=== PATIENT | female | born 1980 | race Caucasian/White ===

== ENCOUNTER 2017-10-11 12:50 | Emergency (ER) | payer MEDICAID, SELFPAY ==
[2017-10-11 12:57] VITALS: BP 108/68; PULSE 93; RESP 20; TEMP 37; O2SAT 98; BMI 38.4
[2017-10-11 13:09] LABS: UTC Strep Screen (Rapid) Positive (Negative)
--- NOTE | 2017-10-11 13:12 | HMH.EDUTC ---
[facility] [place]: Strep [place] Disposition: Home, Self-Care Condition on Discharge: Good Instructions: DI for Strep Throat Additional Instructions: * You were given an antibiotic injection today, Bicillin. You do NOT need additional antibiotics. . * change toothbrush and toothpaste 24-48 hours after starting antibiotic * Monitor Temp. Tylenol every 4 hours as needed no more then 5 times a day or 4000mg in 24 hours and/or ibuprofen every 6 hours as needed no more then 3200mg in 24 hours (as long as your primary care doctor has told you that it is ok to take both) for fever/aches/pain. ER if fever no less than 101 despite tylenol and Ibuprofen * Encourage fluids, water, gatorade, powerade, pedialyte if /toddler/child * cold fluids, popsicles, ice cream feel good * you are contagious until you have taken the antibiotic for 24 hours. * Avoid kissing anyone, including parents. No eating or drinking after anyone. You are contagious. Referrals: Manny Rodriguez [Primary Care Provider] - (Follow up IMMEDIATELY for new or worsening symptoms OR no noticeable improvement over the next 24-48 hours. 911 for difficulty breathing or swallowing ) Time of Disposition: 13:34 Medical Decision Making - Jose Inquiry Pt receiving controlled substance: No Vital Signs: 10/11/17 12:57 10/11/17 13:36 Temperature 98.6 F 98.8 F Temperature Source Oral Oral Pulse Rate 88 Pulse Rate [Right Brachial] 93 H Respiratory Rate 20 20 Blood Pressure 110/72 Blood Pressure [Right Arm] 108/68 Blood Pressure Mean [Right Arm] 81 Blood Pressure Source Automatic Cuff Blood Pressure Source [Right Arm] Automatic Cuff Blood Pressure Position Sitting Blood Pressure Position [Right Arm] Sitting 02 Sat by Pulse Oximetry 98 Oxygen Delivery Method Room Air Room Air - Lab Data Lab results reviewed: Yes: I reviewed the patient's lab results. Lab Results 10/11/17 13:00: Strep Scn Rapid Clinic Positive A Orders (Tests/Meds): ED MEDICATIONS Discontinued Medications Generic Name Dose Route Start Last Admin Trade Name Freq PRN Reason Stop Dose Admin Penicillin G Benzathine 1,200,000 unit 10/11/17 13:31 10/11/17 13:38 Bicillin La 1,200,000 Units/2ml Syringe IM 10/11/17 13:32 1,200,000 unit ONCE ONE Administration Protocol [facility] [place] - General Stated complaint: sore throat Time Seen by Provider: 10/11/17 13:12 Mode of Arrival: Family Vehicle Source of Information: Patient Limitations: No Limitations Description of Symptoms (Recalled from Triage Doc. by RN): C/O SORE THROAT AND DIFFICULTY SWALLOWING HEENT Symptoms (Recalled from RN notes): Yes Resp Symptoms (Recalled from RN notes): No Skin Symptoms (Recalled from RN notes): No MS Symptoms (Recalled from RN notes): No Functional Status (Recalled from RN notes): N/A - History of Present Illness Provider Complaint: c/o sore throat starting yesterday. Son dx w/ strep yesterday. pt's sore throat worse today. No fever. Vomited up daily meds this morning. Intermittent nausea since. Son rcvd antibiotic injection yesterday and if strep, pt would like the same. - Related Data Home Medications Medication Instructions Recorded Confirmed Levothyroxine Sodium 50 mcg PO DAILY 10/11/17 10/11/17 [Levothyroxine 50mcg (0.05mg) Tab] Multivitamin [Multi-Vitamin Plain] 1 each PO DAILY 10/11/17 10/11/17 Omeprazole [Omeprazole 20mg 20 mg PO DAILY 10/11/17 10/11/17 Capsule] Ursodiol [Actigall 300mg capsule] 300 mg PO BID 10/11/17 10/11/17 Allergies Allergy/AdvReac Type Severity Reaction Status Date / Time No Known Allergies Allergy Verified 10/11/17 13:02 - Worker's Comp Is this a Worker's Comp case?: No [facility] History I have reviewed the patient's past medical history: Yes Medical History: Reports:: Gastroesophageal Reflux Disease(GERD) Denies:: Diabetes Mellitus Type 1, Diabetes Mellitus Type 2 Other Medical History: Reports:
[2017-10-11 13:36] VITALS: BP 110/72; PULSE 88; RESP 20; TEMP 37.1; O2SAT 99
== END 2017-10-11 13:52 | disposition home or self-care (01) ==
PROVIDERS: Emergency Provider Nurse Practitioner Family; Family Provider Internal Medicine; PCP Internal Medicine
DX: J02.0 Streptococcal pharyngitis (principal); K21.9 Gastro-esophageal reflux disease without esophagitis; E03.9 Hypothyroidism, unspecified
CPT/HCPCS: 87880; 96372; 99201; J0561

== ENCOUNTER → 2018-01-10 08:44 | Outpatient (CLI) | payer MEDICAID, SELFPAY ==
--- NOTE | 2018-01-10 08:45 | MM_ITS ---
MM Dig screening mamm BI w/CAD CAD Screening COMPARISON: None, this is baseline INDICATION: There is a history of breast cancer patient's paternal aunt. TECHNIQUE: Standard CC and MLO images were obtained. R2 CAD reviewed. FINDINGS: Scattered fibroglandular densities are seen in both breast and the findings are bilateral and symmetrical. There is no suspicious lesion and there are no suspicious microcalcifications. There are couple benign-appearing calcifications left breast. IMPRESSION: Fibrofatty parenchyma with no suspicious lesion seen BI-RADS Category: 2 Benign Finding(s) RECOMMENDED FOLLOW-UP: 1YR - 1 YEAR FOLLOW-UP (A letter has been sent to the patient regarding results of the study.)
== END ==
PROVIDERS: Family Provider Internal Medicine; PCP Internal Medicine; Visit Provider Obstetrics & Gynecology
DX: Z12.31 Encounter for screening mammogram for malignant neoplasm of breast (principal); Z80.3 Family history of malignant neoplasm of breast
CPT/HCPCS: 77067

== ENCOUNTER → 2019-07-07 09:41 | Outpatient (CLI) | payer OTHER, SELFPAY ==
[2019-07-07 10:05] LABS: Basophils % 0.4 % (0.1-2.0); Eosinophils # 0.2 K/mm3 (0.0-0.4); Eosinophils % 1.7 % (0.1-12.0); Hematocrit 44.8 % (37.0-47.0); Hemoglobin 14.2 g/dL (12.2-16.2); Lymphocytes % 22.9 % (10-50); Mean Corpuscular HGB Conc 31.7 g/dL (31.8-35.4); Mean Corpuscular Hemoglobin 28.5 pg (27.0-31.2); Mean Corpuscular Volume 89.9 fl (81-99); Mean Platelet Volume 7.6 fl (7.4-10.4); Monocytes # 0.6 K/mm3 (0.1-1.0); Monocytes % 6.8 % (1.7-9.3); Neutrophils # 5.8 K/mm3 (1.8-7.8); Neutrophils % 68.2 % (37.0-80.0); Platelet Count 355 K/mm3 (142-424); Red Blood Count 4.98 M/mm3 (4.20-5.40); Red Cell Distribution Width 12.8 % (11.5-17.5); White Blood Count 8.5 K/mm3 (4.8-10.8)
[2019-07-07 11:05] LABS: Alanine Aminotransferase 14 U/L (12-78); Albumin Level 3.2 gm/dL (3.4-5.0); Albumin/Globulin Ratio 0.9 (1.1-1.8); Alkaline Phosphatase 67 U/L (46-116); Anion Gap 13.2 mEq/L (5-15); Aspartate Amino Transferase 6 U/L (15-37); Bilirubin,Total 0.5 mg/dL (0.2-1.0); Blood Urea Nitrogen 13 mg/dL (7-18); Calcium 8.1 mg/dL (8.5-10.1); Carbon Dioxide 26 mmol/L (21.0-32.0); Chloride 107 mmol/L (98-107); Creatinine,Serum 0.81 mg/dL (0.55-1.02); Estimated Glomerular Filt Rate 80 ml/min (>60); Free T4 (Free Thyroxine) 1.09 ng/dl (0.76-1.46); GFR (African American) 96 ML/MIN (>60); Globulin 3.6 gm/dl (1.3-3.2); Glucose 62 mg/dL (74-106); Potassium 4.2 mmoL/L (3.5-5.1); Sodium 142 mmol/L (136-145); Thyroid Stimulating Hormone 1.01 uIU/ml (0.358-3.740); Total Protein,Serum 6.8 gm/dL (6.4-8.2)
[2019-07-08 11:12] LABS: Vitamin B12 899 pg/mL (232-1245); Vitamin D 25 Hydroxy 31.2 ng/mL (30.0-100.0)
== END ==
PROVIDERS: Visit Provider Internal Medicine
DX: K51.90 Ulcerative colitis, unspecified, without complications (principal); E03.9 Hypothyroidism, unspecified; E55.9 Vitamin D deficiency, unspecified
CPT/HCPCS: 36415; 80053; 82607; 82652; 84439; 84443; 85025

== ENCOUNTER 2020-04-30 18:11 | Emergency (ER) | payer OTHER, SELFPAY ==
[2020-04-30 18:13] VITALS: BP 132/93; PULSE 88; RESP 16; TEMP 36.6; O2SAT 99; BMI 33.6
--- NOTE | 2020-04-30 19:06 | HMH.EDUTC ---
[facility] [place]ression: Viral syndrome Disposition: Home, Self-Care Condition on Discharge: Good Instructions: DI for Viral Syndrome Additional Instructions: Drink plenty of fluids. Take tylenol for pain or fever. Follow up with your regular doctor. GO TO THE ER FOR ANY WORSENING SYMPTOMS FOLLOW THE DIRECTIONS ON THE COVID-19 HAND OUT THAT WE GAVE YOU REGARDING SELF-ISOLATION UNTIL YOU KNOW YOUR COVID-19 RESULTS Referrals: Manny Rodriguez [Primary Care Provider] - Forms: Work/School Release Time of Disposition: 19:08 Medical Decision Making - Medical Records Medical records reviewed: No: I reviewed the patient's medical records. - Jose Inquiry Pt receiving controlled substance: No Vital Signs: 04/30/20 18:13 04/30/20 19:20 Temperature 97.9 F 97.6 F Temperature Source Oral Oral Pulse Rate 88 Pulse Rate [Left Radial] 88 Respiratory Rate 16 16 Blood Pressure 132/92 H Blood Pressure [Right Arm] 132/93 H Blood Pressure Mean [Right Arm] 106 Blood Pressure Source Automatic Cuff Blood Pressure Source [Right Arm] Automatic Cuff Blood Pressure Position Sitting Blood Pressure Position [Right Arm] Sitting 02 Sat by Pulse Oximetry 99 Oxygen Delivery Method Room Air Room Air - Lab Data Lab results reviewed: Yes: I reviewed the patient's lab results. Lab Results 04/30/20 19:01: Strep Scn Rapid Clinic Negative Orders (Tests/Meds): ORDERS Category Date Time Status Covid-19 Nasal PCR ([facility]) Routine Lab 04/30/20 19:20 Received Strep Screen Confirmation Stat Micro 04/30/20 19:01 [place] [facility] [place] - General Stated complaint: Sore throat, Runnie nose Time Seen by Provider: 04/30/20 18:25 Mode of Arrival: Ambulatory Source of Information: Patient Limitations: No Limitations Description of Symptoms (Recalled from Triage Doc. by RN): c/o sore throat, runny nose for a few days HEENT Symptoms (Recalled from RN notes): Yes Resp Symptoms (Recalled from RN notes): No Skin Symptoms (Recalled from RN notes): No MS Symptoms (Recalled from RN notes): No Functional Status (Recalled from RN notes): wnl - History of Present Illness Provider Complaint: She c/o sore throat and a runny nose for the past 2 days. She denies any known exposure to covid-19. - Related Data Home Medications Medication Instructions Recorded Confirmed budesonide 2 mg/actuation rectal g OK 02/22/20 foam diphenoxylate-atropine 2.5 1 tab PO PRN tab 02/22/20 mg-0.025 mg tablet mesalamine 0.375 gram g PO 02/22/20 capsule,extended release 24 hr nortriptyline 10 mg capsule 10 mg PO DAILY cap 02/22/20 vedolizumab 300 mg intravenous mg IV 02/22/20 solution levothyroxine 75 mcg tablet 75 mcg PO DAILY tab 04/04/20 Allergies Allergy/AdvReac Type Severity Reaction Status Date / Time No Known Allergies Allergy Verified 04/04/20 09:09 - Worker's Comp Is this a Worker's Comp case?: No [facility] History - Hepatitis A Screen Drug use history?: No High risk sexual behaviors?: No History of sexually transmitted infection?: No Currently employed?: No Childcare worker?: No Do you have indoor plumbing?: Yes Do you have electricity?: Yes Attestation statement:: This patient has been screened for Hepatitis A risk factors. I have reviewed the patient's past medical history: Yes Medical History: Reports:: Gastroesophageal Reflux Disease(GERD) Denies:: Diabetes Mellitus Type 1, Diabetes Mellitus Type 2 Other Medical History: Reports: Hypothyroidism Comment: Ulcerative colitis. HPV. PNEUMONIA Other Surgeries: Yes: , Tubal Ligation, Other Amputation: No Fractures: Yes (ANKLE) Comment: EAR TUBES CHILD. P* C/S--2010. BTL--2011. Dx HSC, Fx D&C, Endometrial PolypX--2015 - Social History Smoking Status: Never smoker Alcohol Intake: never Alcohol Intake Frequency:: other Substance Use Type: denies use Occupational Status: other, employed Family Hx:: Stroke
[2020-04-30 19:20] VITALS: BP 132/92; PULSE 88; RESP 16; TEMP 36.4; O2SAT 99
[2020-04-30 20:12] LABS: UTC Strep Screen (Rapid) Negative (Negative)
== END 2020-04-30 19:37 | disposition home or self-care (01) ==
PROVIDERS: Emergency Provider Nurse Practitioner Family; PCP Internal Medicine
DX: Z20.828 Contact with and (suspected) exposure to other viral communicable diseases (principal); B34.9 Viral infection, unspecified; K21.9 Gastro-esophageal reflux disease without esophagitis; E03.9 Hypothyroidism, unspecified
CPT/HCPCS: 87880; 99202; U0003

== ENCOUNTER 2020-10-26 17:06 | Emergency (ER) | payer OTHER, SELFPAY ==
[2020-10-26 17:07] VITALS: BP 107/67; PULSE 112; RESP 18; TEMP 37; O2SAT 100; BMI 33.6
--- NOTE | 2020-10-26 17:17 | ECG_ITS ---
APPROVED REPORT Exam: Resting ECG HR:96 bpm ECG Measurements Heart Rate 96 AXES WV 122 P 35 QRSd 82 QRS 76 QT 342 T 54 QTc 432 Conclusion Normal sinus rhythm Normal ECG Electronically signed by : Pepe Rodriguez, 10/27/2020 07:24:40
--- NOTE | 2020-10-26 17:19 | HMH.EDGENADL ---
ED Disposition Clinical Impression: Syncope Qualifiers: Syncope type: vasovagal syncope Qualified Code(s): R55 - Syncope and collapse Lip laceration Qualifiers: Encounter type: initial encounter Qualified Code(s): S01.511A - Laceration without foreign body of lip, initial encounter Disposition: Home, Self-Care Condition on Discharge: Fair Instructions: DI for Syncope in Adults (Fainting), DI for Laceration Repair-Skin Glue Additional Instructions: You have been evaluated for syncope. Possibly due to dehydration and diarrheal illness. Please take Zofran for nausea. Stay hydrated. Follow-up with your primary care doctor for symptom recheck in 24 to 48 hours. Return to the emergency department for any new or worsening symptoms. Prescriptions: ondansetron HCL [Ondansetron 4mg tab*] 4 mg PO Q6 PRN #12 tab PRN Reason: Nausea And Vomiting Transmission Status: Received by [id number] Referrals: Manny Rodriguez [Primary Care Provider] - Time of Disposition: 19:19 - Critical Care Critical Care Time: No Attestation: On , the high probability of a clinically significant, sudden or life threatening deterioration of the following system(s) required my full and direct attention, intervention and personal management. The time I documented below is in addition to time spent performing reported procedures but includes the following listed in this critical care notation. Medical Decision Making - Medical Records Medical records reviewed: Yes: I reviewed the patient's medical records. - Jose Inquiry Pt receiving controlled substance: No Vital Signs: 10/26/20 17:07 Temperature 98.6 F Temperature Source Oral Pulse Rate [Left Radial] 112 H Respiratory Rate 18 Blood Pressure [Right Arm] 107/67 L Blood Pressure Mean [Right Arm] 80 Blood Pressure Source [Right Arm] Automatic Cuff Blood Pressure Position [Right Arm] Sitting 02 Sat by Pulse Oximetry 100 Oxygen Delivery Method Room Air - Lab Data Lab Results 10/26/20 17:40: Urine Color Yellow, Urine Appearance Sl cloudy, Urine pH 6.0, Ur Specific Arley >= 1.030, Urine Protein Trace, Urine Glucose (UA) Negative, Urine Ketones 2+, Urine Blood 3+, Urine Nitrate Negative, Urine Bilirubin Negative, Urine Urobilinogen 0.2, Ur Leukocyte Esterase Negative, Urine RBC Occasional, Urine WBC 20-50, Ur Squamous Epith Cells 10-20, Urine Bacteria 4+, Urine Mucus 3+ 10/26/20 17:40: Urine HCG, Qual Negative 10/26/20 18:52: WBC 14.1 H, RBC 5.10, Hgb 14.9, Hct 46.5, MCV 91.2, MCH 29.3, MCHC 32.1, RDW 12.7, Plt Count 339, MPV 7.2 L, Neut % (Auto) 91.1 H, Lymph % (Auto) 4.4 L, [place] % (Auto) 2.9, Eos % (Auto) 1.4, Baso % (Auto) 0.2, Neut # (Auto) 12.9 H, Lymph # (Auto) 0.6 L, [place] # (Auto) 0.4, Eos # (Auto) 0.2, Baso # (Auto) 0.0 10/26/20 18:52: Sodium 138, Potassium 4.2, Chloride 107, Carbon Dioxide 22, Anion Gap 13.2, BUN 14, Creatinine 0.80, Estimated Creat Clear 130, Estimated GFR 80, Est GFR ( Amer) 97, Glucose 113 H, Calcium 9.0, Total Bilirubin 0.9, AST 21, ALT 12, Alkaline Phosphatase 64, Total Protein 7.5, Albumin 4.3, Globulin 3.2, Albumin/Globulin Ratio 1.3 Result diagrams: 10/26/20 18:52 10/26/20 18:52 Orders (Tests/Meds): ED MEDICATIONS Discontinued Medications Generic Name Dose Route Start Last Admin Trade Name Freq PRN Reason Stop Dose Admin Lidocaine HCl 5 ml 10/26/20 17:18 Lidocaine 1% 10ml Mdv SQ 10/26/20 17:19 ONCE ONE ORDERS Category Date Time Status CBC w/Auto Diff [Complete Blood Count Auto Diff] Stat Lab 10/26/20 18:52 Results Urine Culture Stat Micro 10/26/20 17:40 Received EKG Request [ECG Request by /Nse] Stat Y 10/26/20 17:17 Ordered Medical Decision Narrative: In summary this is a 40-year-old female presenting to the emergency department after syncope. She is clinically stable on arrival. Vital signs within normal limits. Has a laceration on the inner and outer portion of the lower lip on the left. Tet
[2020-10-26 17:44] LABS: Microscopic, Urine URINE MICROSCOPIC (MICROSCOPIC)
[2020-10-26 17:51] LABS: Appearance,Urine SL CLOUDY (Clear); Blood, Urine 3+ (Negative); Color,Urine YELLOW (Yellow); Glucose,Urine (UA) Negative (Negative); Ketones,Urine 2+ (Negative); Leukocyte Esterase,Urine Negative (Negative); Nitrate,Urine Negative (Negative); Protein,Urine TRACE (Negative); Specific Gravity, Urine >= 1.030 (1.005-1.030); Urobilinogen,Urine 0.2 EU/dl (0.2)
[2020-10-26 17:53] LABS: Urine Pregnancy, HCG Qual. Negative (Negative)
[2020-10-26 17:58] LABS: Bilirubin,Urine Negative (Negative)
[2020-10-26 18:09] LABS: Bacteria,Urine 4+ /lpf; Mucus,Urine 3+ /lpf; RBC,Urine Occasional #/hpf (0-3); WBC,Urine 20-50 #/hpf (0-3)
[2020-10-26 19:04] LABS: Basophils % 0.2 % (0.1-2.0); Eosinophils # 0.2 K/mm3 (0.0-0.4); Eosinophils % 1.4 % (0.1-12.0); Hematocrit 46.5 % (37.0-47.0); Hemoglobin 14.9 g/dL (12.2-16.2); Lymphocytes # 0.6 K/mm3 (0.7-4.5); Lymphocytes % 4.4 % (10-50); Mean Corpuscular HGB Conc 32.1 g/dL (31.8-35.4); Mean Corpuscular Hemoglobin 29.3 pg (27.0-31.2); Mean Corpuscular Volume 91.2 fl (81-99); Mean Platelet Volume 7.2 fl (7.4-10.4); Monocytes # 0.4 K/mm3 (0.1-1.0); Monocytes % 2.9 % (1.7-9.3); Neutrophils # 12.9 K/mm3 (1.8-7.8); Neutrophils % 91.1 % (37.0-80.0); Platelet Count 339 K/mm3 (142-424); Red Cell Distribution Width 12.7 % (11.5-17.5); White Blood Count 14.1 K/mm3 (4.8-10.8)
[2020-10-26 19:06] LABS: MANUAL DIFFERENTIAL MANUAL DIFFERENTIAL (MANUAL DIFF)
[2020-10-26 19:10] LABS: Alanine Aminotransferase 12 U/L (12-78); Albumin Level 4.3 g/dl (3.5-5.0); Albumin/Globulin Ratio 1.3 (1.1-1.8); Alkaline Phosphatase 64 U/L (38-126); Anion Gap 13.2 mEq/L (5-15); Aspartate Amino Transferase 21 U/L (14-36); Bilirubin,Total 0.9 mg/dl (0.2-1.3); Blood Urea Nitrogen 14 mg/dl (7-17); Carbon Dioxide 22 mmol/L (22.0-30.0); Chloride 107 mmol/L (98-107); Creatinine Clearance Estimated 130 mL/min (50-200); Estimated Glomerular Filt Rate 80 ml/min (>60); GFR (African American) 97 ML/MIN (>60); Globulin 3.2 g/dL (1.3-3.2); Glucose 113 mg/dl (74-100); Potassium 4.2 mmoL/L (3.5-5.1); Sodium 138 mmol/L (136-145); Total Protein,Serum 7.5 g/dl (6.3-8.2)
[2020-10-26 19:26] VITALS: BP 108/77; PULSE 90; RESP 16; TEMP 36.9; O2SAT 100
[2020-10-26 19:35] LABS: Eosinophils % 1 % (0-3); Lymphocytes % 8 % (10-50); Monocytes % 2 % (2-9); Neutrophils % 89 % (42-76); Platelet Estimate Normal; RBC Morphology Normal; Total Cells Counted 100
== END 2020-10-26 19:28 | disposition home or self-care (01) ==
PROVIDERS: Emergency Provider Emergency Medicine; PCP Internal Medicine
DX: R55 Syncope and collapse (principal); S01.511A Laceration without foreign body of lip, initial encounter; W18.12XA Fall from or off toilet with subsequent striking against object, initial encounter; Y92.012 Bathroom of single-family (private) house as the place of occurrence of the external cause; E03.9 Hypothyroidism, unspecified; K21.9 Gastro-esophageal reflux disease without esophagitis; Z79.899 Other long term (current) drug therapy
CPT/HCPCS: 12011; 80053; 81001; 81025; 85007; 85025; 87086; 93005; 99283

== ENCOUNTER 2020-12-19 09:07 | Emergency (ER) | payer OTHER, SELFPAY ==
[2020-12-19 09:10] VITALS: BP 108/66; PULSE 68; RESP 18; TEMP 37.1; O2SAT 98; BMI 34.5
[2020-12-19 09:27] VITALS: BP 108/66; PULSE 68; RESP 18; TEMP 37.1; O2SAT 98
--- NOTE | 2020-12-19 09:40 | HMH.EDUTC ---
[facility] [place] Dis[place] Clinical Impression: Bee sting, Cellulitis Disposition: Home, Self-Care Condition on Discharge: Good Instructions: How to Care for an Insect Bite or Sting Additional Instructions: Avoid contact with the offending substance. Don't start the oral steroids until tomorrow. Don't put the topical steroids (triamcinolone) on your face or your groin. Follow up with your regular doctor. GO TO THE ER FOR ANY WORSENING SYMPTOMS OR CONCERNS Prescriptions: methylPREDNISolone [Medrol] 4 mg PO DIRECTED 6 Days #21 tab.ds.pk Transmission Status: Received by [facility] Triamcinolone Acetonide 1 applicatio TP TIDP PRN 7 Days #1 tube PRN Reason: Itching Transmission Status: Received by [facility] Referrals: Manny Rodriguez [Primary Care Provider] - Time of Disposition: 09:43 Medical Decision Making - Medical Records Medical records reviewed: No: I reviewed the patient's medical records. - Jose Inquiry Pt receiving controlled substance: No Vital Signs: 12/19/20 09:10 12/19/20 09:27 Temperature 98.7 F 98.7 F Temperature Source Oral Pulse Rate 68 Pulse Rate [Right Brachial] 68 Respiratory Rate 18 18 Blood Pressure 108/66 L Blood Pressure [Right Arm] 108/66 L Blood Pressure Mean [Right Arm] 80 Blood Pressure Source [Right Arm] Automatic Cuff Blood Pressure Position [Right Arm] Sitting 02 Sat by Pulse Oximetry 98 Oxygen Delivery Method Room Air Orders (Tests/Meds): ED MEDICATIONS Discontinued Medications Generic Name Dose Route Start Last Admin Trade Name Freq PRN Reason Stop Dose Admin Methylprednisolone Sodium Succinate 125 mg 12/19/20 09:24 12/19/20 09:25 Methylprednisolone Sod Succ 125mg Vial IM 12/19/20 09:25 125 mg ONCE ONE Administration [facility] [place] HPI - General Stated complaint: bee sting Time Seen by Provider: 12/19/20 09:15 Mode of Arrival: Ambulatory Source of Information: Patient Limitations: No Limitations Description of Symptoms (Recalled from Triage Doc. by RN): PATIENT C/O BEE STING TO LEFT INNER THIGH THAT HAPPENED ON WEDNESDAY. PATIENT STATES IT'S ITCHY, REDNESS AROUND STING NOTED HEENT Symptoms (Recalled from RN notes): No Resp Symptoms (Recalled from RN notes): No Skin Symptoms (Recalled from RN notes): Yes MS Symptoms (Recalled from RN notes): No Functional Status (Recalled from RN notes): WNL - History of Present Illness Provider Complaint: She states that she was stung by a bee on her left upper leg 2 days ago. Since then, the site has been very itchy and there is redness of the site. - Related Data Home Medications Medication Instructions Recorded Confirmed levothyroxine 75 mcg tablet 75 mcg PO DAILY tab 04/04/20 12/19/20 Mesalamine [Apriso] 4 cap PO DAILY 12/19/20 12/19/20 Previous Rx's Medication Instructions Recorded Triamcinolone Acetonide 1 applicatio TP TIDP PRN 7 Days #1 12/19/20 tube methylPREDNISolone [Medrol] 4 mg PO DIRECTED 6 Days #21 12/19/20 tab.[email or web address] Allergies Allergy/AdvReac Type Severity Reaction Status Date / Time No Known Allergies Allergy Verified 11/08/20 11:33 - Worker's Comp Is this a Worker's Comp case?: No [facility] History - Hepatitis A Screen Drug use history?: No High risk sexual behaviors?: No History of sexually transmitted infection?: No Currently employed?: No Childcare worker?: No Do you have indoor plumbing?: Yes Do you have electricity?: Yes Attestation statement:: This patient has been screened for Hepatitis A risk factors. I have reviewed the patient's past medical history: Yes Medical History: Reports:: Gastroesophageal Reflux Disease(GERD) Denies:: Diabetes Mellitus Type 1, Diabetes Mellitus Type 2 Other Medical History: Reports: Hypothyroidism Comment: Ulcerative colitis. HPV. PNEUMONIA Laterality Cases: Bilateral: Myringotomy (Ear Tubes) Other Surgeries: Yes: , Tubal Ligation, Other Amputation: No Fractures: Yes (
== END 2020-12-19 09:44 | disposition home or self-care (01) ==
PROVIDERS: Emergency Provider Nurse Practitioner Family; PCP Internal Medicine
DX: T63.441A Toxic effect of venom of bees, accidental (unintentional), initial encounter (principal); L03.116 Cellulitis of left lower limb; K21.9 Gastro-esophageal reflux disease without esophagitis; E03.9 Hypothyroidism, unspecified
CPT/HCPCS: 96372; 99202; G0463

== ENCOUNTER 2021-02-21 09:10 | Emergency (ER) | payer OTHER, SELFPAY ==
[2021-02-21 09:10] VITALS: BP 113/71; PULSE 92; RESP 22; TEMP 37.1; O2SAT 100; BMI 35.2
--- NOTE | 2021-02-21 09:54 | HMH.EDUTC ---
[facility] [place] Clinical Impression: Strep throat Disposition: Home, Self-Care Condition on Discharge: Good Instructions: Strep Throat, DI for Strep Throat, Amoxicillin Additional Instructions: *Monitor Temp, Over the counter Motrin or Tylenol as directed/as needed Tylenol every 4 hours and Motrin every 6 hours (as long as your family doctor has told you that you can take it) for fever or pain. and straight to ER if unable to lower temp less than 101.0 after medication given *Warm salt water gargles may help to soothe the throat *Throat Lozenges *Warm fluids like tea with honey may help to soothe the throat *Sleep elevated *Humidifier/Vaporizer *If you did not take Penicillin shot or was unable to, start taking antibiotic immediately and make sure that you take it for the FULL length of time although you should start to feel better in 24-48 hours *change toothbrush and toothpaste 24-48 hours after starting to take antibiotics so you do not reinfect yourself Monitor Temp. Tylenol and/or Ibuprofen as needed. ER if fever is no less than 101 despite alternating Tylenol and Ibuprofen * Encourage fluids, water, Gatorade, powerade, pedialyte if /toddler/or child *Cold fluids, popsicles and ice cream may feel good on his throat Follow up IMMEDIATELY for new or worsening symptoms or no Noticeable improvement over the next 48-72 hours. 911 for difficulty breathing or swallowing Prescriptions: Amoxicillin [Amoxicillin 500mg Cap] 500 mg PO TID #30 cap Transmission Status: Pending to [id number] Referrals: Manny Rodriguez [Primary Care Provider] - As needed Time of Disposition: 10:00 Medical Decision Making - Jose Inquiry Pt receiving controlled substance: No Jose was queried for this patient: No Vital Signs: 02/21/21 09:10 Temperature 98.7 F Temperature Source Oral Pulse Rate [Right Brachial] 92 H Respiratory Rate 22 Blood Pressure [Right Arm] 113/71 Blood Pressure Mean [Right Arm] 85 Blood Pressure Source [Right Arm] Automatic Cuff Blood Pressure Position [Right Arm] Sitting 02 Sat by Pulse Oximetry 100 Oxygen Delivery Method Room Air - Lab Data Lab results reviewed: Yes: I reviewed the patient's lab results. Lab Results 02/21/21 09:43: Strep Scn Rapid Clinic Positive A [facility] [place] HPI - General Stated complaint: sore throat Time Seen by Provider: 02/21/21 09:54 Mode of Arrival: Ambulatory Source of Information: Patient Limitations: No Limitations Description of Symptoms (Recalled from Triage Doc. by RN): PATIENT C/O SORE THROAT SINCE WEDNESDAY NIGHT HEENT Symptoms (Recalled from RN notes): Yes Resp Symptoms (Recalled from RN notes): No Skin Symptoms (Recalled from RN notes): No MS Symptoms (Recalled from RN notes): No Functional Status (Recalled from RN notes): WNL - History of Present Illness Provider Complaint: Patient state that she has been having sore throat for a couple of days that has continued to get worse States that it feels like it did when she had strep throat so she wanted to come in and get checked - Related Data Home Medications Medication Instructions Recorded Confirmed levothyroxine 75 mcg tablet 75 mcg PO DAILY tab 04/04/20 02/21/21 Mesalamine [Apriso] 4 cap PO DAILY 12/19/20 02/21/21 Nortriptyline HCl 10 mg PO DAILY 02/21/21 02/21/21 Previous Rx's Medication Instructions Recorded Amoxicillin [Amoxicillin 500mg 500 mg PO TID #30 cap 02/21/21 Cap] Allergies Allergy/AdvReac Type Severity Reaction Status Date / Time No Known Allergies Allergy Verified 11/08/20 11:33 - Worker's Comp Is this a Worker's Comp case?: No [facility] History - Hepatitis A Screen Drug use history?: No High risk sexual behaviors?: No History of sexually transmitted infection?: No Currently employed?: No Childcare worker?: No Do you have indoor plumbing?: Yes Do you have electricity?: Yes Attestation statement:: This patient has been screened for Hepatit
[2021-02-21 09:56] LABS: UTC Strep Screen (Rapid) Positive (Negative)
[2021-02-21 10:00] VITALS: BP 113/71; PULSE 92; RESP 22; TEMP 37.1; O2SAT 100
== END 2021-02-21 10:05 | disposition home or self-care (01) ==
PROVIDERS: Emergency Provider Nurse Practitioner; PCP Internal Medicine
DX: J02.0 Streptococcal pharyngitis (principal); K21.9 Gastro-esophageal reflux disease without esophagitis; E03.9 Hypothyroidism, unspecified
CPT/HCPCS: 87880; 99202; G0463

== ENCOUNTER 2021-02-28 09:54 | Emergency (ER) | payer OTHER, SELFPAY ==
[2021-02-28 10:10] VITALS: BP 115/72; PULSE 87; RESP 18; TEMP 37; O2SAT 100; BMI 34.9
--- NOTE | 2021-02-28 10:46 | HMH.EDUTC ---
[facility] [place] Disposition Clinical Impression: Cellulitis Qualifiers: Site of cellulitis: unspecified site Qualified Code(s): L03.90 - Cellulitis, unspecified Disposition: Home, Self-Care Condition on Discharge: Good Instructions: Cellulitis, Cephalexin Additional Instructions: *Start antibiotic(s) immediately and be sure to take as ordered for the FULL length of time although you may be feeling better or start to see improvement in the next 24-48 hours *Monitor closely. Outlined redness so that you can monitor easier. Follow up immediately for new or worsening symptoms including but not limited to redness, swelling, streaking from site fever or chills. *Warm compress 15 minutes 3-4 times day *Never squeeze or pop these on your own. Seek immediate medical attention next time this occurs *Monitor Temp. Tylenol every 4 hours as needed and ibuprofen every 6 hours as needed (as long as your primary care doctor has told you that it is ok to take both. For fever, aches, pain. ER if no less that 101 despite Tylenol and ibuprofen Follow up with your family doctor/primary care physician in the next 48-72 hours if no improvement Start oral steriods tomorrow Return if needed Follow up with your Family Doctor if no improvement Stop taking Amoxicillin and start cephalexin Prescriptions: cephALEXin [cephALEXin 500mg capsule*] 500 mg PO TID 7 Days #21 cap Transmission Status: Received by [id number] methylPREDNISolone [Medrol 4mg tab] 4 mg PO DIRECTED #21 tab Transmission Status: Received by [id number] Referrals: Manny Rodriguez [Primary Care Provider] - As needed Time of Disposition: 10:54 Medical Decision Making - Jose Inquiry Pt receiving controlled substance: No Jose was queried for this patient: No Vital Signs: 02/28/21 10:10 02/28/21 11:02 Temperature 98.6 F 98.6 F Temperature Source Oral Pulse Rate 87 Pulse Rate [Right Brachial] 87 Respiratory Rate 18 18 Blood Pressure 115/72 Blood Pressure [Right Arm] 115/72 Blood Pressure Mean [Right Arm] 86 Blood Pressure Source [Right Arm] Automatic Cuff Blood Pressure Position [Right Arm] Sitting 02 Sat by Pulse Oximetry 100 Oxygen Delivery Method Room Air Orders (Tests/Meds): ED MEDICATIONS Discontinued Medications Generic Name Dose Route Start Last Admin Trade Name Freq PRN Reason Stop Dose Admin Methylprednisolone Sodium Succinate 125 mg 02/28/21 10:50 02/28/21 10:52 Methylprednisolone Sod Succ 125mg Vial IM 02/28/21 10:51 125 mg ONCE ONE Administration Medical Decision Narrative: Patient reports she had a tubal and has taken both Cephalexin and Medrol before without reactions or complications [facility] [place] HPI - General Stated complaint: unknown possible bite on the right leg Time Seen by Provider: 02/28/21 10:46 Mode of Arrival: Ambulatory Source of Information: Patient Limitations: No Limitations Description of Symptoms (Recalled from Triage Doc. by RN): PATIENT STATES SHE WAS POSSIBLY BITTEN BY SOMETHING ON HER RIGHT CALF ON WEDNESDAY. AREA AROUND BITE IS RED AND SORE HEENT Symptoms (Recalled from RN notes): No Resp Symptoms (Recalled from RN notes): No Skin Symptoms (Recalled from RN notes): Yes MS Symptoms (Recalled from RN notes): No Functional Status (Recalled from RN notes): WNL - History of Present Illness Provider Complaint: Patient state that she had a couple small bites from something on the back of her right lower leg State that now area is sore looks a little swollen and redness is spreading on her lower leg and tender to the touch Statse that she is currently on Amoxil for strep throat but it isnt helping much and family Told her to come in - Related Data Home Medications Medication Instructions Recorded Confirmed levothyroxine 75 mcg tablet 75 mcg PO DAILY tab 04/04/20 02/28/21 Mesalamine [Apriso] 4 cap PO DAILY 12/19/20 02/28/21 Nortriptyline HCl 10 mg PO DAILY 02/21/21 02/28/21 Amoxicillin [Amoxicil
[2021-02-28 11:02] VITALS: BP 115/72; PULSE 87; RESP 18; TEMP 37; O2SAT 100
== END 2021-02-28 11:07 | disposition home or self-care (01) ==
PROVIDERS: Emergency Provider Nurse Practitioner; PCP Internal Medicine
DX: S80.861A Insect bite (nonvenomous), right lower leg, initial encounter (principal); E03.9 Hypothyroidism, unspecified; K21.9 Gastro-esophageal reflux disease without esophagitis
CPT/HCPCS: 96372; 99202; G0463

== ENCOUNTER 2021-07-15 16:23 | Emergency (ER) | payer OTHER, SELFPAY ==
[2021-07-15 16:30] VITALS: BP 130/83; PULSE 80; RESP 20; TEMP 36.7; O2SAT 98; BMI 36.3
[2021-07-15 16:52] LABS: UTC Strep Screen (Rapid) Positive (Negative)
--- NOTE | 2021-07-15 17:02 | HMH.EDUTC ---
[facility] [place] Disposition Clinical Impression: Strep throat Disposition: Home, Self-Care Condition on Discharge: Good Instructions: Strep Throat, DI for Strep Throat, Amoxicillin and Clavulanic Acid Additional Instructions: *Monitor Temp, Over the counter Motrin or Tylenol as directed/as needed Tylenol every 4 hours and Motrin every 6 hours (as long as your family doctor has told you that you can take it) for fever or pain. and straight to ER if unable to lower temp less than 101.0 after medication given *Warm salt water gargles may help to soothe the throat *Throat Lozenges *Warm fluids like tea with honey may help to soothe the throat *Sleep elevated *Humidifier/Vaporizer *If you did not take Penicillin shot or was unable to, start taking antibiotic immediately and make sure that you take it for the FULL length of time although you should start to feel better in 24-48 hours *change toothbrush and toothpaste 24-48 hours after starting to take antibiotics so you do not reinfect yourself Monitor Temp. Tylenol and/or Ibuprofen as needed. ER if fever is no less than 101 despite alternating Tylenol and Ibuprofen * Encourage fluids, water, Gatorade, powerade, pedialyte if /toddler/or child *Cold fluids, popsicles and ice cream may feel good on his throat Follow up IMMEDIATELY for new or worsening symptoms or no Noticeable improvement over the next 48-72 hours. 911 for difficulty breathing or swallowing Prescriptions: Amoxicillin/Potassium Clav [Augmentin 875-125 Tablet] 1 tab PO Q12H 10 Days #20 tab Transmission Status: Pending to [id number] Referrals: Manny Rodriguez [Primary Care Provider] - As needed Time of Disposition: 17:10 Medical Decision Making - Jose Inquiry Pt receiving controlled substance: No Jose was queried for this patient: No Vital Signs: 07/15/21 16:30 Temperature 98.0 F Temperature Source Oral Pulse Rate [Right Brachial] 80 Respiratory Rate 20 Blood Pressure [Right Arm] 130/83 Blood Pressure Mean [Right Arm] 98 Blood Pressure Source [Right Arm] Automatic Cuff Blood Pressure Position [Right Arm] Sitting 02 Sat by Pulse Oximetry 98 Oxygen Delivery Method Room Air - Lab Data Lab results reviewed: Yes: I reviewed the patient's lab results. Lab Results 07/15/21 16:43: Strep Scn Rapid Clinic Positive A [facility] [place] HPI - General Stated complaint: sore throat,ARNOLD,Congestion Time Seen by Provider: 07/15/21 17:02 Mode of Arrival: Ambulatory Source of Information: Patient Limitations: No Limitations Description of Symptoms (Recalled from Triage Doc. by RN): PATIENT RUNNY, SORE THROAT, AND SINUS PRESSURE SINCE WEDNESDAY HEENT Symptoms (Recalled from RN notes): Yes Resp Symptoms (Recalled from RN notes): No Skin Symptoms (Recalled from RN notes): No MS Symptoms (Recalled from RN notes): No Functional Status (Recalled from RN notes): WNL - History of Present Illness Provider Complaint: Patient states that she has been having sore throat and sinus pain and pressure since Wednesday that has continued to get worse States that she thinks she may have a sinus infection or strep throat - Related Data Home Medications Medication Instructions Recorded Confirmed levothyroxine 75 mcg tablet 75 mcg PO DAILY tab 04/04/20 07/15/21 Mesalamine [Apriso] 4 cap PO DAILY 12/19/20 07/15/21 Vedolizumab [Entyvio 300mg vial] 300 mg IM MONTHLY 02/28/21 07/15/21 Previous Rx's Medication Instructions Recorded Amoxicillin/Potassium Clav 1 tab PO Q12H 10 Days #20 tab 07/15/21 [Augmentin 875-125 Tablet] Allergies Allergy/AdvReac Type Severity Reaction Status Date / Time No Known Allergies Allergy Verified 06/16/21 11:36 - Worker's Comp Is this a Worker's Comp case?: No [facility] History - Hepatitis A Screen Drug use history?: No High risk sexual behaviors?: No History of sexually transmitted infection?: No Currently employed?: No Childcare worker?: No Do you have indoor plumbing?: Yes
[2021-07-15 17:12] VITALS: BP 130/83; PULSE 80; RESP 20; TEMP 36.7; O2SAT 98
== END 2021-07-15 17:16 | disposition home or self-care (01) ==
PROVIDERS: Emergency Provider Nurse Practitioner; PCP Internal Medicine
DX: J02.0 Streptococcal pharyngitis (principal); K21.9 Gastro-esophageal reflux disease without esophagitis
CPT/HCPCS: 87880; 99202; G0463

== ENCOUNTER 2021-08-07 13:33 | Emergency (ER) | payer OTHER, SELFPAY ==
[2021-08-07 15:45] VITALS: BP 119/80; PULSE 87; RESP 18; TEMP 36.7; O2SAT 98; BMI 34.2
--- NOTE | 2021-08-07 16:18 | HMH.EDUTC ---
[facility] [place] Disposition Clinical Impression: Sinusitis Qualifiers: Sinusitis location: unspecified location Chronicity: unspecified Qualified Code(s): J32.9 - Chronic sinusitis, unspecified Disposition: Home, Self-Care Condition on Discharge: Good Instructions: Sinusitis, DI for Sinusitis Additional Instructions: *Monitor Temp, Over the counter Motrin or Tylenol as directed/as needed Tylenol every 4 hours and Motrin every 6 hours (as long as your family doctor has told you that you can take it) for fever or pain. and straight to ER if unable to lower temp less than 101.0 after medication given *Warm salt water gargles may help to soothe the throat *Throat Lozenges *Warm fluids like tea with honey may help to soothe the throat *Sleep elevated *Humidifier/Vaporizer Your throat swab was sent for culture. Those results are typically sent to your primary care. Be sure to follow up in 2-3 days with your family doctor/primary care physician if no improvement so they can review those result and treat if necessary. If you don?t have a primary care doctor, I recommend you get one but in the mean time, you will have to return to a walk in clinic Follow up IMMEDIATELY for new or worsening symptoms or no Noticeable improvement over the next 48-72 hours. 911 for difficulty breathing or swallowing You were tested for today for COVID19 your test result should be back in the next 48-72 hours, you may check your results on the [facility] [employer] health portal If you are positive someone from the Hospital will be calling you Make sure to drink plenty of water and gatoraid and take vitamin C, D and zinc Prescriptions: methylPREDNISolone [Medrol 4mg tab] 4 mg PO DIRECTED #21 tab Transmission Status: Received by [id number] Azithromycin [Z-Everton 250mg Tab] 250 mg PO DIRECTED #6 tab Transmission Status: Received by [id number] Referrals: Manny Rodriguez [Primary Care Provider] - As needed Forms: Work/School Release Medical Decision Making - Jose Inquiry Pt receiving controlled substance: No Jose was queried for this patient: No Vital Signs: 08/07/21 15:45 08/07/21 16:33 Temperature 98.1 F 98.1 F Temperature Source Oral Pulse Rate 87 Pulse Rate [Right Brachial] 87 Respiratory Rate 18 18 Blood Pressure 119/80 Blood Pressure [Right Arm] 119/80 Blood Pressure Mean [Right Arm] 93 Blood Pressure Source [Right Arm] Automatic Cuff Blood Pressure Position [Right Arm] Sitting 02 Sat by Pulse Oximetry 98 Oxygen Delivery Method Room Air - Lab Data Lab Results 08/07/21 16:05: Group A Strep Rapid Negative Orders (Tests/Meds): ORDERS Category Date Time Status Covid-19 Nasal PCR ([facility]) Routine Lab 08/07/21 16:05 Received Strep Screen Confirmation Stat Micro 08/07/21 16:05 Received [facility] UTC HPI - General Stated complaint: sore throat, cough, runny nose Time Seen by Provider: 08/07/21 16:18 Mode of Arrival: Ambulatory Source of Information: Patient Limitations: No Limitations Description of Symptoms (Recalled from Triage Doc. by RN): PATIENT C/O COUGH, SORE THROAT AND DRAINAGE HEENT Symptoms (Recalled from RN notes): Yes Resp Symptoms (Recalled from RN notes): Yes Skin Symptoms (Recalled from RN notes): No MS Symptoms (Recalled from RN notes): No Functional Status (Recalled from RN notes): WNL - History of Present Illness Provider Complaint: Patient states that she was seen and treated about 3 weeks ago for strep throat State that now she is having sinus pain and pressure along with cough States that she was feeling better from the strep throat but the drainage in the back of her throat has got her throat irritated again - Related Data Previous Rx's Medication Instructions Recorded Azithromycin [Z-Everton 250mg Tab] 250 mg PO DIRECTED #6 tab 08/07/21 methylPREDNISolone [Medrol 4mg 4 mg PO DIRECTED #21 tab 08/07/21 tab] Allergies Allergy/AdvReac Type Severity Reaction Stat
[2021-08-07 16:33] VITALS: BP 119/80; PULSE 87; RESP 18; TEMP 36.7; O2SAT 98
[2021-08-07 16:37] LABS: Strep Scrn Group A (Rapid) Negative (Negative)
== END 2021-08-07 16:39 | disposition home or self-care (01) ==
PROVIDERS: Emergency Provider Nurse Practitioner; PCP Internal Medicine
DX: U07.1 COVID-19 (principal); J32.9 Chronic sinusitis, unspecified; K21.9 Gastro-esophageal reflux disease without esophagitis; E03.9 Hypothyroidism, unspecified
CPT/HCPCS: 87430; 99203; C9803; G0463; U0003; U0005

== ENCOUNTER → 2022-06-01 07:56 | Outpatient (CLI) | payer OTHER, SELFPAY ==
--- NOTE | 2022-06-01 07:59 | MM_ITS ---
PROCEDURE INFORMATION: Exam: MG Bilateral Screening 3D Mammography Exam date and time: 06/01/2022 7:59 AM Age: 42 years old Clinical indication: Screening examination. Her maternal aunt had breast cancer. TECHNIQUE: Imaging protocol: Bilateral Screening tomosynthesis and 2D mammography including computer-aided detection (CAD) when performed. COMPARISON: MG [facility] MM Dig screening mamm BI w/CAD 01/10/2018 9:11 AM FINDINGS: MAMMOGRAPHY: Breast composition: There are scattered areas of fibroglandular density. Mass: No suspicious mass. Architectural distortion: None. Calcifications: No suspicious calcifications. Asymmetric density: None. Skin thickening: None. Axillary adenopathy: None. Implants: Subpectoral silicone implants, contours are unremarkable. Other findings: Bilateral nipple rings. IMPRESSION: No mammographic evidence of malignancy. Annual screening is recommended unless otherwise clinically indicated. ASSESSMENT: BI-RADS Category 1: Negative
== END ==
PROVIDERS: PCP Internal Medicine; Visit Provider Internal Medicine
DX: Z12.31 Encounter for screening mammogram for malignant neoplasm of breast (principal)
CPT/HCPCS: 77063; 77067

== ENCOUNTER → 2022-07-27 12:18 | Outpatient (CLI) | payer OTHER, SELFPAY ==
[2022-07-27 12:53] LABS: Basophils # 0.1 K/mm3 (0-0.2); Eosinophils # 0.2 K/mm3 (0.0-0.4); Hematocrit 42.5 % (37.0-47.0); Hemoglobin 13.8 g/dL (12.2-16.2); Lymphocytes # 2.2 K/mm3 (0.7-4.5); Lymphocytes % 26.9 % (10-50); Mean Corpuscular HGB Conc 32.4 g/dL (31.8-35.4); Mean Corpuscular Hemoglobin 30.2 pg (27.0-31.2); Mean Corpuscular Volume 93.2 fl (81-99); Mean Platelet Volume 7.6 fl (7.4-10.4); Monocytes # 0.6 K/mm3 (0.1-1.0); Monocytes % 6.9 % (1.7-9.3); Neutrophils % 62.2 % (37.0-80.0); Platelet Count 330 K/mm3 (142-424); Red Blood Count 4.56 M/mm3 (4.20-5.40); White Blood Count 8.1 K/mm3 (4.8-10.8)
[2022-07-27 13:36] LABS: Alanine Aminotransferase 15 U/L (12-78); Albumin Level 3.9 g/dl (3.5-5.0); Albumin/Globulin Ratio 1.4 (1.1-1.8); Alkaline Phosphatase 58 U/L (38-126); Anion Gap 10.1 mEq/L (5-15); Aspartate Amino Transferase 19 U/L (14-36); Bilirubin,Total 0.5 mg/dl (0.2-1.3); Blood Urea Nitrogen 11 mg/dl (7-17); Calcium 8.5 mg/dl (8.4-10.2); Carbon Dioxide 26 mmol/L (22.0-30.0); Chloride 109 mmol/L (98-107); Estimated Glomerular Filt Rate 69 ml/min (>60); GFR (African American) 84 ML/MIN (>60); Globulin 2.7 g/dL (1.3-3.2); Glucose 80 mg/dl (74-100); Potassium 4.1 mmoL/L (3.5-5.1); Sodium 141 mmol/L (136-145); Total Protein,Serum 6.6 g/dl (6.3-8.2)
[2022-07-27 13:54] LABS: HCG,Quantitative < 2 mIU/ml (0-5.42)
== END ==
PROVIDERS: PCP Internal Medicine; Visit Provider Obstetrics & Gynecology
DX: N92.0 Excessive and frequent menstruation with regular cycle (principal); Z01.812 Encounter for preprocedural laboratory examination
CPT/HCPCS: 36415; 80053; 84702; 85025

== ENCOUNTER 2022-07-31 06:03 | Day surgery (SDC) | payer OTHER, SELFPAY ==
[2022-07-27 13:34] VITALS: BMI 40.0
[2022-07-31] VITALS (12 sets, daily range): BP systolic 100–113; BP diastolic 56–75; PULSE 69–83; RESP 14–18; TEMP 36.1–43; O2SAT 92–99
--- NOTE | 2022-07-31 07:02 | P.PN_ITS ---
[facility] Disclaimer: The information contained in this section may have been updated after the patient was seen, as this information can be updated by other users. Medical History Allergies History of COVID-19 Hypothyroid Ulcerative colitis Surgical History H/O gastric sleeve H/O tubal ligation History of Family History Other Alcoholism Anemia Cancer Coronary artery disease Diabetes Hyperlipidemia Hypertension Thyroid disorder Social History Smoking Status: Never smoker alcohol intake: current substance use type: denies use current occupational status: employed Travel in the last 8 weeks: None [facility] Anesthesia Checklist Patient Identification Patient Identification: Arm Band Structural Data Admitted From: Home Planned Operative Procedure/s: Hysteroscopy, D&C, Novasure/Myosure Ablation Consent for Planned Operative Procedure(s) Verified: Yes Verified Documents: Surgical Consent and History and Physical NPO Status Verified Time NPO: 00:00 Additional verifications Anesthesia Reactions: No Hx Blood Transfusions: No Blood Transfusion Reaction: No Airway Assessment C-Spine Mobility Assessed: Yes TMJ Mobility Assessed: Yes Dentition: Good Dentition Neurological Assessment Level of Consciousness: Awake and Alert Anesthesia Plan Anesthesia Risk discussed: Yes Anesthesia Plan: Verified ASA Class: II Anesthesia Type: General
--- NOTE | 2022-07-31 08:33 | EXP.ANES.I ---
[facility] Anesthesia Record Part I Anesthesia Record I Intake, IV Amount: 900 Estimated blood loss (mL): 10 Urine output (mL): 0 Blood Products used (#): none Blood Pressure: 100/62 SaO2: 92 Pulse Rate: 83 Respiratory Rate: 16 Temperature: 98.1 F Patient is:: Drowsy and Stable Stable to PACU at:: 08:30
--- NOTE | 2022-07-31 08:42 | EXP.OP.NOTE ---
Date of procedure: 07/31/22 Pre-op Diagnosis:: 1. Heavy menstrual beeding 2. Dysfunctional uterine bleeding 3. Severe dysmenorrhea Post-op Diagnosis:: Same Procedure performed:: D&C Hysteroscopy with Myosure excision of endometrial polyps Novasure Endometrial Ablation Surgeon:: Ramona Ordoñez MD ACUTE COORDINATOR:: Umberto House Anesthesia: GETA Estimated blood loss (mL): 5 Operative findings:: multiple polypoid lesions anterior and posterior uterine cavity Operative note:: The patient was taken to the operating room and general anesthesia was administered. She was prepped/draped in lithotomy position. The anterior lip of the cervix was grasped with a single tooth tenaculum and the cervix was dilated with Kat dilators of serially increasing size until the external os was able to accomodate the hysteroscope. The hysteroscope was advanced through the cervix and into the uterine cavity, which was distended with LR. Once the uterus was sufficiently distended, the cavity was evaluated and revealed multiple polypoid lesions along the anterior and posterior uterine cavity. The Myosure was inserted into the hysteroscope and these lesions were sequentially excised completely, without complication or significant fluid deficit. After the conclusion of this procedure, the Myosure and hysteroscope were removed from the uterus. The uterine cavity sounded to a length of 8cm with a cervical length of 3cm. The Novasure was inserted through the cervix and expanded to fit the width of the uterus, with a width of 4.5cm. After a successful cavity assessment, the device was deployed and the endometrial ablation was completed in 114 seconds. After completion of the ablation, the Novasure was removed from the uterus and the hysteroscope was reinserted into the uterine cavity. The cavity appeared diffusely cauterized. The hysteroscope was removed from the uterus and all instruments removed from the vagina. The tenaculum site was hemostatic. All sponge/lap/needle/instrument counts correct x2. Total EBL: 5cc. The patient was taken out of lithotomy position, extubated and taken to the PACU in stable condition. Condition: stable Disposition: PACU Specimens:: Endometrial Curettings Complications:: None
--- NOTE | 2022-07-31 10:39 | EXP.ANES.II ---
[facility] Anesthesia Record Part II Anesthesia Record Part II Discharge Time: 09:00 Destination: Surgical Day Care (OP Surgery) PACU nurse assessment reviewed?: Yes Patient Condition:: Good Anesthesia Complications:: None Swallowing reflex intact?: Yes Cyanosis?: No Blood Pressure: 106/56 Pulse Rate: 73 Temperature: 98.3 F Mental Status: Alert & Oriented Pain level:: 0 Nausea and/or vomitting:: None Intake, IV Amount: 0
== END 2022-07-31 09:32 | disposition home or self-care (01) ==
PROVIDERS: PCP Internal Medicine; Visit Provider Obstetrics & Gynecology
PROC: (CPT 58563; principal; 2022-07-31 07:30)
DX: N92.0 Excessive and frequent menstruation with regular cycle (principal); N93.8 Other specified abnormal uterine and vaginal bleeding; N94.6 Dysmenorrhea, unspecified
CPT/HCPCS: 58563; 58558; 96374; J2405

== ENCOUNTER 2022-08-08 09:39 | Emergency (ER) | payer OTHER, SELFPAY ==
[2022-08-08 09:45] VITALS: BP 128/92; PULSE 92; RESP 20; TEMP 36.9; O2SAT 97; BMI 41.3
--- NOTE | 2022-08-08 09:51 | EXP.UTC ---
Discharge Plan Disposition Patient Disposition: Home, Self-Care Condition: Good Prescriptions Prescriptions: New amoxicillin [amoxicillin] 500 mg tablet 500 mg PO TID 10 Days Qty: 30 0RF benzonatate [benzonatate] 100 mg capsule 100 mg PO TIDP PRN (Reason: Cough) Qty: 30 0RF methylprednisolone 4 mg Tablets,Dose Pack 4 mg PO DIRECTED Qty: 21 0RF guaifenesin [Mucinex] 600 mg tablet extended release 12hr 600 - 1,200 mg PO BIDP PRN (Reason: Congestion) Qty: 30 0RF No Action levothyroxine 75 mcg tablet 75 mcg PO DAILY mesalamine [Apriso] 0.375 gram capsule,extended release 24hr 1 ea PO DAILY Label Comments: TAKE 4 CAPSULES BY MOUTH ONCE DAILY Entyvio 300 mg recon soln 300 mg IV MONTHLY Rx Instructions: every 8 weeks ferrous sulfate 325 mg (65 mg iron) tablet 325 mg PO DAILY Referrals Follow up/Referrals: Manny Rodriguez MD [Primary Care Provider] - See instructions Activity Restrictions/Add. Instructions Additional Instructions/Restrictions: Drink plenty of fluids. Take tylenol or ibuprofen for pain or fever. Take the medications as directed. Follow up with your regular doctor. GO TO THE ER FOR ANY WORSENING SYMPTOMS Clinical Impressions Clinical Impression: Sinusitis Instructions Patient Instructions: DI for Sinusitis, Sinusitis [place] HPI General Stated complaint: head congestion,runny nose Time Seen by Provider: 08/08/22 09:50 History of Present Illness Provider Complaint: She states that for the past 3 days she has had worsening sinus congestion and ear pain. She denies any fever/chills/body aches. Related Data Home Medications Medication Instructions Recorded Confirmed levothyroxine 75 mcg tablet 75 mcg PO DAILY thyroid 03/02/22 08/08/22 mesalamine 0.375 gram 1 ea PO DAILY . 03/02/22 08/08/22 capsule,extended release 24 hr (Apriso) vedolizumab 300 mg intravenous 300 mg IV MONTHLY uc 03/02/22 08/08/22 solution (Entyvio) ferrous sulfate 325 mg (65 mg 325 mg PO DAILY iron 07/27/22 08/08/22 iron) tablet Previous Rx's Medication Instructions Recorded amoxicillin 500 mg tablet 500 mg PO TID 10 days #30 tabs 08/08/22 benzonatate 100 mg capsule 100 mg PO TIDP PRN Cough #30 caps 08/08/22 guaifenesin 600 mg tablet, 600 - 1,200 mg PO BIDP PRN 08/08/22 extended release 12 hr (Mucinex) Congestion #30 tabs methylprednisolone 4 mg tablets in 4 mg PO DIRECTED #21 tabs 08/08/22 a dose pack Allergies Allergy/AdvReac Type Severity Reaction Status Date / Time No Known Allergies Allergy Verified 08/08/22 10:01 [facility] Disclaimer: The information contained in this section may have been updated after the patient was seen, as this information can be updated by other users. Medical History Allergies History of COVID-19 Hypothyroid Ulcerative colitis Surgical History H/O gastric sleeve H/O tubal ligation History of Family History Other Alcoholism Anemia Cancer Coronary artery disease Diabetes Hyperlipidemia Hypertension Thyroid disorder Social History Smoking Status: Never smoker alcohol intake: current substance use type: denies use current occupational status: employed Travel in the last 8 weeks: None ROS Obtained: Yes All systems reviewed & no additional complaints except as documented Constitutional Constitutional: Reports poor appetite Eyes Eyes: Reports system reviewed and no additional complaints, except as documented ENT Ears, Nose, Mouth, and Throat: Reports as per HPI Cardiovascular Cardiovascular: Reports system reviewed and no additional complaints, except as documented and Denies chest pain Respiratory Respiratory: Denies shortness of breath
[2022-08-08 10:42] VITALS: BP 128/92; PULSE 92; RESP 20; TEMP 36.9; O2SAT 97
== END 2022-08-08 10:43 | disposition home or self-care (01) ==
PROVIDERS: Emergency Provider Nurse Practitioner Family; PCP Internal Medicine
DX: J32.9 Chronic sinusitis, unspecified (principal)
CPT/HCPCS: 99212; 99213; G0463

== ENCOUNTER → 2022-10-19 08:19 | Outpatient (CLI) | payer OTHER, SELFPAY ==
[2022-10-19 09:07] LABS: Basophils % 0.5 % (0.1-2.0); Eosinophils # 0.3 K/mm3 (0.0-0.4); Eosinophils % 3.7 % (0.1-12.0); Hematocrit 45.5 % (37.0-47.0); Hemoglobin 14.5 g/dL (12.2-16.2); Lymphocytes # 2.5 K/mm3 (0.7-4.5); Mean Corpuscular HGB Conc 31.8 g/dL (31.8-35.4); Mean Corpuscular Hemoglobin 29.8 pg (27.0-31.2); Mean Platelet Volume 7.8 fl (7.4-10.4); Monocytes # 0.4 K/mm3 (0.1-1.0); Monocytes % 5.6 % (1.7-9.3); Neutrophils # 4.4 K/mm3 (1.8-7.8); Neutrophils % 57.2 % (37.0-80.0); Platelet Count 275 K/mm3 (142-424); Red Blood Count 4.85 M/mm3 (4.20-5.40); Red Cell Distribution Width 12.9 % (11.5-17.5); White Blood Count 7.7 K/mm3 (4.8-10.8)
[2022-10-19 09:56] LABS: Chloride 108 mmol/L (98-107); Potassium 4.4 mmoL/L (3.5-5.1); Sodium 140 mmol/L (136-145)
[2022-10-19 09:59] LABS: Alanine Aminotransferase 14 U/L (12-78); Albumin/Globulin Ratio 1.4 (1.1-1.8); Alkaline Phosphatase 61 U/L (38-126); Anion Gap 11.4 mEq/L (5-15); Aspartate Amino Transferase 18 U/L (14-36); Bilirubin,Total 0.4 mg/dl (0.2-1.3); Blood Urea Nitrogen 14 mg/dl (7-17); Carbon Dioxide 25 mmol/L (22.0-30.0); Cholesterol 166 mg/dl (140-200); Estimated Glomerular Filt Rate 93 ml/min (>60); GFR (African American) 112 ML/MIN (>60); Globulin 2.8 g/dL (1.3-3.2); Total Protein,Serum 6.8 g/dl (6.3-8.2); Triglycerides 59 mg/dl (30-150); VLDL Cholesterol 12 mg/dL (0-40)
[2022-10-19 10:00] LABS: Calcium 8.7 mg/dl (8.4-10.2); Chol/HDL Ratio 3.6 (1-3.5); Glucose 82 mg/dl (74-100); HDL Cholesterol 46 mg/dl (40-60)
[2022-10-19 10:11] LABS: Direct LDL Cholesterol 110.64 mg/dL (100-129)
[2022-10-19 10:26] LABS: 25-OH Vitamin D, Total 75.4 ng/mL (30-100)
[2022-10-19 10:31] LABS: Thyroid Stimulating Hormone 2.33 uIU/mL (0.465-4.68)
[2022-10-19 11:01] LABS: Vitamin B12 704 pg/mL (239-931)
== END ==
PROVIDERS: PCP Internal Medicine; Visit Provider Internal Medicine
DX: K51.90 Ulcerative colitis, unspecified, without complications (principal); E03.9 Hypothyroidism, unspecified; E55.9 Vitamin D deficiency, unspecified; Z98.84 Bariatric surgery status
CPT/HCPCS: 36415; 80053; 80061; 82306; 82607; 84443; 85025

== ENCOUNTER 2023-08-02 13:44 | Outpatient (CLI) | payer OTHER, SELFPAY ==
--- NOTE | 2023-08-02 13:50 | MM_ITS ---
PROCEDURE INFORMATION: Exam: MG Bilateral Screening 3D Mammography Exam date and time: 08/02/2023 1:39 PM Age: 43 years old Clinical indication: Screening mammogram TECHNIQUE: Imaging protocol: Bilateral Screening tomosynthesis and 2D mammography including computer-aided detection (CAD) when performed. COMPARISON: 1. MG MM DIG SC MAMM IMPLANT BI CAD 06/01/2022 7:59 AM 2. MG [facility] MM Dig screening mamm BI w/CAD 01/10/2018 9:11 AM FINDINGS: MAMMOGRAPHY: Breast composition: There are scattered areas of fibroglandular density. Mass: Stable benign-appearing subcentimeter nodule is present in the left breast. No new or morphologically suspicious nodule has developed to suggest malignancy. Architectural distortion: No new or suspicious architectural distortion. Calcifications: No new or suspicious calcifications are present Asymmetric density: No new or suspicious asymmetric density is present Skin thickening: None. Axillary adenopathy: None. Implants: Subpectoral augmentation implants are present. IMPRESSION: No mammographic evidence of malignancy. Recommend annual screening mammography unless otherwise clinically indicated. ASSESSMENT: BI-RADS category 2: Benign
== END 2023-08-02 23:59 ==
LOC: RAD 13:45
PROVIDERS: PCP Internal Medicine; Visit Provider Internal Medicine
DX: Z12.31 Encounter for screening mammogram for malignant neoplasm of breast (principal)
CPT/HCPCS: 77063; 77067

== ENCOUNTER 2023-08-11 10:23 | Emergency (ER) | payer OTHER, SELFPAY ==
--- NOTE | 2023-08-11 10:43 | EXP.UTC ---
Discharge Plan Disposition Patient Disposition: Home, Self-Care Condition: Good Prescriptions Prescriptions: New amoxicillin [amoxicillin] 500 mg tablet 500 mg PO TID 10 Days Qty: 30 0RF ybccbvslewggqge-pjnwwvjrq-SN [Bromfed DM] 2-30-10 mg/5 mL Syrup 5 ml PO Q6H PRN (Reason: Cough) Qty: 240 0RF prednisone 10 mg tablet 10 mg PO BID 3 Days Qty: 6 0RF No Action levothyroxine 75 mcg tablet 75 mcg PO DAILY mesalamine [Apriso] 0.375 gram capsule,extended release 24hr 1 ea PO DAILY Patient Comments: TAKE 4 CAPSULES BY MOUTH ONCE DAILY Entyvio 300 mg recon soln 300 mg IV MONTHLY Rx Instructions: every 8 weeks bupropion HCl 150 mg tablet sustained-release 12 hr 150 mg PO DAILY Referrals Follow up/Referrals: Manny Rodriguez MD [Primary Care Provider] - See instructions Activity Restrictions/Add. Instructions Additional Instructions/Restrictions: Drink plenty of fluids. Take tylenol or ibuprofen for pain or fever. Take the medications as directed. Follow up with your regular doctor. GO TO THE ER FOR ANY WORSENING SYMPTOMS Clinical Impressions Clinical Impression: Pharyngitis Instructions Patient Instructions: Sore Throat, DI for Pharyngitis/Tonsillopharyngitis -- Adult Discharge ED Provider: Rishi Gomez [facility] General Stated complaint: sore throat, nasal drainage Time Seen by Provider: 08/11/23 10:43 History of Present Illness Provider Complaint: She states that for the past 2 days she has had sore throat, malaise, chills, and nausea. Related Data Home Medications Medication Instructions Recorded Confirmed levothyroxine 75 mcg tablet 75 mcg PO DAILY thyroid 03/02/22 08/11/23 mesalamine 0.375 gram 1 ea PO DAILY uc 03/02/22 08/11/23 capsule,extended release 24 hr (Apriso) vedolizumab 300 mg intravenous 300 mg IV MONTHLY uc 03/02/22 08/11/23 solution (Entyvio) bupropion HCl 150 mg tablet,12 hr 150 mg PO DAILY 08/02/23 08/11/23 sustained-release Previous Rx's Medication Instructions Recorded amoxicillin 500 mg tablet 500 mg PO TID 10 days #30 tabs 08/11/23 uaceeecpvroqkmf-laskwrrgmnfprol-PT 5 ml PO Q6H PRN Cough #240 mL 08/11/23 2 mg-30 mg-10 mg/5 mL oral syrup (Bromfed DM) prednisone 10 mg tablet 10 mg PO BID 3 days #6 tabs 08/11/23 Allergies Allergy/AdvReac Type Severity Reaction Status Date / Time No Known Allergies Allergy Verified 08/11/23 10:59 PFSH PFS Disclaimer: The information contained in this section may have been updated after the patient was seen, as this information can be updated by other users. Medical History (Updated 08/11/23 @ 11:16 by Rishi Gomez APRN) Allergies ASCUS with positive high risk HPV Family history of breast cancer Hypothyroid Routine gynecological examination Ulcerative colitis Surgical History H/O gastric sleeve H/O LEEP H/O tubal ligation History of History of endometrial ablation History of hysteroscopy Family History Other Alcoholism Anemia Cancer Coronary artery disease Diabetes Hyperlipidemia Hypertension Thyroid disorder Social History Smoking Status: Never smoker alcohol intake: current substance use type: denies use current occupational status: employed Travel in the last 8 weeks: None ROS Obtained: Yes All systems reviewed & no additional complaints except as documented Constitutional Constitutional: Reports chills and Reports fever(s) Eyes Eyes: Denies eye discharge ENT Ears, Nose, Mouth, and Throat: Reports as per HPI Cardiovascular Cardiovascular: Denies chest pain Respiratory Respiratory: Denies chest congestion and Reports cough Gastrointestinal Gastrointestingal: Reports nausea; Denies abdominal pain, constipation, cramping, diarrhea or vomiting Musculoskeletal Musculoskeletal: Denies arthralgias Integumentary/Breasts Skin/Breast: Denies rash Neurologic Neurologic: Denies paresthesias Physical Exam General General appearance: alert and in no apparent distress Head Head exam: atraumatic, normocephalic and normal inspection Eye Eye exam: Present normal appearance, PERRL and EOMI ENT ENT exam: Present mucous membranes moist and normal external ear exam Expanded ENT Exam TM/Canal exam: Bilateral TM: erythema and bulging Nose exam: Absent sinus tenderness Mouth exam: Present normal external inspection; Absent drooling Teeth exam: Present normal inspection Throat exam: Present tonsillar erythema, tonsillomegaly and tonsillar exudate Neck Neck exam: Present normal inspection, full ROM and trachea midline; Absent tenderness, meningismus or lymphadenopathy Chest Chest inspection: Present normal inspection and symmetric chest wall rise; Absent tenderness Respiratory Respiratory exam: Present normal lung sounds bilaterally; Absent respiratory distress, wheezes or stridor Cardiovascular Cardiovascular exam: Present regular rate and normal rhythm; Absent systolic murmur or diastolic murmur Abdominal Exam Abdominal exam: Present soft and normal bowel sounds; Absent distention, tenderness, guarding, rebound or rigidity Extremities Exam Extremities exam: Present normal inspection and normal capillary refill; Absent calf tenderness Back Exam Back exam: Present normal inspection and full ROM; Absent tenderness, CVA tenderness (R) or CVA tenderness (L) Neurological Exam Neurological exam: Present alert, oriented X3 and CN II-XII intact Psychiatric Psychiatric exam: Present normal affect and normal mood Skin Skin exam: Present warm, dry, intact and normal color Medical Decision Making Medical Records Medical records reviewed: No I reviewed the patient's medical records. Jose Inquiry Pt receiving controlled substance: No Lab Data Lab results reviewed: Yes I reviewed the patient's lab results.
[2023-08-11 10:45] VITALS: BP 135/87; PULSE 80; RESP 18; TEMP 36.8; O2SAT 99; BMI 39.9
[2023-08-11 11:05] LABS: UTC Strep Screen (Rapid) Negative (Negative)
[2023-08-11 11:26] VITALS: BP 135/87; PULSE 80; RESP 18; TEMP 36.8; O2SAT 97
== END 2023-08-11 11:26 | disposition home or self-care (01) ==
PROVIDERS: Emergency Provider Nurse Practitioner Family; PCP Internal Medicine
DX: J02.9 Acute pharyngitis, unspecified (principal); R09.81 Nasal congestion; R11.0 Nausea; R53.81 Other malaise; E03.9 Hypothyroidism, unspecified
CPT/HCPCS: 87880; 99212; 99214; G0463

== ENCOUNTER 2024-01-17 15:01 | Outpatient (CLI) | payer OTHER, SELFPAY ==
[2024-01-17 15:43] LABS: Basophils % 0.3 % (0.1-2.0); Eosinophils # 0.2 K/mm3 (0.0-0.4); Eosinophils % 1.2 % (0.1-12.0); Hematocrit 44.4 % (37.0-47.0); Hemoglobin 14.4 g/dL (12.2-16.2); Lymphocytes # 1.8 K/mm3 (0.7-4.5); Lymphocytes % 13.6 % (10-50); Mean Corpuscular HGB Conc 32.4 g/dL (31.8-35.4); Mean Corpuscular Hemoglobin 32.3 pg (27.0-31.2); Mean Corpuscular Volume 99.6 fl (81-99); Mean Platelet Volume 8.1 fl (7.4-10.4); Monocytes # 0.8 K/mm3 (0.1-1.0); Monocytes % 5.9 % (1.7-9.3); Neutrophils # 10.5 K/mm3 (1.8-7.8); Platelet Count 306 K/mm3 (142-424); Red Blood Count 4.45 M/mm3 (4.20-5.40); Red Cell Distribution Width 13.2 % (11.5-17.5); White Blood Count 13.3 K/mm3 (4.8-10.8)
[2024-01-17 16:15] LABS: Alanine Aminotransferase 17 U/L (12-78); Albumin Level 3.9 g/dl (3.5-5.0); Albumin/Globulin Ratio 1.4 (1.1-1.8); Alkaline Phosphatase 102 U/L (38-126); Anion Gap 7.8 mEq/L (5-15); Aspartate Amino Transferase 20 U/L (14-36); Bilirubin,Total 0.9 mg/dl (0.2-1.3); Blood Urea Nitrogen 10 mg/dl (7-17); Calcium 9.2 mg/dl (8.4-10.2); Carbon Dioxide 27 mmol/L (22.0-30.0); Chloride 108 mmol/L (98-107); Estimated Glomerular Filt Rate 79 ml/min (>60); GFR (African American) 95 ML/MIN (>60); Globulin 2.8 g/dL (1.3-3.2); Glucose 117 mg/dl (74-100); Potassium 3.8 mmoL/L (3.5-5.1); Sodium 139 mmol/L (136-145); Total Protein,Serum 6.7 g/dl (6.3-8.2)
[2024-01-17 16:51] LABS: HCG,Quantitative < 2 mIU/ml (0-5.42)
== END 2024-01-17 23:59 | disposition home or self-care (01) ==
LOC: LAB 15:02
PROVIDERS: PCP Internal Medicine; Visit Provider Obstetrics & Gynecology
DX: N90.89 Other specified noninflammatory disorders of vulva and perineum (principal)
CPT/HCPCS: 36415; 80053; 84702; 85025

== ENCOUNTER 2024-01-20 06:50 | Day surgery (SDC) | payer OTHER, SELFPAY ==
[2024-01-18 13:55] VITALS: BMI 41.1
[2024-01-20] VITALS (10 sets, daily range): BP systolic 109–128; BP diastolic 64–78; PULSE 82–105; RESP 16–20; TEMP 36.2–36.3; O2SAT 94–99
[2024-01-20] MEDS: ACETAMINOPHEN 500MG TAB 1000 MG PO (06:57)
[2024-01-20] MEDS: LACTATED RINGERS 1000ML 1,000 ML 25 ML IV (06:58)
--- NOTE | 2024-01-20 08:57 | EXP.OP.NOTE ---
Date of procedure: 01/20/24 Pre-op Diagnosis:: 1. Vulvovaginal mass, right labia Post-op Diagnosis:: 1. Vulvovaginal mass, right labia Procedure performed:: Incision and Drainage of right labia minora Surgeon:: Marine Pete DO Certified Pediatric Nurse Practitioner(s):: N/a SKIMMER SCOOP OPERATOR:: Rishi Telles Anesthesia: spinal Estimated blood loss (mL): 5 Clinical Note:: Jessica Freeman is a 44 yo P1001 who presents to [facility] for scheduled procedure. She complains of right labial/vaginal mass that has been present since September. Mass is always present but gets smaller and bigger spontaneously. It has previously been nontender. However, about a week ago it has increased and size and progressively became more painful. Operative findings:: 1. 5 x 7 cm right labia minora mass Operative note:: Risks, benefits and alternatives were discussed with the patient. Risks include but are not limited to bleeding, infection and VTE. Patient voiced understanding and agreed to proceed. She was wheeled back to the operating room and placed under MAC without difficulty. She was placed in dorsal lithotomy position and prepped and draped in the normal sterile fashion. An #11 blade scalpel was used to make a 0.5 mm incision inside right labia minora middle of mass. Copious amounts of yellow fluid drained from incision site. Cultures were taken from cyst cavity. Cavity was irrigated with normal saline. Cyst cavity was packed with 1/4 inch iodoform packing. Patient was awaken from anesthesia without difficulty. She was transported to recovery room in stable condition. Patient will be discharged home when awake and ambulating. She was given postop instructions as well as instructions to follow-up in the office in 4 days. She discharged home with prescription for Bactrim DS, 1 tab PO q 12 hours x 7 days. Condition: stable Disposition: same day Specimens:: Anaerobic and aerobic cultures Complications:: None
--- NOTE | 2024-01-20 09:25 | EXP.ANES.II ---
[facility] Anesthesia Record Part II Anesthesia Record Part II Destination: Surgical Day Care (OP Surgery) PACU nurse assessment reviewed?: Yes Patient Condition:: Good Anesthesia Complications:: None Swallowing reflex intact?: Yes Airway Patency: Patent Cyanosis?: No Mental Status: Alert & Oriented Intake, IV Amount: 0 Hydration: Adequate
--- NOTE | 2024-01-20 09:27 | EXP.ANES.CKL ---
[facility] Disclaimer: The information contained in this section may have been updated after the patient was seen, as this information can be updated by other users. Medical History UTI (urinary tract infection) Dysuria Vulvar mass Routine gynecological examination Ulcerative colitis Hypothyroid Allergies ASCUS with positive high risk HPV Family history of breast cancer Surgical History H/O LEEP History of endometrial ablation History of hysteroscopy H/O gastric sleeve History of H/O tubal ligation Family History Other Alcoholism Anemia Cancer Coronary artery disease Diabetes Hyperlipidemia Hypertension Thyroid disorder Social History (Updated 01/20/24 @ 07:00 by Mine Clarke RN) Smoking Status: Never smoker alcohol intake: current alcohol intake frequency: other substance use type: denies use current occupational status: employed Travel in the last 8 weeks: None [facility] Anesthesia Checklist Patient Identification Patient Identification: Arm Band and Family Structural Data Admitted From: Home Planned Operative Procedure/s: I and D Right labia. Consent for Planned Operative Procedure(s) Verified: Yes Verified Documents: Surgical Consent and History and Physical NPO Status Verified Time NPO: 00:00 Additional verifications Patient : No Anesthesia Reactions: No Hx Blood Transfusions: No Blood Transfusion Reaction: No Cephalosporin Allergy: No Previous Colonoscopy: No Airway Assessment Mallampati Score:: Class II C-Spine Mobility Assessed: Yes TMJ Mobility Assessed: Yes Dentition: Good Dentition Neurological Assessment Level of Consciousness: Awake, Alert, Appropriate and Follows Commands Hx Seizures: No Numbness or tingling in extremities: No Anesthesia Plan Anesthesia Risk discussed: Yes ASA Class: II Anesthesia Type: General Preoperative Comments Pre-Operative Comments: Ulcerative colitis.
--- NOTE | 2024-01-20 09:29 | EXP.ANES.I ---
[facility] Anesthesia Record Part I Anesthesia Record I Intake, IV Amount: 800 Hydration: Adequate Estimated blood loss (mL): 5 Urine output (mL): 25 Blood Products used (#): none Blood Pressure: 121/64 SaO2: 96 Pulse Rate: 91 Airway Patency: Patent Respiratory Rate: 20 Temperature: 97.3 F Patient is:: Stable Stable to PACU at:: 09:00
--- NOTE | 2024-01-20 10:04 | P.PNANES_ITS ---
[facility] Anesthesia Record Part II Anesthesia Record Part II Discharge Time: 09:30 Destination: Surgical Day Care (OP Surgery) PACU nurse assessment reviewed?: Yes Patient Condition:: Good Anesthesia Complications:: None Swallowing reflex intact?: Yes Airway Patency: Patent Cyanosis?: No Blood Pressure: 121/78 SaO2: 97 Respiratory Rate: 16 Pulse Rate: 82 Temperature: 97.4 F Mental Status: Alert & Oriented Pain level:: 0 Nausea and/or vomitting:: None Intake, IV Amount: 0 Hydration: Adequate
--- NOTE | 2024-01-20 12:06 | EXP.ANES.II ---
[facility] Anesthesia Record Part II Anesthesia Record Part II Discharge Time: 09:30 Destination: Surgical Day Care (OP Surgery) PACU nurse assessment reviewed?: Yes Patient Condition:: Good Anesthesia Complications:: None Swallowing reflex intact?: Yes Airway Patency: Patent Cyanosis?: No Blood Pressure: 121/78 SaO2: 97 Respiratory Rate: 16 Pulse Rate: 82 Temperature: 97.4 F Mental Status: Alert & Oriented Pain level:: 0 Nausea and/or vomitting:: None Intake, IV Amount: 0 Hydration: Adequate
== END 2024-01-20 10:00 | disposition home or self-care (01) ==
PROVIDERS: PCP Internal Medicine; Visit Provider Obstetrics & Gynecology
PROC: (CPT 56405; principal; 2024-01-20 08:30)
DX: D28.1 Benign neoplasm of vagina (principal)
CPT/HCPCS: 56405; 87070; 87075; 87077; 87186; 87205; J1100; J2250; J2405; J3010; J7120

== ENCOUNTER 2024-02-21 10:05 | Outpatient (CLI) | payer OTHER, SELFPAY ==
[2024-02-21 11:24] LABS: Basophils # 0.1 K/mm3 (0-0.2); Basophils % 0.5 % (0.1-2.0); Eosinophils # 0.3 K/mm3 (0.0-0.4); Eosinophils % 3.2 % (0.1-12.0); Hematocrit 47.5 % (37.0-47.0); Hemoglobin 15.4 g/dL (12.2-16.2); Lymphocytes # 2.6 K/mm3 (0.7-4.5); Lymphocytes % 27.8 % (10-50); Mean Corpuscular HGB Conc 32.5 g/dL (31.8-35.4); Mean Corpuscular Hemoglobin 32.3 pg (27.0-31.2); Mean Corpuscular Volume 99.4 fl (81-99); Mean Platelet Volume 8.1 fl (7.4-10.4); Monocytes # 0.6 K/mm3 (0.1-1.0); Neutrophils # 5.8 K/mm3 (1.8-7.8); Neutrophils % 62.5 % (37.0-80.0); Platelet Count 301 K/mm3 (142-424); Red Blood Count 4.78 M/mm3 (4.20-5.40); Red Cell Distribution Width 13.4 % (11.5-17.5); White Blood Count 9.4 K/mm3 (4.8-10.8)
[2024-02-21 12:43] LABS: Alanine Aminotransferase 14 U/L (12-78); Albumin/Globulin Ratio 1.3 (1.1-1.8); Alkaline Phosphatase 60 U/L (38-126); Anion Gap 7.6 mEq/L (5-15); Aspartate Amino Transferase 22 U/L (14-36); Bilirubin,Total 0.7 mg/dl (0.2-1.3); Blood Urea Nitrogen 14 mg/dl (7-17); Calcium 9.4 mg/dl (8.4-10.2); Carbon Dioxide 26 mmol/L (22.0-30.0); Chloride 108 mmol/L (98-107); Estimated Glomerular Filt Rate 79 ml/min (>60); GFR (African American) 95 ML/MIN (>60); Glucose 80 mg/dl (74-100); Potassium 4.6 mmoL/L (3.5-5.1); Sodium 137 mmol/L (136-145)
[2024-02-21 12:57] LABS: HCG,Quantitative < 2 mIU/ml (0-5.42)
== END 2024-02-21 23:59 | disposition home or self-care (01) ==
LOC: LAB 10:05
PROVIDERS: PCP Internal Medicine; Visit Provider Obstetrics & Gynecology
DX: N75.0 Cyst of Bartholin's gland (principal)
CPT/HCPCS: 36415; 80053; 84702; 85025

== ENCOUNTER 2024-02-25 07:44 | Day surgery (SDC) | payer OTHER, SELFPAY ==
[2024-02-23 11:35] VITALS: BMI 41.1
[2024-02-25] MEDS: LACTATED RINGERS 1000ML 1,000 ML 25 ML IV (07:52)
[2024-02-25 07:54] VITALS: BP 117/72; PULSE 76; RESP 18; TEMP 36.2; O2SAT 97
[2024-02-25] MEDS: ACETAMINOPHEN 500MG TAB 1000 MG PO (08:12)
--- NOTE | 2024-02-25 08:24 | EXP.ANES.CKL ---
[facility] Disclaimer: The information contained in this section may have been updated after the patient was seen, as this information can be updated by other users. Medical History Bartholin gland cyst left UTI (urinary tract infection) Dysuria Vulvar mass right labia minora Routine gynecological examination Ulcerative colitis Hypothyroid Allergies ASCUS with positive high risk HPV Family history of breast cancer maternal aunt Surgical History Status post incision and drainage H/O LEEP History of endometrial ablation History of hysteroscopy H/O gastric sleeve History of H/O tubal ligation Family History Other Alcoholism Anemia Cancer Coronary artery disease Diabetes Hyperlipidemia Hypertension Thyroid disorder Social History Smoking Status: Never smoker alcohol intake: current alcohol intake frequency: other substance use type: denies use current occupational status: employed Travel in the last 8 weeks: None [facility] Anesthesia Checklist Patient Identification Patient Identification: Verbal (Name & ) Structural Data Admitted From: Home Planned Operative Procedure/s: marsup bartholin cyst Consent for Planned Operative Procedure(s) Verified: Yes NPO Status Verified Time NPO: 00:00 Additional verifications Anesthesia Reactions: No Hx Blood Transfusions: No Blood Transfusion Reaction: No Airway Assessment Mallampati Score:: Class III C-Spine Mobility Assessed: Yes TMJ Mobility Assessed: Yes Dentition: Good Dentition Neurological Assessment Level of Consciousness: Awake, Alert and Appropriate Anesthesia Plan Anesthesia Risk discussed: Yes Anesthesia Plan: Verified ASA Class: II Anesthesia Type: General
[2024-02-25 09:30] VITALS: BP 110/62; PULSE 88; RESP 16; TEMP 36.6; O2SAT 93
[2024-02-25 09:40] VITALS: BP 105/65; PULSE 69; RESP 16; O2SAT 93
--- NOTE | 2024-02-25 09:40 | P.OP_ITS ---
Date of procedure: 02/25/24 Pre-op Diagnosis:: 1. Recurrent right Bartholin gland cyst Post-op Diagnosis:: 1. Recurrent right Bartholin gland cyst Procedure performed:: Bartholin Gland cyst marsupialization Surgeon:: Marine Pete DO Adjustment Examiner(s):: N/a COAL BAGGER:: Fausto Chan Anesthesia: MAC Estimated blood loss (mL): 0 Clinical Note:: Mrs Jessica Freeman is a 44 yo P1001 who presents to [facility] for scheduled procedure. She had I&D of right Bartholin gland cyst with packing 01/20/24. At that time the cyst had been presents for ~ 4 months. She presented for postop check on 02/04/24 and left Bartholin gland was noted and drained in the office. At her follow-up appointment for I&D of left Bartholin gland 02/21/24, right Bartholin gland had reoccurred. She was started on Bactrim DS on 02/21/24. Operative findings:: 1. 2.5 cm recurrent right Bartholin cyst 2. Mucus expressed from incision Operative note:: Risks, benefits and alternatives were discussed with the patient. Risks include but are not limited to bleeding, infection and VTE. Patient voiced understanding and agreed to proceed. She was wheeled back to the operating room and placed under MAC without difficulty. She was placed in dorsal lithotomy position and prepped and draped in the normal sterile fashion. A thorough bimanual exam was performed. Right labia was grasped with Allis clamp for retraction. 0.5 % marcaine was injected under incision site. An #11 blade scalpel was used to make a 1 cm incision inside right labia minora middle of Bartholin gland cyst. Copious amounts of mucus was evacuated from incision site. Cultures were taken from cyst cavity. Cavity was irrigated with normal saline. The wall of the cyst was sutured with interrupted 3-0 Vicryl suture to the skin of the introitus laterally and to the vaginal mucosa medially. Patient was awaken from anesthesia without difficulty. She was transported to recovery room in stable condition. Patient will be discharged home when awake and ambulating. She was given postop instructions as well as instructions to follow-up in the office in 2 weeks. Condition: stable Disposition: same day Specimens:: Anaerobic and Aerobic cultures Complications:: None
[2024-02-25] MEDS: BUPIVACAINE 0.5% 10ML VIAL 50 MG IJ (09:49)
[2024-02-25 09:50] VITALS: BP 103/71; PULSE 68; RESP 18; O2SAT 95
[2024-02-25 10:00] VITALS: BP 109/60; PULSE 72; RESP 16; O2SAT 95
== END 2024-02-25 10:00 | disposition home or self-care (01) ==
PROVIDERS: PCP Internal Medicine; Visit Provider Obstetrics & Gynecology
PROC: (CPT 56440; principal; 2024-02-25 09:15)
DX: N75.0 Cyst of Bartholin's gland (principal)
CPT/HCPCS: 56440; 87070; 87075; 87077; 87186; 87205; J2250; J2704; J3010; J7120

== ENCOUNTER 2024-05-16 15:01 | Outpatient (CLI) | payer OTHER, SELFPAY ==
[2024-05-16 15:34] LABS: Basophils % 0.6 % (0.1-2.0); Eosinophils # 0.2 K/mm3 (0.0-0.4); Eosinophils % 2.5 % (0.1-12.0); Hematocrit 46.4 % (37.0-47.0); Hemoglobin 15.6 g/dL (12.2-16.2); Lymphocytes # 2.2 K/mm3 (0.7-4.5); Lymphocytes % 27.7 % (10-50); Mean Corpuscular HGB Conc 33.6 g/dL (31.8-35.4); Mean Corpuscular Hemoglobin 31.4 pg (27.0-31.2); Mean Corpuscular Volume 93.5 fl (81-99); Mean Platelet Volume 7.4 fl (7.4-10.4); Monocytes # 0.5 K/mm3 (0.1-1.0); Monocytes % 5.9 % (1.7-9.3); Neutrophils % 63.4 % (37.0-80.0); Platelet Count 287 K/mm3 (142-424); Red Blood Count 4.96 M/mm3 (4.20-5.40); Red Cell Distribution Width 12.9 % (11.5-17.5); White Blood Count 7.9 K/mm3 (4.8-10.8)
[2024-05-16 16:00] LABS: Alanine Aminotransferase 15 U/L (12-78); Albumin Level 4.6 g/dl (3.5-5.0); Albumin/Globulin Ratio 1.8 (1.1-1.8); Alkaline Phosphatase 60 U/L (38-126); Anion Gap 16.9 mEq/L (5-15); Aspartate Amino Transferase 19 U/L (14-36); Bilirubin,Total 0.6 mg/dl (0.2-1.3); Blood Urea Nitrogen 13 mg/dl (7-17); Calcium 9.6 mg/dl (8.4-10.2); Carbon Dioxide 20 mmol/L (22.0-30.0); Chloride 105 mmol/L (98-107); Estimated Glomerular Filt Rate 54 ml/min (>60); GFR (African American) 66 ML/MIN (>60); Globulin 2.5 g/dL (1.3-3.2); Glucose 81 mg/dl (74-100); Potassium 4.9 mmoL/L (3.5-5.1); Sodium 137 mmol/L (136-145); Total Protein,Serum 7.1 g/dl (6.3-8.2)
[2024-05-16 16:22] LABS: HCG,Quantitative < 2 mIU/ml (0-5.42)
== END 2024-05-16 23:59 | disposition home or self-care (01) ==
LOC: LAB 15:02
PROVIDERS: PCP Internal Medicine; Visit Provider Obstetrics & Gynecology
DX: N90.89 Other specified noninflammatory disorders of vulva and perineum (principal)
CPT/HCPCS: 36415; 80053; 84702; 85025

== ENCOUNTER 2024-05-18 07:04 | Day surgery (SDC) | payer OTHER, SELFPAY ==
[2024-05-17 14:33] VITALS: BMI 40.2
[2024-05-18] VITALS (8 sets, daily range): BP systolic 87–114; BP diastolic 62–76; PULSE 63–85; RESP 16–18; TEMP 36.2–36.6; O2SAT 92–98; BMI 40.2
[2024-05-18] MEDS: 0.9 % SODIUM CHLORIDE 1000ML 1,000 ML 25 ML IV (07:32)
--- NOTE | 2024-05-18 07:54 | EXP.ANES.CKL ---
[facility] Disclaimer: The information contained in this section may have been updated after the patient was seen, as this information can be updated by other users. Medical History Swelling of vulva Bartholin gland cyst UTI (urinary tract infection) Dysuria Routine gynecological examination Ulcerative colitis Hypothyroid Allergies ASCUS with positive high risk HPV Family history of breast cancer Surgical History Status post incision and drainage H/O LEEP History of endometrial ablation History of hysteroscopy H/O gastric sleeve History of H/O tubal ligation Family History Other Alcoholism Anemia Cancer Coronary artery disease Diabetes Hyperlipidemia Hypertension Thyroid disorder Social History Smoking Status: Never smoker alcohol intake: current alcohol intake frequency: other substance use type: denies use current occupational status: employed Travel in the last 8 weeks: None [facility] Anesthesia Checklist Patient Identification Patient Identification: Arm Band, Family and Verbal (Name & ) Structural Data Admitted From: Home Planned Operative Procedure/s: I&D labial cyst w/ insertion of Word catheter Consent for Planned Operative Procedure(s) Verified: Yes Verified Documents: Surgical Consent and History and Physical NPO Status Verified Time NPO: 22:00 Chart Verification Results Verified: CBC, BMP, ECG and HCG Additional verifications Patient : No Anesthesia Reactions: No Hx Blood Transfusions: No Blood Transfusion Reaction: No Cardiovascular Assessment Heart Sounds: S1 & S2 Pulse Rhythm: Irregular Peripheral Edema: No Airway Assessment Mallampati Score:: Class II C-Spine Mobility Assessed: Yes (FROM demonstrated) TMJ Mobility Assessed: Yes Dentition: Good Dentition (Nothing loose per pt.) Neurological Assessment Level of Consciousness: Awake, Alert, Appropriate and Follows Commands Hx Seizures: No Numbness or tingling in extremities: No Anesthesia Plan Anesthesia Risk discussed: Yes Anesthesia Plan: Verified ASA Class: III Anesthesia Type: General
[2024-05-18] MEDS: BUPIVACAINE 0.5% W/EPI 1:200,000 30ML VIAL 30 ML IJ (08:51)
--- NOTE | 2024-05-18 09:10 | EXP.ANES.I ---
[facility] Anesthesia Record Part I Anesthesia Record I Intake, IV Amount: 700 Hydration: Adequate Estimated blood loss (mL): 5 Urine output (mL): 0 Blood Products used (#): none Blood Pressure: 113/76 SaO2: 95 Pulse Rate: 81 Airway Patency: Patent Respiratory Rate: 16 Temperature: 97.1 F Patient is:: Awake (Talking) and Stable Stable to PACU at:: 09:10
--- NOTE | 2024-05-18 09:38 | P.PNANES_ITS ---
[facility] Anesthesia Record Part II Anesthesia Record Part II Discharge Time: 09:25 Destination: Surgical Day Care (OP Surgery) PACU nurse assessment reviewed?: Yes Patient Condition:: Good Anesthesia Complications:: None Swallowing reflex intact?: Yes Airway Patency: Patent Cyanosis?: No Blood Pressure: 111/75 SaO2: 97 Respiratory Rate: 16 Pulse Rate: 64 Temperature: 97.1 F Mental Status: Alert & Oriented Pain level:: 0 Nausea and/or vomitting:: None Intake, IV Amount: 700 Hydration: Adequate
--- NOTE | 2024-05-18 09:59 | P.OP_ITS ---
Date of procedure: 05/18/24 Pre-op Diagnosis:: 1. Bilateral labia minora cysts Post-op Diagnosis:: 1. Bilateral labia minora cysts Procedure performed:: Incision and Drainage of bilateral labia minora cysts with insertion of Word catheter bilaterally Surgeon:: Marine Pete DO Template Cutter(s):: N/a SPECIAL EVENT ASSISTANT:: Nicole Albarran Anesthesia: GETA Estimated blood loss (mL): 2 Clinical Note:: Ms Jessica Freeman is a 44 yo P1001 who presents to [facility] for scheduled procedure. She presents with complaint of bilateral labia swelling, possible reoccurrence of Bartholin's gland cysts. She admits this feels different then previous Randy garfield's glands cysts. It is mildly tender but not really painful. She admits this has been present for about 4-6 weeks. Denies fever/chills. No vaginal discharge, itching or burning. She completed course of Bactrim without any improvement. She also tried a dose of Vistaril for possible allergic etiology without any relief. She denies any pain today just feels abnormal.. just feels like there is raghav ething there. Operative findings:: 1. Mucus filled bilateral labia minora left > right 2. History of recurrent Bartholin gland cyst and abscess with marsupialization of right Bartholin gland cyst 02/25/24 Operative note:: Risks, benefits and alternatives were discussed with the patient. Risks include but are not limited to bleeding, infection and VTE. Patient voiced understanding and agreed to proceed. She was wheeled back to the operating room and placed under general anesthesia without difficulty. She was placed in dorsal lithotomy position and prepped and draped in the normal sterile fashion. A thorough bimanual exam was performed. Right labia minora was retracted. An #11 blade scalpel was used to make a 1 cm incision inside right labia minora proximal to but outside hymenal ring. Large amount of mucus was pulled from incision site. Cultures were taken from cyst cavity. Cavity was irrigated with normal saline. Word catheter was inserted into incision. Word catheter balloon was filled with 3 cc of saline and catheter was placed inside the vagina. Same procedure was carried out on the left side. Suspect false tracts and possible blocked Bartholin gland ducts bilaterally. Patient was awaken from anesthesia without difficulty. She was transported to recovery room in stable condition. Patient will be discharged home when awake and ambulating. She was given postop instructions as well as instructions to follow-up in the office in 1 week. Condition: stable Disposition: same day Specimens:: 1. Cytology for cyst mucus 2. Anaerobic and aerobic cultures o Complications:: None
== END 2024-05-25 10:05 | disposition home or self-care (01) ==
PROVIDERS: PCP Internal Medicine; Visit Provider Obstetrics & Gynecology
PROC: (CPT 56405; principal; 2024-05-18 08:30)
DX: N90.7 Vulvar cyst (principal)
CPT/HCPCS: 56405; 87070; 87075; 87205; J1100; J1885; J2250; J2405; J3010; J7030

== ENCOUNTER 2024-05-25 17:10 | Outpatient (CLI) | payer OTHER, SELFPAY ==
[2024-05-25 17:15] LABS: Thyroid Stimulating Hormone 0.48 uIU/mL (0.465-4.68)
== END 2024-05-25 23:59 | disposition home or self-care (01) ==
LOC: LAB.DROPOF 17:11
PROVIDERS: PCP Internal Medicine; Visit Provider Internal Medicine
DX: E03.9 Hypothyroidism, unspecified (principal)
CPT/HCPCS: 36415; 84443

== ENCOUNTER 2024-08-12 15:48 | Emergency (ER) | payer OTHER, SELFPAY ==
[2024-08-12 16:15] VITALS: BP 114/79; PULSE 84; RESP 17; TEMP 36.8; O2SAT 97; BMI 35.0
--- NOTE | 2024-08-12 16:25 | EXP.UTC ---
Discharge Plan Disposition Patient Disposition: Home, Self-Care Condition: Good Prescriptions Prescriptions: New azithromycin [Zithromax Z-Everton] 250 mg tablet See Rx Instructions .ROUTE .COMPLEX 5 Days Qty: 6 0RF Rx Instructions: For 250 mg dose pack: take 500 mg today (day 1), then 250 mg for 4 days (days 2-5) No Action Entyvio 300 mg recon soln 300 mg IV MONTHLY Rx Instructions: every 8 weeks bupropion HCl 150 mg tablet sustained-release 12 hr See Rx Instructions .ROUTE .COMPLEX Qty: 180 1RF Dose Instruction: TAKE 1 TABLET BY MOUTH ONCE DAILY FOR 3 DAYS THEN 1 TWICE DAILY Rx Instructions: TAKE 1 TABLET BY MOUTH ONCE DAILY FOR 3 DAYS THEN 1 TWICE DAILY levothyroxine 75 mcg tablet See Rx Instructions .ROUTE .COMPLEX Qty: 90 1RF Dose Instruction: TAKE 1 TABLET BY MOUTH ONCE DAILY FOR THYROID Rx Instructions: TAKE 1 TABLET BY MOUTH ONCE DAILY FOR THYROID Referrals Follow up/Referrals: Manny Rodriguez MD [Primary Care Provider] - See instructions Activity Restrictions/Add. Instructions Additional Instructions/Restrictions: *Monitor Temp, Over the counter Motrin or Tylenol as directed/as needed Tylenol every 4 hours and Motrin every 6 hours (as long as your family doctor has told you that you can take it) for fever or pain. and straight to ER if unable to lower temp less than 101.0 after medication given *Warm salt water gargles may help to soothe the throat *Throat Lozenges? *Warm fluids like tea with honey may help to soothe the throat? *Sleep elevated *Humidifier/Vaporizer Follow up IMMEDIATELY for new or worsening symptoms or no Noticeable improvement over the next 48-72 hours. 911 for difficulty breathing or swallowing Clinical Impressions Clinical Impression: Sinusitis Qualifiers: Sinusitis location: unspecified location Chronicity: unspecified Qualified Code(s): J32.9 - Chronic sinusitis, unspecified Instructions Patient Instructions: Sinusitis, DI for Sinusitis Print Language Print Language: Grenadian Discharge ED Provider: Rachel Cespedes [facility] General Stated complaint: ARNOLD,head congestion Mode of Arrival: Ambulatory Source of Information: Patient Limitations: No Limitations Time Seen by Provider: 08/12/24 16:25 Description of Symptoms (Recalled from Triage Doc. by RN): PATIENT C/O SINUS PRESSURE AND DRAINAGE, SORE THROAT AND HEADACHE X 2 DAYS HEENT Symptoms (Recalled from RN notes): Yes Resp Symptoms (Recalled from RN notes): No Skin Symptoms (Recalled from RN notes): No MS Symptoms (Recalled from RN notes): No Functional Status (Recalled from RN notes): WNL History of Present Illness Provider Complaint: Patient states that she has been having sinus pain and pressure and sinus congestion for several days now and worse today so she came in to get it checked Related Data Home Medications ?Medication ?Instructions ?Recorded ?Confirmed vedolizumab 300 mg intravenous 300 mg IV MONTHLY uc 03/02/22 08/12/24 solution (Entyvio) Previous Rx's ?Medication ?Instructions ?Recorded bupropion HCl 150 mg tablet,12 hr See Rx Instructions .Route 07/13/24 sustained-release .COMPLEX #180 tabs levothyroxine 75 mcg tablet See Rx Instructions .Route 07/13/24 .COMPLEX #90 tabs azithromycin 250 mg tablet See Rx Instructions PO .COMPLEX 5 08/12/24 (Zithromax Z-Everton) days #6 tabs Allergies Allergy/AdvReac Type Severity Reaction Status Date / Time No Known Allergies Allergy Verified 07/31/24 15:31 Worker's Comp Is this a Worker's Comp case?: No [facility] Disclaimer: The information contained in this section may have been updated after the patient was seen, as this information can be updated by other users. Medical History (Updated 08/12/24 @ 16:33 by Rachel Cespedes APRN) Swelling of vulva Bartholin gland cyst UTI (urinary tract infection) Dysuria Routine gynecological examination Ulcerative colitis Hypothyroid Allergies ASCUS with positive high risk HPV Family history of breast cancer Surgical History Status post incision and drainage H/O LEEP History of endometrial ablation History of hysteroscopy H/O gastric sleeve History of H/O tubal ligation Family History Other Alcoholism Anemia Cancer Coronary artery disease Diabetes Hyperlipidemia Hypertension Thyroid disorder Social History Smoking Status: Never smoker alcohol intake: current alcohol intake frequency: other substance use type: denies use current occupational status: employed Travel in the last 8 weeks: None Have you lived/traveled outside US in past 30 days?: No Contact w/someone who lives/traveled outside US past 30 days?: No Exposure to someone with infectious disease in past 14 days?: No Do you have a fever (greater than 100.4 F or 38 C)?: No Have you tested positive for COVID-19: No Exposed to someone with COVID-19 in past 14 days?: No Do you have a sore throat?: No Do you have a cough?: Yes Do you have any weakness?: No Do you have any diarrhea?: No Are you experiencing any unusual bleeding?: No Do you have any muscle aches/pain?: No Do you have any abdominal pain?: No Are you experiencing loss of taste or smell?: No ROS Obtained: Yes All systems reviewed & no additional complaints except as documented and Yes Systems reviewed as appropriate & no additional complaints except as documented Constitutional Constitutional: Reports system reviewed and no additional complaints, except as documented and Reports as per HPI ENT Ears, Nose, Mouth, and Throat: Reports system reviewed and no additional complaints, except as documented, Reports as per HPI, Reports sinus pain and Reports sinus pressure Cardiovascular Cardiovascular: Reports system reviewed and no additional complaints, except as documented and Reports as per HPI Respiratory Respiratory: Reports system reviewed and no additional complaints, except as documented and Reports as per HPI Gastrointestinal Gastrointestingal: Reports system reviewed and no additional complaints, except as documented and as per HPI Physical Exam General General appearance: alert and in no apparent distress ENT ENT exam: Present mucous membranes moist Expanded ENT Exam Nose exam: Present sinus tenderness Throat exam: Present other (PND noted) Respiratory Respiratory exam: Present normal lung sounds bilaterally; Absent respiratory distress or wheezes Cardiovascular Cardiovascular exam: Present regular rate, normal rhythm and normal heart sounds Neurological Exam Neurological exam: Present alert, oriented X3 and normal gait Medical Decision Making Medical Records Screening: Per USPSTF and CDC recommendations, given the prevalence of disease in our region, it is our hospital?s policy to screen for HIV and viral Hepatitis for all patients aged 18 and over and those with ongoing risk factors. Jose Inquiry Pt receiving controlled substance: No Jose was queried for this patient: No Vital Signs: 08/12/24 16:15 Temperature 98.2 F Temperature Source Oral Pulse Rate [Left Brachial] 84 Respiratory Rate 17 Blood Pressure [Left Arm] 114/79 Blood Pressure Mean [Left Arm] 90 Blood Pressure Source [Left Arm] Automatic Cuff Blood Pressure Position [Left Arm] Sitting 02 Sat by Pulse Oximetry 97 Oxygen Delivery Method Room Air Medical Decision Narrative: Patient states that she has taken azithromycin and SoluMedrol since her bariatric surgery without complications or reaction
[2024-08-12] MEDS: METHYLPREDNISOLONE SOD SUCC 125MG VIAL 125 MG IM (16:37)
[2024-08-12 16:43] VITALS: BP 114/79; PULSE 84; RESP 17; TEMP 36.8; O2SAT 97
== END 2024-08-12 16:46 | disposition home or self-care (01) ==
PROVIDERS: Emergency Provider Nurse Practitioner; PCP Internal Medicine
DX: J32.9 Chronic sinusitis, unspecified (principal)
CPT/HCPCS: 96372; 99213; G0381; J2919

== ENCOUNTER 2024-09-04 15:00 | Outpatient (CLI) | payer OTHER, SELFPAY ==
[2024-09-04 17:48] LABS: Basophils % 0.5 % (0.1-2.0); Eosinophils # 0.2 K/mm3 (0.0-0.4); Eosinophils % 2.6 % (0.1-12.0); Hematocrit 44.4 % (37.0-47.0); Hemoglobin 14.9 g/dL (12.2-16.2); Lymphocytes # 2.1 K/mm3 (0.7-4.5); Lymphocytes % 24.1 % (10-50); Mean Corpuscular HGB Conc 33.6 g/dL (31.8-35.4); Mean Corpuscular Hemoglobin 31.7 pg (27.0-31.2); Mean Corpuscular Volume 94.5 fl (81-99); Mean Platelet Volume 10.1 fl (7.4-10.4); Monocytes # 0.7 K/mm3 (0.1-1.0); Monocytes % 7.9 % (1.7-9.3); Neutrophils # 5.5 K/mm3 (1.8-7.8); Neutrophils % 64.5 % (37.0-80.0); Platelet Count 315 K/mm3 (142-424); Red Cell Distribution Width 12.4 % (11.5-17.5); White Blood Count 8.5 K/mm3 (4.8-10.8)
[2024-09-04 18:05] LABS: Anion Gap 9.5 mEq/L (5-15); Blood Urea Nitrogen 12 mg/dl (7-17); Calcium 9.5 mg/dl (8.4-10.2); Carbon Dioxide 25 mmol/L (22.0-30.0); Chloride 106 mmol/L (98-107); Estimated Glomerular Filt Rate 92 ml/min (>60); GFR (African American) 111 ML/MIN (>60); Glucose 73 mg/dl (74-100); Potassium 4.5 mmoL/L (3.5-5.1); Sodium 136 mmol/L (136-145)
== END 2024-09-04 23:59 | disposition home or self-care (01) ==
LOC: LAB.DROPOF 09-05 16:33
PROVIDERS: PCP Internal Medicine; Visit Provider Internal Medicine
DX: Z01.818 Encounter for other preprocedural examination (principal); N90.89 Other specified noninflammatory disorders of vulva and perineum
CPT/HCPCS: 80048; 85025

== ENCOUNTER 2025-03-12 15:33 | Emergency (ER) | payer OTHER, SELFPAY ==
[2025-03-12 15:38] VITALS: BP 122/70; PULSE 87; RESP 18; TEMP 37; O2SAT 100; BMI 37.5
--- NOTE | 2025-03-12 15:49 | XR_ITS ---
PROCEDURE INFORMATION: Exam: XR Right Ankle Exam date and time: 03/12/2025 3:52 PM Age: 45 years old Clinical indication: Injury or trauma; Fall; Blunt trauma; Ankle; Right; Additional info: Lateral pain after fall TECHNIQUE: Imaging protocol: Radiologic exam of the right ankle. Views: 3 or more views. COMPARISON: No relevant prior studies available. FINDINGS: Bones/joints: Minimally displaced spiral oblique fracture of the distal fibula consistent with minimally displaced fracture.. Soft tissues: Soft tissue swelling of the ankle IMPRESSION: Minimally displaced spiral oblique fracture of the distal fibula consistent with minimally displaced fracture..
--- NOTE | 2025-03-12 15:49 | XR_ITS ---
PROCEDURE INFORMATION: Exam: XR Left Ankle Exam date and time: 03/12/2025 3:52 PM Age: 45 years old Clinical indication: Injury or trauma; Fall; Blunt trauma; Ankle; Left; Additional info: Lateral pain after fall TECHNIQUE: Imaging protocol: Radiologic exam of the left ankle. Views: 3 or more views. COMPARISON: No relevant prior studies available. FINDINGS: Bones/joints: There is no evidence of acute fracture.There is no evidence of malalignment or dislocation. Soft tissues: Normal. IMPRESSION: There is no evidence of acute fracture.There is no evidence of malalignment or dislocation.
--- OUTSIDE RECORDS SUMMARY | 2025-03-12 15:51 | XMS_ITS | Clinical Summary ---
Author Organization [facility] Address [address] [place] [address] Phone Care Team Providers Care Field Services Manager Name Role Phone Unavailable Primary Care Provider Unavailabl e Allergies No known active allergies Medications LEVOthyroxine (SYNTHROID) 75 mcg Oral Tablet Take 75 mcg by mouth daily. Active buPROPion (WELLBUTRIN) 100 mg Oral Tablet Take 100 mg by mouth 2 times daily. Active vedolizumab (ENTYVIO IV) Inject 1 Dose into the vein Every 8 weeks. Active oxyCODONE (ROXICODONE) 5 mg Oral Tablet Take 1 Tablet by mouth every 4 hours as needed for Major Surgery/Trauma (G89.18). 5 Tablet 5 Active Additional Information Patient not taking.Reason: Therapy Completed, Reported on 10/18/2024 docusate sodium (COLACE) 100 mg Oral Capsule Take 1 Capsule by mouth daily. 30 Capsule 5 Active Additional Information Patient not taking.Reason: Therapy Completed, Reported on 10/18/2024 ibuprofen (ADVIL;MOTRIN) 800 mg Oral Tablet Take 800 mg by mouth as needed. Active Active Problems Problem Noted Date Diagnosed Date Bartholin gland cyst 09/01/2024 Surgical History Surgery Date Site/Laterality Comments TUBAL LIGATION SECTION x1 BREAST SURGERY breast implants BARTHOLIN GLAND CYST EXCISION x3 COLONOSCOPY BARIATRIC SURGERY ?2018 BARTHOLIN GLAND CYST EXCISION 09/06/2024 N/A Excision of Bartholin Gland Cyst, CYSTOSCOPY; Surgeon: Sheryl Alfaro MD; Location: [facility] MAIN OR; Service: Gynecology CYSTOSCOPY 09/06/2024 Urethra/N/A Surgeon: Sheryl Alfaro MD; Location: [facility]; Service: Gynecology Medical History Medical History Date Comments Thyroid disease Depression Irritable bowel syndrome Ulcerative colitis (HCC) CD (Crohn's disease) (HCC) Family History Medical History Relation Name Comments Anesth Problems Neg Hx Social History Tobacco Use Types Packs/Day Years Used Date Smoking Tobacco: Never Passive Smoke Exposure: Never Smokeless Tobacco: Never Tobacco Cessation:Counseling Given: Not Answered Alcohol Use Standard Drinks/Week Comments Not Currently 0 (1 standard drink = 0.6 oz pur e alcohol) socially Comments No Sex and Gender Information Value Date Recorded Sex Assigned at Not on file Legal Sex Female 9:50 AM EST Gender Identity Not on file Sexual Orientation Not on file Obstetrics History Last Filed Vital Signs Vital Sign Reading Time Taken Comments Blood Pressure 105/69 09/06/2024 3:39 PM EST Pulse 74 10/18/2024 9:21 AM EDT Temperature 36.2 C (97.2 F) 09/06/2024 3:39 PM EST Respiratory Rate 16 09/06/2024 3:39 PM EST Oxygen Saturation 100% 09/06/2024 3:39 PM EST Inhaled Oxygen Concentration - - Weight 97.3 kg (214 lb 9.6 oz) 10/18/2024 9:21 A M EDT Height 160 cm (5' 3 ) 10/18/2024 9:21 AM EDT Body Mass Index 38.01 10/18/2024 9:21 AM EDT Plan of Treatment Health Maintenance Due Date Last Done Comments Annual Wellness Exam 1985 Hepatitis B Vaccine (1 of 3 - 19+ 3-dose series) 2001 Pneumococcal Vaccine 0-49 (1 of 2 - PCV) 2001 Cervical Cancer Screening 2003 Pap Smear 2003 HPV/Pap Cotest 01/09/2012 DTaP/TDaP/Td (1 - Tdap) 10/03/2019 10/02/2019 COVID-19 Vaccine (3 - Pfizer risk series) 05/26/2021 04/28/2021, 03/31/2021 Breast Cancer Screening 2022 Influenza Vaccine (#1) 2025 05/08/2011 Meningococcal B Vaccine Aged Out No l onger eligible based on patient's age to complete this topic Medical Devices Implanted Type Area Monomer Purification Operator Device Identifier Shelf Expiration Date Model / Serial / Lot Breast Implants Insurance [id number] [id number]
--- NOTE | 2025-03-12 15:56 | XR_ITS ---
PROCEDURE INFORMATION: Exam: XR Right Tibia and Fibula Exam date and time: 03/12/2025 3:58 PM Age: 45 years old Clinical indication: Injury or trauma; Fall; Blunt trauma; Lower leg; Right TECHNIQUE: Imaging protocol: Radiologic exam of the right tibia and fibula. Views: 2 views. COMPARISON: CR XR ANKLE RT MIN 3V 03/12/2025 3:52 PM FINDINGS: Bones/joints: And spiral oblique fracture in the distal fibula is essentially nondisplaced.. Soft tissues: Soft tissue swelling of the ankle IMPRESSION: And spiral oblique fracture in the distal fibula is essentially nondisplaced..
[2025-03-12] MEDS: HYDROCODONE/APAP 5/325 MG TABLET 1 TAB PO (16:08)
--- NOTE | 2025-03-12 17:24 | HMH.EDGENADL ---
Discharge Plan Disposition Patient Disposition: Home, Self-Care Condition: Good Prescriptions Prescriptions: New hydrocodone-acetaminophen 5-325 mg tablet 1 tab PO Q8H PRN (Reason: pain (scale score 7-10)) Qty: 9 0RF Rx Instructions: Please take only after 650 mg of Tylenol and 800 mg of ibuprofen have not made your pain level acceptable No Action Entyvio 300 mg recon soln 300 mg IV MONTHLY Rx Instructions: every 8 weeks bupropion HCl 150 mg tablet sustained-release 12 hr See Rx Instructions .ROUTE .COMPLEX Qty: 180 1RF Dose Instruction: TAKE 1 TABLET BY MOUTH ONCE DAILY FOR 3 DAYS THEN 1 TWICE DAILY Rx Instructions: TAKE 1 TABLET BY MOUTH ONCE DAILY FOR 3 DAYS THEN 1 TWICE DAILY Wegovy 0.25 mg/0.5 mL pen injector 0.25 mg SQ WEEKLY Qty: 2 0RF levothyroxine 75 mcg tablet See Rx Instructions .ROUTE .COMPLEX Qty: 90 1RF Dose Instruction: TAKE 1 TABLET BY MOUTH ONCE DAILY FOR THYROID Rx Instructions: TAKE 1 TABLET BY MOUTH ONCE DAILY FOR THYROID Referrals Follow up/Referrals: Manny Rodriguez MD [Primary Care Provider, Medical] - See instructions Je Heredia DO [Staff Physician, Orthopedics] - See instructions Activity Restrictions/Add. Instructions Additional Instructions/Restrictions: You were seen for an ankle fracture. Return to the ER if your pain worsens, or you have discoloration of the foot. Please follow up with Dr. Heredia this week. Clinical Impressions Clinical Impression: Ankle fracture Instructions Patient Instructions: Ankle Fracture Print Language Print Language: Kittitian Discharge ED Provider: Chad Mars General Adult HPI <CHARBEL Hernandez - Last Filed: 03/12/25 17:32> General Chief complaint: PAIN Stated complaint: AO 03/12/25 1500 injury bilateral ankles Time Seen by Provider: 03/12/25 15:37 Mode of Arrival: Ambulatory Source of Information: Patient Description of Symptoms (Recalled from ER Triage Doc. by RN): Pt presents with c/o bilateral ankle pain. Pt states she fell off her porch. Denies LOC, BT History of Present Illness HPI narrative: Patient presents with bilateral ankle pain. She was carrying a basket of laundry and fell off of her porch which is approximately 2 to 2-1/2 feet from the ground. Denies any head injury or loss of consciousness. Tetanus is up-to-date. She has bilateral ankle pain and swelling with limited range of motion. Pain on the right is greater than the left. She has not had any medication prior to arrival. MD complaint: Ankle pain Onset (ago): minute(s) Location: left, right and lower extremity Radiation: extremity Severity: moderate Consistency: constant Relieving factors: rest Exacerbating factors: movement Associated symptoms: denies other symptoms Treatments prior to arrival: none Related Data Home Medications ?Medication ?Instructions ?Recorded ?Confirmed vedolizumab 300 mg intravenous 300 mg IV MONTHLY uc 03/02/22 09/04/24 solution (Entyvio) Previous Rx's ?Medication ?Instructions ?Recorded bupropion HCl 150 mg tablet,12 hr See Rx Instructions .Route 07/13/24 sustained-release .COMPLEX #180 tabs semaglutide (weight loss) 0.25 0.25 mg (0.5 mL) SQ WEEKLY #2 mL 09/29/24 mg/0.5 mL subcutaneous pen injector (Wegovy) levothyroxine 75 mcg tablet See Rx Instructions .Route 02/09/25 .COMPLEX #90 tabs hydrocodone 5 mg-acetaminophen 325 1 tab PO Q8H PRN pain (scale score 03/12/25 mg tablet 7-10) #9 tabs Allergies Allergy/AdvReac Type Severity Reaction Status Date / Time No Known Allergies Allergy Verified 09/04/24 14:22 [facility] <CHARBEL Hernandez - Last Filed: 03/12/25 17:32> [facility] Disclaimer: The information contained in this section may have been updated after the patient was seen, as this information can be updated by other users. Medical History Swelling of vulva Bartholin gland cyst recurrent UTI (urinary tract infection) Dysuria Routine gynecological examination Ulcerative colitis Hypothyroid Allergies ASCUS with positive high risk HPV Family history of breast cancer maternal aunt Surgical History Status post incision and drainage H/O LEEP History of endometrial ablation History of hysteroscopy H/O gastric sleeve History of H/O tubal ligation Family History Other Alcoholism Anemia Cancer Coronary artery disease Diabetes Hyperlipidemia Hypertension Thyroid disorder Social History Smoking Status: Never smoker alcohol intake: current alcohol intake frequency: other substance use type: denies use current occupational status: employed Travel in the last 8 weeks?: None Have you lived/traveled outside US in past 30 days?: No Contact w/someone who lives/traveled outside US past 30 days?: No Exposure to someone with infectious disease in past 14 days?: No Do you have a fever (greater than 100.4 F or 38 C)?: No Have you tested positive for COVID-19?: No Exposed to someone with COVID-19 in past 14 days?: No Do you have a sore throat?: No Do you have a cough?: No Do you have any weakness?: No Do you have any diarrhea?: No Are you experiencing any unusual bleeding?: No Do you have any muscle aches/pain?: No Do you have any abdominal pain?: No Are you experiencing loss of taste or smell?: No Other Medical History Have you received the Flu Vaccine for this season: No Have you received the Pneumonia Vaccine: No <CHARBEL Hernandez - Last Filed: 03/12/25 17:32> ROS Obtained: Yes Systems reviewed as appropriate & no additional complaints except as documented Physical Exam <CHARBEL Hernandez - Last Filed: 03/12/25 17:32> General General appearance: alert and in no apparent distress Head Head exam: atraumatic and normocephalic Eye Eye exam: Present normal appearance and EOMI Chest Chest inspection: Present symmetric chest wall rise Respiratory Respiratory exam: Present normal lung sounds bilaterally; Absent wheezes or stridor Cardiovascular Cardiovascular exam: Present regular rate and normal rhythm; Absent systolic murmur Extremities Exam Extremities exam: Present full ROM Expanded Lower Extremity Exam Left: Ankle exam: Present tenderness (Lateral) and other (Stable, neurovascularly intact); Absent swelling, abrasion or laceration Right: Ankle exam: Present tenderness, swelling, deformity (Lateral) and other (Limited plantar and dorsiflexion of the right foot, neurovascularly intact, stable) Neurological Exam Neurological exam: Present alert and oriented X3 Psychiatric Psychiatric exam: Present normal affect and normal mood Skin Skin exam: Present warm, dry and intact Medical Decision Making <CHARBEL Hernandez Last Filed: 03/12/25 17:32> Medical Records Screening: Per USPSTF and CDC recommendations, given the prevalence of disease in our region, it is our hospital?s policy to screen for HIV and viral Hepatitis for all patients aged 18 and over and those with ongoing risk factors. Jose Inquiry Pt receiving controlled substance: No Vital Signs: 03/12/25 15:38 Temperature 98.6 F Temperature Source Temporal Artery Scan Pulse Rate [Right] 87 Respiratory Rate 18 Blood Pressure [Right Arm] 122/70 Blood Pressure Mean [Right Arm] 87 Blood Pressure Source [Right Arm] Automatic Cuff Blood Pressure Position [Right Arm] Sitting 02 Sat by Pulse Oximetry 100 Orders (Tests/Meds): ED MEDICATIONS Discontinued Medications Generic Name Dose Route Start Last Admin Trade Name Freq PRN Reason Stop Dose Admin Hydrocodone Bitart/Acetaminophen 1 tab 03/12/25 15:49 03/12/25 16:08 Hydrocodone/Apap 5/325 Mg Tablet PO 03/12/25 15:50 1 tab ONCE ONE Administration ORDERS Category Date Time Status Ankle XR - Left minimum 3 Views [XR ankle LT min 3V] Exams 03/12/25 15:49 Completed Stat Ankle XR -Right minimum 3 Views [XR ankle RT min 3V] Exams 03/12/25 15:49 Completed Stat Tibia/fibula XR right 2 views [XR tibia fibula RT 2V] Exams 03/12/25 15:56 Completed Stat Medical Decision Narrative: In summary patient is a 45-year-old who presents the emergency department for evaluation of ankle pain. Patient is hemodynamically stable upon arrival, afebrile. Tenderness, swelling, deformity to the right lateral ankle. Differential diagnosis includes fracture, sprain, contusion. Initial workup will be conducted with x-ray of the bilateral ankle. Initial inventions include Wanette for pain. Initial workup reviewed by mi x-ray reveals right spiral fibula fracture. Upon repeat evaluation patient acceptable resolution of symptoms. Discussed with Dr. Heredia who advised a posterior splint and follow-up outpatient. Given this patient is discharged home at this time with a prescription for pain medication. Given return precautions and follow-up instructions. She is agreeable with plan. I personally reviewed the ankle xrays which reveal right fibula fracture. <Chad Mars MD - Last Filed: 03/12/25 17:48> Vital Signs: 03/12/25 15:38 Temperature 98.6 F Temperature Source Temporal Artery Scan Pulse Rate [Right] 87 Respiratory Rate 18 Blood Pressure [Right Arm] 122/70 Blood Pressure Mean [Right Arm] 87 Blood Pressure Source [Right Arm] Automatic Cuff Blood Pressure Position [Right Arm] Sitting 02 Sat by Pulse Oximetry 100 Orders (Tests/Meds): ED MEDICATIONS Discontinued Medications Generic Name Dose Route Start Last Admin Trade Name Freq PRN Reason Stop Dose Admin Hydrocodone Bitart/Acetaminophen 1 tab 03/12/25 15:49 03/12/25 16:08 Hydrocodone/Apap 5/325 Mg Tablet PO 03/12/25 15:50 1 tab ONCE ONE Administration ORDERS Category Date Time Status Ankle XR - Left minimum 3 Views [XR ankle LT min 3V] Exams 03/12/25 15:49 Completed Stat Ankle XR -Right minimum 3 Views [XR ankle RT min 3V] Exams 03/12/25 15:49 Completed Stat Tibia/fibula XR right 2 views [XR tibia fibula RT 2V] Exams 03/12/25 15:56 Completed Stat Medical Decision Narrative: In summary patient is a 45-year-old who presents the emergency department for evaluation of ankle pain. Patient is hemodynamically stable upon arrival, afebrile. Tenderness, swelling, deformity to the right lateral ankle. Differential diagnosis includes fracture, sprain, contusion. Initial workup will be conducted with x-ray of the bilateral ankle. Initial inventions include Wanette for pain. Initial workup reviewed by me x-ray reveals right spiral fibula fracture. Upon repeat evaluation patient acceptable resolution of symptoms. Discussed with Dr. Heredia who advised a posterior splint and follow-up outpatient. Given this patient is discharged home at this time with a prescription for pain medication. Given return precautions and follow-up instructions. She is agreeable with plan. I personally reviewed the ankle xrays which reveal right fibula fracture. I was consulted by the STELLA, and we discussed the complexity of the problems being addressed. I approved the treatment and management plan for this patient's care in the emergency department, thus performing a substantive portion of the medical decision making. Chad Mars MD Procedures <CHARBEL Hernandez - Last Filed: 03/12/25 17:32> Orthopedic Splinting/Casting Injury #1: Side: right Lower Extremity Injury Location: ankle Lower Extremity Immobilizer: posterior splint and applied by nurse/dr tello Other Orthopedic Equipment: crutches Post Cast/Splinting Neuro Status: intact Post Cast/Splinting Vasc Status: intact Critical Care <CHARBEL Hernandez - Last Filed: 03/12/25 17:32> Critical Care Time Critical Care Time: No
[2025-03-12 18:13] VITALS: BP 118/76; PULSE 80; RESP 16; TEMP 37; O2SAT 100
== END 2025-03-12 18:14 | disposition home or self-care (01) ==
PROVIDERS: Emergency Provider Emergency Medicine; PCP Internal Medicine
DX: S82.441A Displaced spiral fracture of shaft of right fibula, initial encounter for closed fracture (principal); M25.571 Pain in right ankle and joints of right foot; M25.572 Pain in left ankle and joints of left foot; W17.89XA Other fall from one level to another, initial encounter
CPT/HCPCS: 29515; 73590; 73610; 99282; 99284

== ENCOUNTER 2025-03-16 12:32 | Outpatient (CLI) | payer OTHER, SELFPAY ==
[2025-03-16 08:20] VITALS: BMI 37.5
--- OUTSIDE RECORDS SUMMARY | 2025-03-16 12:34 | XMS_ITS | Clinical Summary ---
Author Organization [facility] Address [address] [place] [address] Phone Care Team Providers Care Underwriter Name Role Phone Unavailable Primary Care Provider [...] this topic Medical Devices Implanted Type Area Career Center Director Device Identifier Shelf Expiration Date Model / Serial / Lot Breast Implants Insurance [facility] [address] [facility] [address]
--- NOTE | 2025-03-16 12:57 | ECG_ITS ---
APPROVED REPORT Exam: Resting ECG HR:76 bpm ECG Measurements Heart Rate 76 AXES MO 146 P 35 QRSd 83 QRS 40 QT 364 T 38 QTc 394 Conclusion SINUS RHYTHM LOW QRS VOLTAGE IN PRECORDIAL LEADS [QRS DEFLECTION < 1.0 mV IN CHEST LEADS] BORDERLINE ECG UNCONFIRMED REPORT Electronically signed by : Pepe Rodriguez MD 03/19/2025 14:34:06
[2025-03-16 13:16] LABS: Hematocrit 41.6 % (37.0-47.0); Hemoglobin 14.4 g/dL (12.2-16.2); Immature Granulocytes % 0.3 %; Mean Corpuscular HGB Conc 34.6 g/dL (31.8-35.4); Mean Corpuscular Hemoglobin 32.7 pg (27.0-31.2); Mean Corpuscular Volume 94.3 fl (81-99); Nucleated Red Blood Cells % 0 %; Platelet Count 294 K/mm3 (142-424); Red Blood Count 4.41 M/mm3 (4.20-5.40); Red Cell Distribution Width-SD 42.2 fL; White Blood Count 8.7 K/mm3 (4.8-10.8)
[2025-03-16 13:24] LABS: Anion Gap 12.9 mEq/L (5-15); Blood Urea Nitrogen 13 mg/dl (7-17); Calcium 9.0 mg/dl (8.4-10.2); Carbon Dioxide 22 mmol/L (22.0-30.0); Chloride 109 mmol/L (98-107); Creatinine Clearance Estimated 138 mL/min (50-200); Creatinine,Serum 0.80 mg/dl (0.52-1.04); Estimated Glomerular Filt Rate 78 ml/min (>60); GFR (African American) 95 ML/MIN (>60); Glucose 80 mg/dl (74-100); Potassium 3.9 mmoL/L (3.5-5.1); Sodium 140 mmol/L (136-145)
[2025-03-16 13:49] LABS: HCG Qualitative, Serum Negative (Negative)
== END 2025-03-16 23:59 | disposition home or self-care (01) ==
LOC: PREOP 12:33
PROVIDERS: Nurse Anesthetist, Certified Registered; PCP Internal Medicine; Visit Provider Orthopaedic Surgery
DX: Z01.810 Encounter for preprocedural cardiovascular examination (principal); Z01.812 Encounter for preprocedural laboratory examination; R94.31 Abnormal electrocardiogram [ECG] [EKG]
CPT/HCPCS: 80048; 84703; 85025; 93005

== ENCOUNTER 2025-03-21 09:04 | Day surgery (SDC) | payer OTHER, SELFPAY ==
[2025-03-16 13:42] VITALS: BMI 37.5
[2025-03-21] VITALS (9 sets, daily range): BP systolic 96–132; BP diastolic 61–72; PULSE 60–90; RESP 12–18; TEMP 36.1–37; O2SAT 93–98
[2025-03-21] MEDS: LACTATED RINGERS 1000ML 1,000 ML 100 ML IV (09:39)
--- NOTE | 2025-03-21 09:55 | EXP.ANES.CKL ---
[facility] Disclaimer: The information contained in this section may have been updated after the patient was seen, as this information can be updated by other users. Medical History Swelling of vulva Bartholin gland cyst UTI (urinary tract infection) Dysuria Routine gynecological examination Ulcerative colitis Hypothyroid Allergies ASCUS with positive high risk HPV Family history of breast cancer Surgical History History of breast implant Status post incision and drainage H/O LEEP History of endometrial ablation History of hysteroscopy H/O gastric sleeve History of H/O tubal ligation Family History Other Alcoholism Anemia Cancer Coronary artery disease Diabetes Hyperlipidemia Hypertension Thyroid disorder Social History Smoking Status: Never smoker alcohol intake: never substance use type: denies use current occupational status: employed Travel in the last 8 weeks?: Inside the [place] Have you lived/traveled outside US in past 30 days?: No Contact w/someone who lives/traveled outside US past 30 days?: No Exposure to someone with infectious disease in past 14 days?: No Do you have a fever (greater than 100.4 F or 38 C)?: No Have you tested positive for COVID-19?: No Exposed to someone with COVID-19 in past 14 days?: No Do you have a sore throat?: No Do you have a cough?: No Do you have any weakness?: No Do you have any diarrhea?: No Are you experiencing any unusual bleeding?: No Do you have any muscle aches/pain?: No Do you have any abdominal pain?: No Are you experiencing loss of taste or smell?: No [facility] Anesthesia Checklist Patient Identification Patient Identification: Arm Band and Verbal (Name & ) Structural Data Admitted From: Home Planned Operative Procedure/s: Right ankle ORIF Consent for Planned Operative Procedure(s) Verified: Yes Verified Documents: Surgical Consent NPO Status Verified Time NPO: 00:00 Chart Verification Results Verified: ECG and HCG Additional verifications Anesthesia Reactions: No Hx Blood Transfusions: No Blood Transfusion Reaction: No Airway Assessment Mallampati Score:: Class II C-Spine Mobility Assessed: No TMJ Mobility Assessed: No Dentition: Good Dentition Neurological Assessment Level of Consciousness: Alert and Appropriate Hx Seizures: No Numbness or tingling in extremities: No Anesthesia Plan Anesthesia Risk discussed: Yes Anesthesia Plan: Verified ASA Class: II Anesthesia Type: General w/block
--- NOTE | 2025-03-21 13:16 | P.OP_ITS ---
Date of procedure: 03/21/25 Pre-op Diagnosis:: Right ankle lateral malleolus fracture Post-op Diagnosis:: Same Procedure performed:: Open reduction internal fixation right lateral malleolus fracture Surgeon:: Je Heredia DO Associate Software Developer(s):: Drake [place] [employer] DIRECTOR:: Ijeoma Regan Anesthesia: GETA and regional Estimated blood loss (mL): 0 Operative findings:: See dictation Operative note:: 45-year-old female suffered a fall and twist to the right ankle and a lateral malleolus fracture indicated for surgical intervention presented today for such Patient is identified preoperatively right ankle marked with yes my initials transferred operative suite after undergoing a peripheral block with anesthesia placed upon the brain bed general anesthesia ministered airway secured right lower extremity prepped and draped in normal sterile fashion. Once prepped and draped final operative timeout performed to identify proper patient procedure and extremity. Everyone involved in the case agreed. No contraindications to beginning. Did receive preoperative antibiotics. Marking pen was used to brant planned incision over the lateral malleolus Esmarch was used to exsanguinate extremity pneumatic tourniquet inflated to 300 mmHg. Skin knife was used to incise through skin and careful dissection is taken down the fracture site muscle incarceration into the fracture site was removed irrigation at the fracture site there was comminution and a short oblique fracture this help limit nearly with a [id number] clamp. The comminution at the fracture site did not allow for lag screw placement. Synthes distal fibula plate set was utilized and plate was selected placed on the bone anatomic reduction was held with [id number] clamps. Plate was placed distally with locking screws and cortical screws proximally. 2 additional locking screws placed in the shaft. This gave good reduction of the fracture pictures taken AP and lateral views saved. Irrigation wound performed. Deep layers closed with 0 Vicryl subcutaneous 2-0 Vicryl 3-0 nylon the skin. Sterile dressing placed padded posterior splint placed patient waken anesthesia taken recovery stable condition. Condition: stable Disposition: PACU Complications:: None apparent
--- NOTE | 2025-03-21 13:18 | EXP.ANES.I ---
[facility] Anesthesia Record Part I Anesthesia Record I Intake, IV Amount: 1,500 Hydration: Adequate Estimated blood loss (mL): 0 Urine output (mL): 0 Blood Pressure: 99/62 SaO2: 96 Pulse Rate: 90 Airway Patency: Patent Respiratory Rate: 12 Temperature: 97 F Patient is:: Awake and Stable Stable to PACU at:: 13:15
[2025-03-21] MEDS: KETOROLAC 30MG/ML VIAL 30 MG IV (13:29)
[2025-03-21] MEDS: MORPHINE 2MG/ML SYRINGE 2 MG IV (13:30)
[2025-03-21] MEDS: MEPERIDINE 25MG/ML 1ML SYRINGE 25 MG IV (13:37)
--- NOTE | 2025-03-21 13:54 | XR_ITS ---
FINAL REPORT CLINICAL HISTORY: ORIF RT Ankle - fracture - Fluoro Time: 0:25min - mGy 0.86 COMPARISON: None FINDINGS: FLUOROSCOPY LESS THAN 1 HOUR HISTORY: ORIF distal fibular fracture FINDINGS: Fluoroscopic guidance was provided for ORIF of a distal fibular fracture. 2 spot films were obtained. 25 minutes of fluoroscopy time were used with a dosage of 0.86 mGy. IMPRESSION: As above. Reviewed, Interpreted and Dictated by Gabriela Capellan MD Transcribed by Bella Tidwell Authenticated and [facility]
--- NOTE | 2025-03-22 07:12 | EXP.ANES.II ---
[facility] Anesthesia Record Part II Anesthesia Record Part II Discharge Time: 13:45 Destination: [facility] PACU nurse assessment reviewed?: Yes Patient Condition:: Good Anesthesia Complications:: None Swallowing reflex intact?: Yes Airway Patency: Patent Cyanosis?: No Blood Pressure: 96/64 SaO2: 96 Respiratory Rate: 18 Pulse Rate: 73 Temperature: 97.3 F Mental Status: Alert & Oriented Pain level:: 0 Nausea and/or vomitting:: None Intake, IV Amount: 1,500 Hydration: Adequate
[2025-03-22 07:14] VITALS: BP 96/64; PULSE 73; RESP 18; TEMP 36.3; O2SAT 96
== END 2025-03-21 14:20 | disposition home or self-care (01) ==
PROVIDERS: PCP Internal Medicine; Visit Provider Orthopaedic Surgery
PROC: (CPT 27792; principal; 2025-03-21 10:30)
DX: S82.61XA Displaced fracture of lateral malleolus of right fibula, initial encounter for closed fracture (principal); W19.XXXA Unspecified fall, initial encounter; E03.9 Hypothyroidism, unspecified; Z79.890 Hormone replacement therapy; Z79.899 Other long term (current) drug therapy
CPT/HCPCS: 27792; 73600; 76000; 96374; C1713; J0690; J1100; J1200; J1885; J2003; J2175; J2250; J2270; J2405; J2704; J3010; J7120

== ENCOUNTER 2025-04-05 09:48 | Outpatient (CLI) | payer OTHER, SELFPAY ==
--- NOTE | 2025-04-05 09:48 | XR_ITS ---
FINAL REPORT CLINICAL HISTORY: Right Ankle Pain F/U FRACTURE SURGERY X 2 WEEKS AGO COMPARISON: 03/12/2025 FINDINGS: RIGHT ANKLE Three views were obtained. Plaster cast obscures detail. There has been interval ORIF of a lateral malleolus fracture. The hardware is intact. The alignment is near anatomic. No immediate complication is identified. There is soft tissue edema. IMPRESSION: Interval ORIF of a lateral malleolus fracture. Reviewed, Interpreted and Dictated by Gabriela Capellan MD Transcribed by Kandice Barrow Authenticated and [facility]
--- OUTSIDE RECORDS SUMMARY | 2025-04-05 09:53 | XMS_ITS | Clinical Summary ---
Author Organization [facility] Address [address] [place] [address] Phone Care Team Providers Care Core Oven Tender Name Role Phone Unavailable Primary Care Provider [...] this topic Medical Devices Implanted Type Area Buggy Operator Device Identifier Shelf Expiration Date Model / Serial / Lot Breast Implants Insurance [facility] [id number] [facility] [id number]
== END 2025-04-05 23:59 | disposition home or self-care (01) ==
LOC: RAD 09:48
PROVIDERS: PCP Internal Medicine; Visit Provider Orthopaedic Surgery
DX: S82.61XD Displaced fracture of lateral malleolus of right fibula, subsequent encounter for closed fracture with routine healing (principal); X58.XXXD Exposure to other specified factors, subsequent encounter
CPT/HCPCS: 73610

== ENCOUNTER 2025-04-26 10:28 | Outpatient (CLI) | payer OTHER, SELFPAY ==
--- NOTE | 2025-04-26 10:32 | XR_ITS ---
FINAL REPORT TECHNIQUE: 3 views right ankle CLINICAL HISTORY: right ankle fx COMPARISON: 04/05/2025 FINDINGS: AP, oblique, and lateral views of the right ankle were obtained. There is no acute fracture or dislocation. There is hardware affixing a fracture of the distal fibula, also seen on the prior exam of 04/05/2025 and stable in appearance. No hardware complications are noted. There is a subchondral lucency in the lateral talar dome, that may represent an osteochondral lesion. Soft tissues are unremarkable. IMPRESSION: Postoperative changes from internal fixation of a lateral malleolar fracture, with no hardware complications identified. Subchondral lucency in the lateral talar dome, likely an osteochondral lesion. Reviewed, Interpreted and Dictated by Gabriela Capellan MD Transcribed by Bella Tidwell Authenticated and . [facility]
--- OUTSIDE RECORDS SUMMARY | 2025-04-26 10:42 | XMS_ITS | Clinical Summary ---
Author Organization [facility] Address [address] [place] [address] Phone Care Team Providers Care Manager Bridge Name Role Phone Unavailable Primary Care Provider [...] on file Sexual Orientation Not on file Last Filed Vital Signs Vital Sign Reading [...] this topic Medical Devices Implanted Type Area Physician Assistant Device Identifier Shelf Expiration Date Model / Serial / Lot Breast Implants Insurance [facility] [address] [facility] [id number]
--- OUTSIDE RECORDS SUMMARY | 2025-04-26 10:42 | XMS_ITS | Data Portability ---
Author Organization [place] - [facility] - [place] [facility] ADMIN Address [address] [place] [address] Care Team Providers Care Liability Claims Manager Name Role Phone DENISE WOODS Primary Care Provider [phone] Assessment Encounter Date Assessment Date Assessment LastModified by Organization Details LastModified Time 01/25/2023 01/25/2023 43 yo female with: 1. Ulcerative colitis UC was initially diagnosed 20 years ago (2001). Prior treatment with azathioprine and sulfasalazine which she previously discontinued. She is now on Entyvio therapy and Apriso. Repeat colonoscopy 02/16/22 showed good control with some minimal active disease in the descending colon and rectum. Remains asymptomatic currently. 2. H/O Constipation: Currently not an issue. 3. History of colon polyps: Inflammatory. 4. Abdominal pain, diarrhea and hematochezia: Resolved. 5. Prophy: Continue vitamin D and calcium supplements. Recheck labs as below. Plan for surveilance colonoscopy with biopsies every 2 years. This will be due 02/2024. Previously discussed routine pap smear, yearly flu vaccination, and up to date Tdap. [email or web address] Not available 01/25/2023 16:54:09 09/13/2023 09/13/2023 43-year-old female with: 1. Ulcerative colitis UC was initially diagnosed 20 years ago (2001). Prior treatment with azathioprine and sulfasalazine which she previously discontinued. She is now on Entyvio therapy and Apriso. Repeat colonoscopy 02/16/22 showed good control with some minimal active disease in the descending colon and rectum. Remains asymptomatic currently. 2. H/O Constipation: Currently not an issue. 3. History of colon polyps: Inflammatory. 4. Abdominal pain, diarrhea and hematochezia: Resolved. 5. Prophy: Continue vitamin D and calcium supplements. Recheck labs as below. Plan for surveilance colonoscopy with biopsies every 2 years. This will be due 02/2024. Previously discussed routine pap smear, yearly flu vaccination, and up to date Tdap. 6 month f/u [email or web address] Not available 09/13/2023 10:43:23 03/20/2024 03/20/2024 44-year-old female with: 1. Ulcerative colitis UC was initially diagnosed 20 years ago (2001). Prior treatment with azathioprine and sulfasalazine which she previously discontinued. She is now on Entyvio therapy and Apriso. She has been forgetting her Apriso anf has not had any symptoms of a flare. Repeat colonoscopy 02/16/22 showed good control with some minimal active disease in the descending colon and rectum. Remains asymptomatic currently. - Plan to continue Entyvio infusions but hold apriso for now as she 2. H/O Constipation: Intermittent issues. Dietary changes. 3. History of colon polyps: Inflammatory 4. Prophy: Continue vitamin D and calcium supplements. Plan for surveilance colonoscopy with biopsies every 2 years. (Due 02/2024, Schedule today). Previously discussed routine pap smear, yearly flu vaccination, and up to date Tdap. 6 month f/u Not available 03/20/2024 10:53:34 09/11/2024 09/11/2024 44-year-old female with: 1. Ulcerative colitis UC was initially diagnosed 20 years ago (2001). Prior treatment with azathioprine and sulfasalazine which she previously discontinued. She is now on Entyvio therapy and Apriso. She has been forgetting her Apriso and has not had any symptoms of a flare. Repeat colonoscopy 02/16/22 showed good control with some minimal active disease in the descending colon and rectum. Remains asymptomatic currently. - Asymptomatic on Entyvio infusions only 2. H/O Constipation: Intermittent issues. Dietary changes. 3. History of colon polyps: Inflammatory 4. Prophy: Continue vitamin D and calcium supplements. Plan for surveilance colonoscopy with biopsies every 2 years. (Due 02/2024, Schedule today). Previously discussed routine pap smear, yearly flu vaccination, and up to date Tdap. - due for labs today (CMP, CBC, Vitamin D, CRP, Sed rate but had them [facility] (request labs results) Not available 09/11/2024 13:59:33 11/20/2024 11/20/2024 44-year-old female with: Not available 11/19/2024 23:23:19 Plan of Treatment Reminders Order Date Submit Date Provider Last Modified By Organization Details Last Modified Time Details Appointments None recorded. Lab CMP, serum or plasma 2023 024 [facility] (Registration ), [address], [place], [address], 4 18:10:59 CBC w/ auto diff 2023 024 [facility] (Registration ), [address], [place], [address], 4 16:21:34 vitamin D, 25-hydroxy, total, serum [address] (Registration ), [address], [place], [address], 4 13:49:55 CMP, serum or plasma [address] (Registration ), [address], [place], [address], 3 08:49:06 CBC w/ auto diff [address] (Registration ), [address], [place], [address], 3 08:49:06 vitamin D, 25-hydroxy, total, serum [address] (Registration ), [address], [place], [address], 3 08:49:06 Referral None recorded. Procedures None recorded. Surgeries None recorded. Imaging None recorded. Medication Orders esomeprazol e magnesium 40 mg capsule,del ayed release 2024 025 [email or web address], [address], [address], 5 14:03:00 Apriso 0.375 gram capsule,ext ended release 2022 023 [email or web address] [facility], [address] [place], [address], 5 13:36:22 Patient TargetsNo targets recorded. Patient Instructions Encounter Date Encounter Id Patient Instructions Last Modified By Organization Details Last Modified Time 01/25/2023 [id number] DATE OF OPERATIO N: 02/16/2022 SURGEON: Abdifatah Malik MD PROCEDURE: Colonoscopy. INDICATION FOR PROCEDURE: The patient is a very pleasant 42-year-old female with a history of ulcerative colitis diagnosed approximately 20 years ago. She currently is doing well on therapy with Entyvio. Surveillance colonoscopy is planned for today. ASA SCORE: II. ANESTHESIA: MAC anesthesia provided by the anesthesia department. DESCRIPTION OF OPERATION: After informed consent, the patient was positioned in the left lateral decubitus position. A digital rectal exam was performed and was normal. A pediatric colonoscope was advanced from the anus to the terminal ileum without difficulty. The patient's toleration of scope passage was excellent. The quality of preparation was excellent. Views were excellent. The scope was withdrawn. The mucosa was carefully examined. The terminal ileum appeared normal. Mild loss of vascular markings was noted throughout the descending colon and rectum. Biopsies were taken circumferentially throughout the ascending, transverse, descending colon, and rectum. A single inflammatory appearing polyp was noted within the rectum. This was resected using cold snare polypectomy. A single hemostasis clip was placed to prevent postpolypectomy bleeding. Retroflexion was performed in the rectum and was normal. COMPLICATIONS: None. BLOOD LOSS: Minimal. CONCLUSION: Overall, very little identifiable inflammation. This was confined mostly to the descending colon and rectum. Inflammatory appearing polyp within the rectum resected. Circumferential biopsies performed as outlined above. RECOMMENDATIONS: The patient is recommended to undergo a repeat surveillance colonoscopy in 2 years. [email or web address] Not available 01/25/2023 16:52:24 09/13/2023 [id number] DATE OF OPERATIO N: 02/16/2022 SURGEON: Abdifatah Malik MD PROCEDURE: Colonoscopy. INDICATION FOR PROCEDURE: The patient is a very pleasant 42-year-old female with a history of ulcerative colitis diagnosed approximately 20 years ago. She currently is doing well on therapy with Entyvio. Surveillance colonoscopy is planned for today. ASA SCORE: II. ANESTHESIA: MAC anesthesia provided by the anesthesia department. DESCRIPTION OF OPERATION: After informed consent, the patient was positioned in the left lateral decubitus position. A digital rectal exam was performed and was normal. A pediatric colonoscope was advanced from the anus to the terminal ileum without difficulty. The patient's toleration of scope passage was excellent. The quality of preparation was excellent. Views were excellent. The scope was withdrawn. The mucosa was carefully examined. The terminal ileum appeared normal. Mild loss of vascular markings was noted throughout the descending colon and rectum. Biopsies were taken circumferentially throughout the ascending, transverse, descending colon, and rectum. A single inflammatory appearing polyp was noted within the rectum. This was resected using cold snare polypectomy. A single hemostasis clip was placed to prevent postpolypectomy bleeding. Retroflexion was performed in the rectum and was normal. COMPLICATIONS: None. BLOOD LOSS: Minimal. CONCLUSION: Overall, very little identifiable inflammation. This was confined mostly to the descending colon and rectum. Inflammatory appearing polyp within the rectum resected. Circumferential biopsies performed as outlined above. RECOMMENDATIONS: The patient is recommended to undergo a repeat surveillance colonoscopy in 2 years. [email or web address] Not available 08/01/2023 17:34:34 11/20/2024 [id number] f/u 1 month Not available 06/2025 18:14:43 Reason for Referral None Reported. Results Created Date Observation Date Name Description Value Unit Range Abnormal Flag Note LastModifiedBy Organization Detail LastModifiedTime 03/29/2003/29/2023 CBC AUTO W DIFF WBC 7.2 K/uL 4.0-10 .5 Not Available [facility] ([facility]) [address], [place], [address], 03/29/2023 12:40:36 03/29/2003/29/2023 CBC AUTO W DIFF RBC 4.4 M/mm3 4.2-6. 4 Not Available [facility] ([facility]) [address], [place], [address], 03/29/2023 12:40:36 03/29/20 23 03/29/2023 CBC AUTO W DIFF HGB 13.8 gm/dL 12.5-1 6.0 Not Available [facility] ([facility]) [address], [place], [address], 03/29/2023 12:40:36 03/29/20 23 03/29/2023 CBC AUTO W DIFF HCT 41.4 % 37.0-4 7.0 Not Available [facility] ([facility]) [address], [place], [address], 03/29/2023 12:40:36 03/29/20 23 03/29/2023 CBC AUTO W DIFF MCV 94.3 fL 78-100 Not Available [facility] ([facility]) [address], [place], [address], 03/29/2023 12:40:36 03/29/20 23 03/29/2023 CBC AUTO W DIFF MCH 31.4 pg 27-31 high Not Available [facility] ([facility]) [address], [place], [address], 03/29/2023 12:40:36 03/29/20 23 03/29/2023 CBC AUTO W DIFF MCHC 33.3 g/dL 32-36 Not Available [facility] ([facility]) [address] , [place], [address], 03/29/2023 12:40:36 03/29/20 23 03/29/2023 CBC AUTO W DIFF RDW 12.1 % 11.5-1 4.0 Not Available [facility] ([facility]) [address] , [place], [address], 03/29/2023 12:40:36 03/29/20 23 03/29/2023 CBC AUTO W DIFF platelet count 283 K/uL 150-45 0 Not Available [facility] ([facility]) [address] , [place], [address], 03/29/2023 12:40:36 03/29/20 23 03/29/2023 CBC AUTO W DIFF MPV 9.7 fL 6-9.5 high Not Available [facility] ([facility]) [address] , [place], [address], 03/29/2023 12:40:36 03/29/20 23 03/29/2023 CBC AUTO W DIFF neutrophil% 61.4 % 43-65 Not Available [facility] ([facility]) [address], [place], [address], 03/29/2023 12:40:36 03/29/20 23 03/29/2023 CBC AUTO W DIFF lymphocyte% 25.0 % 20.5-4 5.5 Not Available [facility] ([facility]) [address], [place], [address], 03/29/2023 12:40:36 03/29/20 23 03/29/2023 CBC AUTO W DIFF monocyte% 8.5 % 5.5-11 .7 Not Available [facility] ([facility]) [address], [place], [address], 03/29/2023 12:40:36 03/29/20 23 03/29/2023 CBC AUTO W DIFF eosinophil% 4.6 % 0.9-2. 9 high Not Available [facility] ([facility]) [address] [place], [address], 03/29/2023 12:40:36 03/29/20 23 03/29/2023 CBC AUTO W DIFF basophil% 0.4 % 0.2-1. 0 Not Available [facility] ([facility]) [address] [place], [address], 03/29/2023 12:40:36 03/29/20 23 03/29/2023 CBC AUTO W DIFF immature granulocytes % 0.1 % 0.0-0. 8 Not Available [facility] ([facility]) [address], [place], [address], 03/29/2023 12:40:36 03/29/20 23 03/29/2023 CBC AUTO W DIFF nucleated red blood cells % 0.0 % Not Available [facility] ([facility]) [address] [facility], [place], [address], 03/29/2023 12:40:36 03/29/20 23 03/29/2023 CBC AUTO W DIFF neutrophil# 4.4 K/uL 2.2-4. 8 Not Available [facility] ([facility]) [address] [facility], [place], [address], 03/29/2023 12:40:36 03/29/20 23 03/29/2023 CBC AUTO W DIFF lymphocyte# 1.8 cell/ mcL 1.3-2. 9 Not Available [facility] ([facility]) [address] [facility], [place], [address], 03/29/2023 12:40:36 03/29/20 23 03/29/2023 CBC AUTO W DIFF monocyte# 0.6 cell/ mcL 0.3-0. 8 Not Available [facility] ([facility]) [address] [facility], [place], [address], 03/29/2023 12:40:36 03/29/20 23 03/29/2023 CBC AUTO W DIFF eosinophil# 0.3 cell/ mcL 0-0.2 high Not Available [facility] ([facility]) [address], [place], [address], 03/29/2023 12:40:36 03/29/20 23 03/29/2023 CBC AUTO W DIFF basophil# 0.0 cell/ mcL 0.0-1. 0 Not Available [facility] ([facility]) [address], [place], [address], 03/29/2023 12:40:36 03/29/20 23 03/29/2023 CBC AUTO W DIFF immature gramulocytes # 0.01 K/uL Not Available [facility] ([facility]) [address], [place], [address], 03/29/2023 12:40:36 03/29/20 23 03/29/2023 CBC AUTO W DIFF nucleated red blood cells # 0.00 K/uL Not Available [facility] ([facility]) [address] , [place], [address], 03/29/2023 12:40:36 03/29/20 23 03/29/2023 CBC AUTO W DIFF manual differential NO Not Available [facility] ([facility]) [address] , [place], [address], 03/29/2023 12:40:36 03/29/20 23 03/29/2023 COMP METAB OLIC PANEL sodium 140 mmol/ L 136-14 5 Not Available [facility] ([facility]) [address], [place], [address], 03/29/2023 13:15:09 03/29/20 23 03/29/2023 COMP METAB OLIC PANEL potassium 4.0 mmol/ L 3.6-5. 0 Not Available [facility] ([facility]) [address] , [place], [address], 03/29/2023 13:15:09 03/29/20 23 03/29/2023 COMP METAB OLIC PANEL chloride 107 mmol/ L 98-107 Not Available [facility] ([facility]) [address] , [place], [address], 03/29/2023 13:15:09 03/29/20 23 03/29/2023 COMP METAB OLIC PANEL carbon dioxide 26.2 mmol/ L 21.0-3 2.0 Not Available [facility] ([facility]) [address] , [place], [address], 03/29/2023 13:15:09 03/29/20 23 03/29/2023 COMP METAB OLIC PANEL anion gap 10.8 Not Available [facility] ([facility]) [address], [place], [address], 03/29/2023 13:15:03/29/20 23 03/29/2023 COMP METAB OLIC PANEL glucose 82 mg/dL 70-120 Not Available [facility] ([facility]) [address] , [place], [address], 03/29/2023 13:15:09 03/29/20 23 03/29/2023 COMP METAB OLIC PANEL BUN 11 mg/dL 7-18 Not Available [facility] ([facility]) [address] , [place], [address], 03/29/2023 13:15:09 03/29/20 23 03/29/2023 COMP METAB OLIC PANEL creatinine 0.9 mg/dL 0.6-1. 3 Not Available [facility] ([facility]) [address] , [place], [address], 03/29/2023 13:15:09 03/29/20 23 03/29/2023 COMP METAB OLIC PANEL glomerular filtration rate >60 mlper min 60- Not Available [facility] ([facility]) [address] , [place], [address], 03/29/2023 13:15:09 03/29/20 23 03/29/2023 COMP METAB OLIC PANEL total protein 6.9 g/dL 6.4-8. 2 Not Available [facility] ([facility]) [address] , [place], [address], 03/29/2023 13:15:09 03/29/20 23 03/29/2023 COMP METAB OLIC PANEL albumin 3.6 g/dL 3.4-5. 0 Not Available [facility] ([facility]) [address], [place], [address], 03/29/2023 13:15:09 03/29/20 23 03/29/2023 COMP METAB OLIC PANEL globulin 3.3 Not Available [facility] ([facility]) [address] , [place], [address], 03/29/2023 13:15:09 03/29/20 23 03/29/2023 COMP METAB OLIC PANEL alb/glob ratio 1.1 0.7-2 Not Available [facility] ([facility]) [address], [place], [address], 03/29/2023 13:15:09 03/29/20 23 03/29/2023 COMP METAB OLIC PANEL calcium 8.6 mg/dL 8.5-10 .5 Not Available [facility] ([facility]) [address] , [place], [address], 03/29/2023 13:15:09 03/29/20 23 03/29/2023 COMP METAB OLIC PANEL bilirubin total 0.40 mg/dL 0.10-1 .00 Not Available [facility] ([facility]) [address] [place], [address], 03/29/2023 13:15:09 03/29/20 23 03/29/2023 COMP METAB OLIC PANEL AST (SGOT) 11 U/L 0-37 Not Available [facility] ([facility]) [address] , [place], [address], 03/29/2023 13:15:09 03/29/20 23 03/29/2023 COMP METAB OLIC PANEL ALT (SGPT) 18 U/L 0-65 Not Available [facility] ([facility]) [address], [place], [address], 03/29/2023 13:15:09 03/29/20 23 03/29/2023 COMP METAB OLIC PANEL alk phosphatase 73 U/L 46-116 Not Available [facility] ([facility]) [address], [place], [address], 03/29/2023 13:15:09 03/29/20 23 03/29/2023 VITAM IN D, 25-HY DROXY vitamin D, 25-hydroxy 58.8 NG/mL 30.0-1 00.0 Not Available [facility] ([facility]) [address], [place], [address], 03/29/2023 22:22:07 09/20/19 24 09/20/2023 CBC AUTO W DIFF WBC 9.0 K/uL 4.0-10 .5 Not Available [facility] ([facility]) [address] , [place], [address], 09/20/2023 16:21:34 09/20/19 24 09/20/2023 CBC AUTO W DIFF RBC 4.4 M/mm3 4.2-6. 4 Not Available [facility] ([facility]) [address] [place], [address], 09/20/2023 16:21:34 09/20/19 24 09/20/2023 CBC AUTO W DIFF HGB 13.6 gm/dL 12.5-1 6.0 Not Available [facility] ([facility]) [address] [place], [address], 09/20/2023 16:21:34 09/20/19 24 09/20/2023 CBC AUTO W DIFF HCT 40.7 % 37.0-4 7.0 Not Available [facility] ([facility]) [address] , [place], [address], 09/20/2023 16:21:34 09/20/19 24 09/20/2023 CBC AUTO W DIFF MCV 92.9 fL 78-100 Not Available [facility] ([facility]) [address] , [place], [address], 09/20/2023 16:21:34 09/20/19 24 09/20/2023 CBC AUTO W DIFF MCH 31.1 pg 27-31 high Not Available [facility] ([facility]) [address] [place], [address], 09/20/2023 16:21:34 09/20/19 24 09/20/2023 CBC AUTO W DIFF MCHC 33.4 g/dL 32-36 Not Available [facility] ([facility]) [address], [place], [address], 09/20/2023 16:21:34 09/20/19 24 09/20/2023 CBC AUTO W DIFF RDW 12.6 % 11.5-1 4.0 Not Available [facility] ([facility]) [address] , [place], [address], 09/20/2023 16:21:34 09/20/19 24 09/20/2023 CBC AUTO W DIFF platelet count 246 K/uL 150-45 0 Not Available [facility] ([facility]) [address] , [place], [address], 09/20/2023 16:21:34 09/20/19 24 09/20/2023 CBC AUTO W DIFF MPV 9.8 fL 6-9.5 high Not Available [facility] ([facility]) [address], [place], [address], 09/20/2023 16:21:34 09/20/19 24 09/20/2023 CBC AUTO W DIFF neutrophil% 65.2 % 43-65 high Not Available [facility] ([facility]) [address], [place], [address], 09/20/2023 16:21:34 09/20/19 24 09/20/2023 CBC AUTO W DIFF lymphocyte% 25.0 % 20.5-4 5.5 Not Available [facility] ([facility]) [address], [place], [address], 09/20/2023 16:21:34 09/20/19 24 09/20/2023 CBC AUTO W DIFF monocyte% 6.8 % 5.5-11 .7 Not Available [facility] ([facility]) [address] [facility], [place], [address], 09/20/2023 16:21:34 09/20/19 24 09/20/2023 CBC AUTO W DIFF eosinophil% 2.3 % 0.9-2. 9 Not Available [facility] ([facility]) [address], [place], [address], 09/20/2023 16:21:34 09/20/19 24 09/20/2023 CBC AUTO W DIFF basophil% 0.4 % 0.2-1. 0 Not Available [facility] ([facility]) [address], [place], [address], 09/20/2023 16:21:34 09/20/19 24 09/20/2023 CBC AUTO W DIFF immature granulocytes % 0.3 % 0.0-0. 8 Not Available [facility] ([facility]) [address], [place], [address], 09/20/2023 16:21:34 09/20/19 24 09/20/2023 CBC AUTO W DIFF nucleated red blood cells % 0.0 % Not Available [facility] ([facility]) [address], [place], [address], 09/20/2023 16:21:34 09/20/19 24 09/20/2023 CBC AUTO W DIFF neutrophil# 5.8 K/uL 2.2-4. 8 high Not Available [facility] ([facility]) [address], [place], [address], 09/20/2023 16:21:34 09/20/19 24 09/20/2023 CBC AUTO W DIFF lymphocyte# 2.2 cell/ mcL 1.3-2. 9 Not Available [facility] ([facility]) [address], [place], [address], 09/20/2023 16:21:34 09/20/19 24 09/20/2023 CBC AUTO W DIFF monocyte# 0.6 cell/ mcL 0.3-0. 8 Not Available [facility] ([facility]) [address], [place], [address], 09/20/2023 16:21:34 09/20/19 24 09/20/2023 CBC AUTO W DIFF eosinophil# 0.2 cell/ mcL 0-0.2 Not Available [facility] ([facility]) [address] [facility], [place], [address], 09/20/2023 16:21:34 09/20/19 24 09/20/2023 CBC AUTO W DIFF basophil# 0.0 cell/ mcL 0.0-1. 0 Not Available [facility] ([facility]) [address] [facility], [place], [address], 09/20/2023 16:21:34 09/20/19 24 09/20/2023 CBC AUTO W DIFF immature gramulocytes # 0.03 K/uL Not Available [facility] ([facility]) [address] [place], [address], 09/20/2023 16:21:34 09/20/19 24 09/20/2023 CBC AUTO W DIFF nucleated red blood cells # 0.00 K/uL Not Available [facility] ([facility]) [address] [place], [address], 09/20/2023 16:21:34 09/20/19 24 09/20/2023 CBC AUTO W DIFF manual differential NO Not Available [facility] ([facility]) [address], [place], [address], 09/20/2023 16:21:34 09/20/19 24 09/20/2023 COMP METAB OLIC PANEL sodium 136 mmol/ L 136-14 5 Not Available [facility] ([facility]) [address] [place], [address], 09/20/2023 18:10:59 09/20/19 24 09/20/2023 COMP METAB OLIC PANEL potassium 3.5 mmol/ L 3.6-5. 0 low Not Available [facility] ([facility]) [address] [place], [address], 09/20/2023 18:10:59 09/20/19 24 09/20/2023 COMP METAB OLIC PANEL chloride 103 mmol/ L 98-107 Not Available [facility] ([facility]) [address] [place], [address], 09/20/2023 18:10:59 09/20/19 24 09/20/2023 COMP METAB OLIC PANEL carbon dioxide 21.4 mmol/ L 21.0-3 2.0 Not Available [facility] ([facility]) [address] [place], [address], 09/20/2023 18:10:59 09/20/19 24 09/20/2023 COMP METAB OLIC PANEL anion gap 15.1 Not Available [facility] ([facility]) [address] [place], [address], 09/20/2023 18:10:59 09/20/19 24 09/20/2023 COMP METAB OLIC PANEL glucose 100 mg/dL 70-120 Not Available [facility] ([facility]) [address], [place], [address], 09/20/2023 18:10:59 09/20/19 24 09/20/2023 COMP METAB OLIC PANEL BUN 13 mg/dL 7-18 Not Available [facility] ([facility]) [address], [place], [address], 09/20/2023 18:10:59 09/20/19 24 09/20/2023 COMP METAB OLIC PANEL creatinine 1.0 mg/dL 0.6-1. 3 Not Available [facility] ([facility]) [address], [place], [address], 09/20/2023 18:10:59 09/20/19 24 09/20/2023 COMP METAB OLIC PANEL glomerular filtration rate >60 mlper min 60- Not Available [facility] ([facility]) [address], [place], [address], 09/20/2023 18:10:59 09/20/19 24 09/20/2023 COMP METAB OLIC PANEL total protein 6.3 g/dL 6.4-8. 2 low Not Available [facility] ([facility]) [address], [place], [address], 09/20/2023 18:10:59 09/20/19 24 09/20/2023 COMP METAB OLIC PANEL albumin 3.3 g/dL 3.4-5. 0 low Not Available [facility] ([facility]) [address], [place], [address], 09/20/2023 18:10:59 09/20/19 24 09/20/2023 COMP METAB OLIC PANEL globulin 3.0 Not Available [facility] ([facility]) [address], [place], [address], 09/20/2023 18:10:59 09/20/19 24 09/20/2023 COMP METAB OLIC PANEL alb/glob ratio 1.1 0.7-2 Not Available [facility] ([facility]) [address] , [place], [address], 09/20/2023 18:10:59 09/20/19 24 09/20/2023 COMP METAB OLIC PANEL calcium 8.5 mg/dL 8.5-10 .5 Not Available [facility] ([facility]) [address], [place], [address], 09/20/2023 18:10:59 09/20/19 24 09/20/2023 COMP METAB OLIC PANEL bilirubin total 0.60 mg/dL 0.10-1 .00 Not Available [facility] ([facility]) [address], [place], [address], 09/20/2023 18:10:59 09/20/19 24 09/20/2023 COMP METAB OLIC PANEL AST (SGOT) 17 U/L 0-37 Not Available [facility] ([facility]) [address], [place], [address], 09/20/2023 18:10:59 09/20/19 24 09/20/2023 COMP METAB OLIC PANEL ALT (SGPT) 14 U/L 0-65 Not Available [facility] ([facility]) [address], [place], [address], 09/20/2023 18:10:59 09/20/19 24 09/20/2023 COMP METAB OLIC PANEL alk phosphatase 72 U/L 46-116 Not Available [facility] ([facility]) [address], [place], [address], 09/20/2023 18:10:59 09/20/19 24 09/20/2023 VITAM IN D, 25-HY DROXY vitamin D, 25-hydroxy 55.5 NG/mL 30.0-1 00.0 Not Available [facility] ([facility]) [address], [place], [address], 09/20/2023 19:34:29 03/12/20 25 03/12/2025 XR, ankle No observ ation record ed. [facility] [address], [place], [address], 03/15/2025 15:54:46 03/12/20 25 03/12/2025 XR, ankle No observ ation record ed. [facility] [address], [place], [address], 03/15/2025 16:00:34 Result Notes None recorded. Problems Name Problem SNOMED Code Status Onset Date Resolution Date Notes Provider Name and Address Organization Details Recorded Time Thoracic back pain 704007207 Active 2016 Not Available [facility] 2 18:11:39 Dyspnea on exertion 36855610 Active 2016 Not Available [facility] 2 18:11:40 Morbid obesity 584132848 Active 2016 Not Available [facility] 2 18:11:40 Heartburn 85141660 Active 2016 Not Available [facility] 2 18:11:41 Weight loss 63587526 Active 2017 Weight loss Not Available [facility] 2 18:11:39 History of bariatric surgical procedure 787734055 Active 2017 History of bariatric surgical procedure Not Available [facility] 2 18:11:39 Iron deficienc y 40298603 Active 2017 Iron deficiency Not Available [facility] 2 18:11:40 Vitamin D deficienc y 85104587 Active 2017 Vitamin D deficiency Not Available [facility] 2 18:11:40 History of polyp of colon 234174823 Active 2017 History of polyp of colon Not Available [facility] 2 18:11:39 History of ulcerativ e colitis 011002065 Active 2017 History of ulcerative colitis Not Available [facility] 2 18:11:40 Constipat ion 89876286 Active 2017 Constipati on Not Available [facility] 2 18:11:41 Ulcerativ e colitis 99335425 Active 2017 Ulcerative colitis Not Available [facility] 2 18:11:41 Diarrhea 47675400 Active 2018 Diarrhea Not Available [facility] 2 18:11:40 Hematoche walter 891560629 Active 2018 Hematochez ia Not Available [facility] 2 18:11:40 Abdominal pain 17433599 Active 2018 Abdominal pain Not Available [facility] 2 18:11:40 Irritable bowel syndrome 88629998 Active 2018 Irritable bowel syndrome Not Available [facility] 2 18:11:41 Incontine nce of feces 68425858 Active 2018 Bowel incontinen ce Not Available [facility] 2 18:11:40 Urgent desire for stool 79878698 Active 2018 Fecal urgency Not Available [facility] 2 18:11:40 Rectal hemorrhag e 79457020 Active 2018 Blood per rectum Not Available [facility] 2 18:11:41 Iron deficienc y anemia 80934670 Active 2021 Iron deficiency anemia Not Available [facility] 2 18:11:40 Problem Notes None recorded. Procedures Surgical History Date Name Laterality Status Provider Name and Address Organization Details Recorded Time 10/31/19 Colonoscopy completed Lokesh CAVANAUGH - [place] - [place] [facility] [place] 11/20/2024 13:37:46 procedure on Bartholin's gland completed Lokesh CAVANAUGH - LPNT - [facility] 09/11/2024 13:37:36 Imaging Results None recorded. Procedure Notes None recorded. Medical Equipment None Reported. Allergies No known drug allergies Medications Name Sig Start Date Stop Date Status Note LastModified by Organization Details LastModified Time Prescriptio n - Prior Authorizati on Request active Not Available Not Available N ot Available amoxicillin 500 mg capsule TAKE ONE CAPSULE BY MOUTH THREE TIMES DAILY FOR 5 DAYS -- FINISH ALL MEDICINE -- 09/11 completed Not Available Not Available Not Available bupropion HCl SR 150 mg tablet,12 hr sustained-r elease TAKE 1 TABLET BY MOUTH ONCE DAILY FOR 3 DAYS THEN 1 TWICE DAILY active Not Available Not Available No t Available prednisone 10 mg tablet TAKE 1 TABLET BY MOUTH TWICE DAILY FOR 3 DAYS 09/11 completed Not Available Not Available Not Available azithromyci n 250 mg tablet TAKE 2 TABLETS BY MOUTH ON DAY 1, AND THEN TAKE 1 TABLET BY MOUTH ONCE A DAY ON DAY 2 THROUGH DAY 5 09/11 completed Not Available Not Available Not Available ibuprofen 800 mg tablet TAKE ONE TABLET BY MOUTH EVERY 8 HOURS NEEDED FOR PAIN --TAKE WITH FOOD-- active Not Available Not Available No t Available fluconazole 150 mg tablet TAKE ONE TABLET BY MOUTH A ONE-TIME DOSE FOR YEAST, REPEAT IN 3 DAYS 09/11 completed Not Available Not Available Not Available sulfamethox azole 400 mg-trimetho prim 80 mg tablet TAKE 1 TABLET BY MOUTH TWICE DAILY FOR 10 DAYS 11/20 completed Not Available Not Available Not Available hydrocodone 5 mg-acetamin ophen 325 mg tablet TAKE ONE TABLET BY MOUTH EVERY 6 HOURS NEEDED FOR PAIN MAY CAUSE DROWSINES S 09/11 completed Not Available Not Available Not Available phenazopyri dine 200 mg tablet TAKE 1 TABLET BY MOUTH THREE TIMES DAILY FOR 3 DAYS 09/11 completed Not Available Not Available Not Available phentermine 37.5 mg tablet TAKE ONE-HALF TABLET BY MOUTH IN THE MORNING AND ONE-HALF TABLET IN THE EARLY AFTERNOON EVERY DAY 09/11 completed Not Available Not Available Not Available ciprofloxac in 250 mg tablet TAKE ONE TABLET BY MOUTH TWICE DAILY FOR 3 DAYS -- FINISH ALL MEDICINE -- 09/11 completed Not Available Not Available Not Available sulfamethox azole 800 mg-trimetho prim 160 mg tablet TAKE TWO TABLETS BY MOUTH EVERY TWELVE HOURS FOR 7 DAYS -- FINISH ALL MEDICINE -- 09/11 completed Not Available Not Available Not Available levothyroxi ne 75 mcg tablet TAKE 1 TABLET BY MOUTH ONCE DAILY FOR THYROID active Not Available Not Available No t Available linezolid 600 mg tablet TAKE 1 TABLET BY MOUTH EVERY 12 HOURS FOR 7 DAYS 09/11 completed Not Available Not Available Not Available benzonatate 100 mg capsule TAKE 1 CAPSULE BY MOUTH THREE TIMES DAILY NEEDED FOR COUGH 09/11 completed Not Available Not Available Not Available nortriptyli ne 10 mg capsule TAKE 1 CAPSULE BY MOUTH AT BEDTIME FOR 7 DAYS THEN TAKE 2 AT BEDTIME Oral for 30 09/11 completed Not Available Not Available Not Available esomeprazol e magnesium 40 mg capsule,del ayed release Take 1 capsule every day by oral route for 30 days, for acid reflux. 2024 active Not Available Not Available Not Avai lable nitrofurant oin macrocrysta l 100 mg capsule TAKE ONE CAPSULE BY MOUTH TWICE DAILY FOR 7 DAYS -- FINISH ALL MEDICINE -- --TAKE WITH A MEAL/FOOD -- 09/11 completed Not Available Not Available Not Available docusate sodium 100 mg capsule TAKE 1 CAPSULE BY MOUTH ONCE DAILY active Not Available Not Available No t Available ergocalcife rol (vitamin D2) 1,250 mcg (50,000 unit) capsule 1 capsule Orally active Not Available Not Available No t Available methylpredn isolone 4 mg tablets in a dose pack TAKE BY MOUTH DIRECTED ON INSIDE OF PACKAGE 09/11 completed Not Available Not Available Not Available Lomotil 2.5 mg-0.025 mg tablet 1 tablet as needed Orally as needed for 30 days 2019 active Not Available Not Available Not Avai lable bromphenira mine-pseudo ephedrine-D M 2 mg-30 mg-10 mg/5 mL oral syrup TAKE 5 ML BY MOUTH EVERY 6 HOURS NEEDED FOR COUGH 09/11 completed Not Available Not Available Not Available oxycodone 5 mg tablet TAKE 1 TABLET BY MOUTH EVERY 4 HOURS NEEDED FOR MAJOR SURGERY/T RAUMA 09/11 completed Not Available Not Available Not Available hydroxyzine pamoate 25 mg capsule TAKE 1 CAPSULE BY MOUTH THREE TIMES DAILY NEEDED FOR SWELLING 09/11 completed Not Available Not Available Not Available nitrofurant oin monohydrate /macrocryst als 100 mg capsule TAKE ONE CAPSULE BY MOUTH TWICE DAILY WITH FOOD FOR 7 DAYS 09/11 completed Not Available Not Available Not Available Apriso 0.375 gram capsule,ext ended release TAKE 4 CAPSULES BY MOUTH ONCE DAILY 09/11 completed Not Available Not Available Not Available sodium,pota ssium,mag sulfates 17.5 gram-3.13 gram-1.6 gram oral soln Take 6 ounces twice a day by oral route as directed for 1 day, for colonosco py prep. 11/20 completed Not Available Not Available Not Available Entyvio 300 mg intravenous solution RECONSTIT DUANE WITH 4.8 ML STERILE WATER. ADD 5 ML TO 250 ML NS AND INFUSE 300 MG INTRAVENO USLY OVER 30 MINUTES EVERY 8 WEEKS. REFRIGERA TE. active Not Available Not Available No t Available Uceris 2 mg/actuatio n rectal foam 1 applicati on Rectal Twice a day for 30 days active Not Available Not Available No t Available Clenpiq 10 mg-3.5 gram-12 gram/160 mL oral solution Take 160 mL twice a day by oral route as directed for 1 day, for colonosco py prep. 09/11 completed Not Available Not Available Not Available Vitals Date Recorded Body height Body mass index (BMI) Body weight Body temperature Oxygen saturation Oxygen saturation in Arterial blood by Pulse oximetry Heart rate Systolic And Diastolic Provider Name and Address Organization Details Last Updated DateTime 5 158.75 cm 38.3 kg/m2 56011.1 7 g 97.2 [degF] 99 % 99 % 80 /min 128/94 mm[Hg] Lokesh CAVANAUGH - [place] [facility] 5 13:39:07 Date Recorded Body height Body mass index (BMI) Body weight Body temperature Heart rate Oxygen saturation Oxygen saturation in Arterial blood by Pulse oximetry Heart rate Systolic And Diastolic Provider Name and Address Organization Details Last Updated DateTime 4 158.75 cm 40 kg/m2 624169. 51 g 98 [degF] 88 /min 98 % 98 % 76 /min 121/83 mm[Hg] Helen CAVANAUGH - NT [facility] [place] 4 09:34:26 Date Recorded Body height Body mass index (BMI) Body weight Body temperature Heart rate Oxygen saturation Oxygen saturation in Arterial blood by Pulse oximetry Systolic And Diastolic Provider Name and Address Organization Details Last Updated DateTime 5 158.75 cm 37.9 kg/m2 67153.1 9 g 97 [degF] 85 /min 96 % 96 % 116/87 mm[Hg] Lokesh CAVANAUGH - LPNT [facility] & [place] 5 13:39:51 Date Recorded Body weight Body mass index (BMI) Body height Body temperature Heart rate Systolic And Diastolic Provider Name and Address Organization Details Last Updated DateTime 3 119172. 69 g 40.3 kg/m2 158.75 cm 97.9 [degF] 76 /min 125/87 mm[Hg] Taryn Suero [facility] & [place] 3 14:28:20 Date Recorded Body height Body mass index (BMI) Body weight Body temperature Oxygen saturation Oxygen saturation in Arterial blood by Pulse oximetry Heart rate Heart rate Systolic And Diastolic Provider Name and Address Organization Details Last Updated DateTime 4 158.75 cm 40.4 kg/m2 890494. 13 g 98.6 [degF] 99 % 99 % 85 /min 88 /min 109/81 mm[Hg] Gerald Vieira [facility] & [place] 4 10:13:38 Social History None recorded. Functional Status None recorded. Mental Status None recorded. Family History Nothing Reported. Medical History No medical history recorded. Gynecological HistoryNo gynecological history recorded. Obstetrics History GPAL:G 0 P 0 0 0 0 Past Encounters Encounter ID Performer Location Encounter Start Date Encounter Closed Date Diagnosis/Indication Diagnosis SNOMED-CT Code Diagnosis ICD10 Code Diagnosis IMO Codes Diagnosis Note [id number] Heriberto Tidwell PA-C [facility] [address] [address] 01/25/2023 13:41:41 01/25/2023 14:46:57 Ulcerative colitis 34676495 K51.90 Irritable bowel syndrome 60422339 K58.9 Rectal hemorrhage 627097 02 K62.5 Constipation 55625188 K5 9.00 Heartburn 70849347 R12 [id number] Abdifatah Malik MD [facility] [address] [address] 09/13/2023 09:28:52 09/13/2023 10:04:25 Irritable bowel syndrome 17757907 K58.9 Rectal hemorrhage 212845 02 K62.5 Constipation 85719970 K5 9.00 Heartburn 14073360 R12 Ulcerative colitis 85733 004 K51.90 [id number] PHILIPPE SANCHEZ NP [facility] [address] [address] 03/20/2024 10:02:07 03/20/2024 10:43:11 Irritable bowel syndrome 63324702 K58.9 Constipation 15062823 K5 9.00 Heartburn 53066484 R12 Ulcerative colitis 09630 004 K51.90 [id number] PHILIPPE SANCHEZ GLOBAL PROGRAM MANAGER [facility] [place] 6[address]67[address] 09/11/2024 13:28:26 09/11/2024 14:03:36 Irritable bowel syndrome 51696918 K58.9 Constipation 87456405 K5 9.00 Heartburn 92341192 R12 Ulcerative colitis 68902 004 K51.90 - schedule dx colon [id number] PHILIPPE SANCHEZ NP [facility] [address] [address] 11/20/2024 13:30:44 11/20/2024 14:08:57 Constipation 69899869 K59.00 - Intermitte nt issues. Dietary changes.- Recommende d using Mirlax as needed Heartburn 91745406 R12 - Prescribe Nexium 40 mg daily-Take PPI 30 minutes before eating for it to be effective- Elevation of head of the bed- Remain upright 2 to 3 hours after eating- Dietary modificati on: Avoidance of triggers such as fatty foods, caffeine, chocolate, spicy foods, food with high fat content, carbonated beverages, peppermint , acidic and citrus items- Avoidance of tight fitting garments- Promotion of salivation through oral lozenges/c hewing gum to neutralize refluxed acid- Avoidance of tobacco and alcohol Ulcerative colitis 51963 004 K51.90 -Reviewed colonoscop y which showed no active inflammato ry bowel disease- Continue entyvio Infusions every 8 weeks-main tenance :Continue vitamin D and calcium supplement s. Previously discussed routine pap smear, yearly flu vaccinatio n, and up to date Tdap.-Plan for surveilanc e colonoscop y with biopsies in 1 year (10/2025) Health Concerns Section Related Observation LastModified by Organization Detai ls LastModified Time None Recorded Concern Status LastModified by Organization Details LastModified Time None Recorded Advance Directives Directive None Recorded Payers Insurance Date Sequence Insurance Name Policy Number Policy Forman Covered Member ID Forman Member ID Guarantor Name 04/27/2019 1 [employer] (MEDICAID REPLACEMENT - HMO) [id number] Jessica Freeman [id number] Jessica Freeman 11/17/2024 1 [employer] [facility] (MEDICAID HMO) Jessica Freeman [id number] Jessica Freeman Notes Date Note Type Note Provider Name and Address Organization Details Recorded Time 01/25/2023 text/html PREVIOUS: She underwent colonoscopy per Dr. Malik on 02/07/2018 which revealed patchy mild inflammation throughout the colon with a cecal patch, normal terminal ileum (biopsy of terminal ileum revealed no pathologic ulcerations) and several inflammatory appearing polyps within the sigmoid colon (colon polyp biopsies revealed inflammatory pseudopolyps with ulceration and marketed acute inflammation, negative for dysplasia). Biopsies obtained throughout the colon revealed reactive colon mucosa with minimal chronic inflammation and lymphoid aggregates; negative for ulceration, granulomas, crypt abscesses or dysplasia. 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 This raises some concern for possible Crohn's disease.She started Entyvio in late July 2019.PREVIOUS (09/12/21): Mrs. Freeman is a pleasant 41 yo female who returns for follow up regarding ulcerative colitis. She is doing well. She has 1 solid BM per day without blood. She has no pain. She is on Entyvio and Apriso only now. CURRENT (01/25/23): Ms. Freeman returns to the clinic today regarding follow-up for ulcerative colitis. She has continued treatment with Entyvio infusions q 8 weeks and Apriso 4 capsules once daily. She remains in symptomatic remission. She reports 1 formed BM daily without bleeding. She denies abdominal pain. She is tolerating Entyvio infusions well. Her last infusion was this morning. Heriberto Tidwell PA-C [address], [place], [address], [facility] [place] [facility] [place] 01/25/2023 16:54:29 09/13/2023 text/html PREVIOUS: She underwent colonoscopy per Dr. Malik on 02/07/2018 which revealed patchy mild inflammation throughout the colon with a cecal patch, normal terminal ileum (biopsy of terminal ileum revealed no pathologic ulcerations) and several inflammatory appearing polyps within the sigmoid colon (colon polyp biopsies revealed inflammatory pseudopolyps with ulceration and marketed acute inflammation, negative for dysplasia). Biopsies obtained throughout the colon revealed reactive colon mucosa with minimal chronic inflammation and lymphoid aggregates; negative for ulceration, granulomas, crypt abscesses or dysplasia. Findings consistent with ulcerative colitis with quiescent to mild inflammatory activity. 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 This raises some concern for possible Crohn's disease. She started Entyvio in late July 2019. PREVIOUS (09/12/21): Mrs. Freeman is a pleasant 41 yo female who returns for follow up regarding ulcerative colitis. She is doing well. She has 1 solid BM per day without blood. She has no pain. She is on Entyvio and Apriso only now. PREVIOUS (01/25/23): Ms. Freeman returns to the clinic today regarding follow-up for ulcerative colitis. She has continued treatment with Entyvio infusions q 8 weeks and Apriso 4 capsules once daily. She remains in symptomatic remission. She reports 1 formed BM daily without bleeding. She denies abdominal pain. She is tolerating Entyvio infusions well. Her last infusion was this morning. CURRENT (09/13/23 Delfino Mckeon): Ms. Freeman presents to the clinic today for follow-up of ulcerative colitis. She has continued treatment with Entyvio infusions Q 8 weeks and Apriso 4 capsules PO once daily. She remains in symptomatic remission. Her next Entyvio infusion is scheduled for Wednesday. She does report some intermittent abdominal pain that she controls with her diet. She reports one formed bowel movement daily. She does experience occasional diarrhea. She denies hematemesis, hematochezia or melena. IAN MCKEON MSN, CAMPAIGN MARKETING MANAGER, [employer]-C [address] , [place], [address], [facility] - [place] - [place] & [place] 09/13/2023 10:43:44 03/20/2024 text/html PREVIOUS: She underwent colonoscopy per Dr. Malik on 02/07/2018 which revealed patchy mild inflammation throughout the colon with a cecal patch, normal terminal ileum (biopsy of terminal ileum revealed no pathologic ulcerations) and several inflammatory appearing polyps within the sigmoid colon (colon polyp biopsies revealed inflammatory pseudopolyps with ulceration and marketed acute inflammation, negative for dysplasia). Biopsies obtained throughout the colon revealed reactive colon mucosa with minimal chronic inflammation and lymphoid aggregates; negative for ulceration, granulomas, crypt abscesses or dysplasia. Findings consistent with ulcerative colitis with quiescent to mild inflammatory activity. 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 This raises some concern for possible Crohn's disease. She started Entyvio in late July 2019. PREVIOUS (09/12/21): Mrs. Freeman is a pleasant 41 yo female who returns for follow up regarding ulcerative colitis. She is doing well. She has 1 solid BM per day without blood. She has no pain. She is on Entyvio and Apriso only now. PREVIOUS (01/25/23): Ms. Freeman returns to the clinic today regarding follow-up for ulcerative colitis. She has continued treatment with Entyvio infusions q 8 weeks and Apriso 4 capsules once daily. She remains in symptomatic remission. She reports 1 formed BM daily without bleeding. She denies abdominal pain. She is tolerating Entyvio infusions well. Her last infusion was this morning. Previous (09/13/23 Delfino Mckeon): Ms. Freeman presents to the clinic today for follow-up of ulcerative colitis. She has continued treatment with Entyvio infusions Q 8 weeks and Apriso 4 capsules PO once daily. She remains in symptomatic remission. Her next Entyvio infusion is scheduled for Wednesday. She does report some intermittent abdominal pain that she controls with her diet. She reports one formed bowel movement daily. She does experience occasional diarrhea. She denies hematemesis, hematochezia or melena. Current (03/20/2024 Janene Sanchez): Mrs. Freeman presents to clinic today for follow-up for ulcerative colitis. She has been continuing her Entyvio infusions Q 8 weeks but has been forgetting her Apriso occasionally. she reports no diarrhea, no pain with bowel movements, no bloody stools. Even when she forgets her Apriso she has been doing well just the Entyvio. We discussed stopping Apriso and monitoring symptoms. She is currently being treated for UTI right now but symptoms are improving on antibiotics. Plan for colonoscopy today. PHILIPPE SANCHEZ, GLOBAL PROGRAM MANAGER [address], [place], [address], [facility] [place] [facility] [place] 03/20/2024 10:54:42 09/11/2024 text/html PREVIOUS: She underwent colonoscopy per Dr. Malik on 02/07/2018 which revealed patchy mild inflammation throughout the colon with a cecal patch, normal terminal ileum (biopsy of terminal ileum revealed no pathologic ulcerations) and several inflammatory appearing polyps within the sigmoid colon (colon polyp biopsies revealed inflammatory pseudopolyps with ulceration and marketed acute inflammation, negative for dysplasia). Biopsies obtained throughout the colon revealed reactive colon mucosa with minimal chronic inflammation and lymphoid aggregates; negative for ulceration, granulomas, crypt abscesses or dysplasia. Findings consistent with ulcerative colitis with quiescent to mild inflammatory activity. 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 This raises some concern for possible Crohn's disease. She started Entyvio in late July 2019. PREVIOUS (09/12/21): Mrs. Freeman is a pleasant 41 yo female who returns for follow up regarding ulcerative colitis. She is doing well. She has 1 solid BM per day without blood. She has no pain. She is on Entyvio and Apriso only now. PREVIOUS (01/25/23): Ms. Freeman returns to the clinic today regarding follow-up for ulcerative colitis. She has continued treatment with Entyvio infusions q 8 weeks and Apriso 4 capsules once daily. She remains in symptomatic remission. She reports 1 formed BM daily without bleeding. She denies abdominal pain. She is tolerating Entyvio infusions well. Her last infusion was this morning. Previous (09/13/23 Delfino Mckeon): Ms. Freeman presents to the clinic today for follow-up of ulcerative colitis. She has continued treatment with Entyvio infusions Q 8 weeks and Apriso 4 capsules PO once daily. She remains in symptomatic remission. Her next Entyvio infusion is scheduled for Wednesday. She does report some intermittent abdominal pain that she controls with her diet. She reports one formed bowel movement daily. She does experience occasional diarrhea. She denies hematemesis, hematochezia or melena. PREVIOUS (03/20/2024 Janene Sanchez): Mrs. Freeman presents to clinic today for follow-up for ulcerative colitis. She has been continuing her Entyvio infusions Q 8 weeks but has been forgetting her Apriso occasionally. she reports no diarrhea, no pain with bowel movements, no bloody stools. Even when she forgets her Apriso she has been doing well just the Entyvio. We discussed stopping Apriso and monitoring symptoms. She is currently being treated for UTI right now but symptoms are improving on antibiotics. Plan for colonoscopy today. CURRENT: Ms. Freeman is here for follow up. She had to rescheduled her previous appointments. She was also unable to get her colonoscopy.done in April due to transportation issues. At her last appointment we planned to stop Apriso and see how she did on Entyvio infusions alone. She has been doing well.Most recent infusion was 3 weeks ago. No issues getting her infusions through [facility]. She reports no diarrhea, no pain with bowel movements, no bloody stools. She continues to take Vitamin D and calcium supplement. Up to date on her pap smear. She just had labs draw by PCP at [facility]. She is off work for 2 weeks for a Bartholin's cyst removed. Otherwise no complaints. PHILIPPE SANCHEZ, GLOBAL PROGRAM MANAGER [address] [facility], [place], [address], [facility] & [place] 09/11/2024 14:00:37 11/20/2024 text/html Ms. Freeman is here for Procedure follow-up. Her initial colonoscopy with Dr. Malik on 02/07/2018 revealed patchy mild inflammation throughout the colon with a cecal patch, normal terminal ileum (biopsy of terminal ileum revealed no pathologic ulcerations) and several inflammatory appearing polyps within the sigmoid colon (colon polyp biopsies revealed inflammatory pseudopolyps with ulceration and marketed acute inflammation, negative for dysplasia). Biopsies obtained throughout the colon revealed reactive colon mucosa with minimal chronic inflammation and lymphoid aggregates; negative for ulceration, granulomas, crypt abscesses or dysplasia. Findings consistent with ulcerative colitis with quiescent to mild inflammatory activity. 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 This raises some concern for possible Crohn's disease. She started Entyvio infusions in late July 2019.I reviewed here recent colonoscopy which showed no signs of active IBD. Pathology reviewed and showed normal mucosa. Her last appointment we had discussed stopping Apriso. She is getting Entyvio infusions every 8 weeks. She has been doing well. She denies Abdominal pain, diarrhea or bloody stools. She is occasionally having constipation issues. She complains of frequent heartburn and takes mylanta or tums daily. Never tried PPI. She denies any new symptoms. PHILIPPE SANCHEZ, GLOBAL PROGRAM MANAGER [address], [place], [address], [facility] [place] - [place] & [place] 11/20/2024 18:20:05 OBGyn Episode No OBEpisode recorded.
== END 2025-04-26 23:59 | disposition home or self-care (01) ==
LOC: RAD 10:29
PROVIDERS: PCP Internal Medicine; Visit Provider Orthopaedic Surgery
DX: S82.61XD Displaced fracture of lateral malleolus of right fibula, subsequent encounter for closed fracture with routine healing (principal); R93.6 Abnormal findings on diagnostic imaging of limbs; Z98.890 Other specified postprocedural states
CPT/HCPCS: 73610

== ENCOUNTER 2025-05-17 09:50 | Outpatient (CLI) | payer OTHER, SELFPAY ==
--- OUTSIDE RECORDS SUMMARY | 2025-05-11 06:51 | XMS_ITS | Continuity of Care Document ---
Author Organization [facility] Phone Care Team Providers Care Area Manager Name Role Phone PAM SIU Admitting PAM SIU Primary Attending NO, DEFINED P Primary Care Unavailable ALLERGIES AND ADVERSE REACTIONS ALLERGIES AND ADVERSE REACTIONS Code System Allergy Substance Adverse Reaction Date Reaction (Severity) Comment Status Reported By Updated By No Known Allergies [id number] on October 16, 2024 7:32:56 PM [facility] FAMILY HISTORY RELATION: Father Status: LIVING SNOMED-CT Diagnosis Age At Onset [id number] Hypertensive disorder [id number] Hypercholesterolemia RELATION: Mother Status: LIVING SNOMED-CT Diagnosis Age At Onset [id number] Disorder of thyroid gland MEDICATIONS HOME MEDICATIONS Status RXNORM [facility] Medication Dose Route Frequency Dates Comments Reported By Updated By Active [id number] 58230 99465 9 Apriso Oral Capsule Extended Release 24 Hour 0.375 GM 4.0 CAP ORAL DAILY Last Dose: [id number] on April 16, 2025 12:58:28 PM [facility] Active 35653 99194 5 Biotin Oral Tablet 5000 MCG 5000. 0 MCG ORAL DAILY Last Dose: [id number] on April 16, 2025 12:58:29 PM [facility] Active 01160 83182 8 Calcium 500+D High Potency Oral Tablet 500-400 MG-UNIT 1.0 TAB ORAL DAILY Last Dose: [id number] on April 16, 2025 12:58:29 PM [facility] Active 2916426 22441 32238 0 Entyvio Intravenous Solution Reconstitute d 300 MG 300.0 MG INTRAV ENOUS Last Dose: every 8 weeks PHYSICI [id number] on April 16, 2025 12:58:29 PM [facility] Active 773893 16737 74860 2 levothyroxin e (SYNTHROID) 75.0 MCG ORAL DAILY Last Dose: [id number] on April 16, 2025 12:58:29 PM [facility] Active 88548 13930 1 multiple vitamin (ONE-A-DAY) 1.0 TAB ORAL DAILY Last Dose: [id number] on April 16, 2025 12:58:29 PM [facility] Active 841787 38411 00317 0 Wellbutrin XL Oral Tablet Extended Release 24 Hour 150 MG 1.0 TAB ORAL DAILY Last Dose: [id number] on April 16, 2025 12:58:29 PM [facility] DISCHARGE MEDICATIONS Status RXNORM ND Medication Dose Route Frequency Dates Dis pense Data Comments Physician Updated By No Discharge Medication Info rmation Available INPATIENT MEDICATIONS Status RXNORM [facility] Medication Dose Route Frequency Rat e Quantity Dates Indication Dispense Data Comments Physician Updated By Discont inued [id number] 6188 4030 020 vedolizumab (ENTYVIO) 300 MG SOLR 300.0 MG INTRAV ENOUS ONE TIME ADMINISTRA TION (UNSCHEDUL ED) 560.0 ML/HR Start: [facility] 2024 5:16:0 0 PM [place] End: [facility] 2024 5:16:3 6 PM [place] CASE DANA Rodriguez [id number] on April 12, 2025 5:16:00 PM UTC Discont inued 7840249 0040 9710 102 sodium chloride 0.9% SOLN 250.0 ML INTRAV ENOUS ONE TIME ADMINISTRA TION (UNSCHEDUL ED) 560.0 ML/HR Start: [facility] 2024 5:16:0 0 PM UTC End: [facility] 2024 5:16:3 6 PM [facility] CASE DANA Rodriguez [id number] on April 12, 2025 5:16:00 PM UTC Discont inued [id number] 4547 4030 020 vedolizumab (ENTYVIO) 300 MG SOLR 300.0 MG INTRAV ENOUS ONE TIME ADMINISTRA TION (UNSCHEDUL ED) 560.0 ML/HR Start: [facility] 2024 12:00: 00 PM UTC End: [facility] 2024 1:17:1 7 PM [place] CASE DANA Rodriguez [id number] on April 16, 2025 1:17:00 PM [place] Discont inued [id number] 0040 9710 102 sodium chloride 0.9% SOLN 250.0 ML INTRAV ENOUS ONE TIME ADMINISTRA TION (UNSCHEDUL ED) 560.0 ML/HR Start: [facility] 2024 12:00: 00 PM UTC End: [facility] 2024 1:17:1 7 PM UTC MIKE Rodriguez [id number] on April 16, 2025 1:17:00 PM UTC SOCIAL HISTORY SOCIAL HISTORY - Smoking Status SNOMED-CT Social History Element Description Effective Dates Offered Cessation Comment Updated By [id number] Historical Tobacco smoking status Never Smoked [id number] on October 27, 2024 2:46:11 PM UTC SOCIAL HISTORY - Gender Sex: Female SOCIAL HISTORY - Status : status i nformation is not available Intention in Next Year: intention information is not available SOCIAL HISTORY - Assessments Code System Description Status Date Value of Assessment Updated By Comment Assessment Information is no t available SOCIAL HISTORY - Ewiiaapaayp Affiliation Ewiiaapaayp information is not av ailable SOCIAL HISTORY - Legal Sex Legal Sex information is not available SOCIAL HISTORY - Sexual Behavior Sexual Orientation Gender Identity SNOMED-CT Description SNO MED -CT Description Activity Level No of Partners Partner Type UpdatedBy Information is not available SOCIAL HISTORY - Occupation Occupation information is no t available VITAL SIGNS PATIENT VITAL SIGNS This section displays the mo st recent value for each vital sign as of May 11, 2025 11:51:06 AM UTC Loinc Code Vital Sign Activity Date Result Updated By 8310-5 Body temperature April 16, 2025 1:00:00 PM UTC 97.6 [degF] 8462-4 Diastolic blood pressure April 16, 2025 1:50:00 PM UTC 68.0 mm[Hg] 8867-4 Heart rate April 16, 2025 1:50:00 PM UTC 71 /min 87079-1 Oxygen saturation in Arterial blood by Pulse oximetry April 16, 2025 1:00:00 PM UTC 97.0 % 9279-1 Respiratory rate April 16, 2025 1:00:00 PM UTC 18 /min 8480-6 Systolic blood pressure April 16, 2025 1:50:00 PM UTC 118.0 mm[Hg] PEDIATRIC GROWTH CHART - VITAL SIGNS This section displays Head C ircumference Percentile, Weight for Length Percentile and BMI Percentile Loinc Code Pediatric Measure Age (Months) Result Updat ed By No Pediatric Growth Chart Pe rcentile Information Available. HEALTH CONCERNS Problems Concern Status Health Concern problem infor mation not available. Smoking Status Status Years Used Consumed packs p er day Health Concern smoking histo ry information not available. Family History Concern Status Health Concern family histor y information not available. ENCOUNTERS ENCOUNTER INFORMATION Reason for Visit Not Specified Admission April 16, 2025 12:44:00 PM [facility] [address] [facility] [id number] Discharge May 10, 2025 8:26:00 PM [facility] DISCHARGED TO HOME OR SELF CARE ENCOUNTER DIAGNOSES Notes information is not michelle ilable. Code System Diagnosis Onset Date Diagnosis information is not available. 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, UNSPECIFIED, WITHOUT COMPLICATIONS [id number] on May 11, 2025 11:50:50 AM [facility] CARE TEAM Care Area Manager Role PAM SIU Admitting PAM SIU Primary Attending DEFINED NO Primary Care CARE TEAM CARE operations forester Role on Team Location Telecom Status Start Date End Russel e Updated By NO DEFINED PRIMARY C PCP normal February 05, 2025 2:56:33 PM [facility] May 10, 2025 8:26:00 PM [facility] [id number] on February 05, 2025 2:56:33 PM [facility] SALBADOR BAGRER Attending normal February 05, 2025 2:56:33 PM [facility] May 10, 2025 8:26:00 PM [facility] [id number] on February 05, 2025 2:56:33 PM [facility] SALBADOR BARGER Admitting normal February 05, 2025 2:56:33 PM [facility] May 10, 2025 8:26:00 PM [facility] [id number] on February 05, 2025 2:56:33 PM [facility]
--- OUTSIDE RECORDS SUMMARY | 2025-05-17 09:56 | XMS_ITS | Clinical Summary ---
Author Organization [facility] Address [address] [place] [address] Phone Care Team Providers Care Certified Nurse Aide Name Role Phone Unavailable Primary Care Provider [...] this topic Medical Devices Implanted Type Area Animal Caretaker Supervisor Device Identifier Shelf Expiration Date Model / Serial / Lot Breast Implants Insurance [facility] [id number] [facility] [id number]
--- OUTSIDE RECORDS SUMMARY | 2025-05-17 09:56 | XMS_ITS | Data Portability ---
Author Organization [place] [facility] [place] [facility] [place] [facility] Address [address] [place] [address] Care Team Providers Care Cleat Thrower Name Role Phone DENISE WOODS Primary Care Provider Assessment Encounter Date Assessment Date Assessment LastModified [...] flu vaccination, and up to date Tdap. Not available 01/25/2023 16:54:09 09/13/2023 09/13/2023 43-year-old [...] up to date Tdap. 6 month f/u [email or web address] Not available 09/13/2023 10:43:23 03/20/2024 03/20/2024 44-year-old [...] CRP, Sed rate but had them [facility] (request labs results) Not available 09/11/2024 13:59:33 11/20/2024 11/20/2024 44-year-old female with: Not available 11/19/2024 23:23:19 Plan of Treatment Reminders Order Date Submit Date Provider Last Modified By Organization Details Last Modified Time Details Appointments None recorded. Lab CMP, serum or plasma 2023 024 [facility] (Registration ), [address], [place], [address], 4 18:10:59 CBC w/ auto diff 2023 024 [facility] (Registration ), [address], [place], [address], 4 16:21:34 vitamin D, 25-hydroxy, total, serum [address] (Registration ), [address], [place], [address], 4 13:49:55 CMP, serum or plasma [address] (Registration ), [address], [place], [address], 3 08:49:06 CBC w/ auto diff [address] (Registration ), [address], [place], [address], 3 08:49:06 vitamin D, 25-hydroxy, total, serum [address] (Registration ), [address], [place], [address], 3 08:49:06 Referral None recorded. Procedures None recorded. Surgeries None recorded. Imaging None recorded. Medication Orders esomeprazol e magnesium 40 mg capsule,del ayed release 2024 025 [email or web address], [address], [address], 5 14:03:00 Apriso 0.375 gram capsule,ext ended release 2022 023 [email or web address] [facility], [address] [place], [address], 5 13:36:22 Patient TargetsNo targets recorded. Patient Instructions Encounter Date Encounter Id Patient Instructions Last Modified By Organization Details Last Modified Time 01/25/2023 [id number] DATE OF OPERATIO N: 02/16/2022 SURGEON: Abdifatah [...] a repeat surveillance colonoscopy in 2 years. [email or web address] Not available 01/25/2023 16:52:24 09/13/2023 [id number] DATE OF OPERATIO N: 02/16/2022 SURGEON: Abdifatah [...] a repeat surveillance colonoscopy in 2 years. Not available 08/01/2023 17:34:34 11/20/2024 [id number] f/u 1 month Not available 06/2025 18:14:43 Reason for Referral None Reported. Results Created Date Observation Date Name Description Value Unit Range Abnormal Flag Note LastModifiedBy Organization Detail LastModifiedTime 03/29/2003/29/2023 CBC AUTO W DIFF WBC 7.2 K/uL 4.0-10 .5 Not Available [facility] ([facility]) [address], [place], [address], 03/29/2023 12:40:36 03/29/2003/29/2023 CBC AUTO W DIFF RBC 4.4 M/mm3 4.2-6. 4 Not Available [facility] ([facility]) [address], [place], [address], 03/29/2023 12:40:36 03/29/20 23 03/29/2023 CBC AUTO W DIFF HGB 13.8 gm/dL 12.5-1 6.0 Not Available [facility] ([facility]) [address], [place], [address], 03/29/2023 12:40:36 03/29/20 23 03/29/2023 CBC AUTO W DIFF HCT 41.4 % 37.0-4 7.0 Not Available [facility] ([facility]) [address], [place], [address], 03/29/2023 12:40:36 03/29/20 23 03/29/2023 CBC AUTO W DIFF MCV 94.3 fL 78-100 Not Available [facility] ([facility]) [address], [place], [address], 03/29/2023 12:40:36 03/29/20 23 03/29/2023 CBC AUTO W DIFF MCH 31.4 pg 27-31 high Not Available [facility] ([facility]) [address], [place], [address], 03/29/2023 12:40:36 03/29/20 23 03/29/2023 CBC AUTO W DIFF MCHC 33.3 g/dL 32-36 Not Available [facility] ([facility]) [address] , [place], [address], 03/29/2023 12:40:36 03/29/20 23 03/29/2023 CBC AUTO W DIFF RDW 12.1 % 11.5-1 4.0 Not Available [facility] ([facility]) [address] , [place], [address], 03/29/2023 12:40:36 03/29/20 23 03/29/2023 CBC AUTO W DIFF platelet count 283 K/uL 150-45 0 Not Available [facility] ([facility]) [address] , [place], [address], 03/29/2023 12:40:36 03/29/20 23 03/29/2023 CBC AUTO W DIFF MPV 9.7 fL 6-9.5 high Not Available [facility] ([facility]) [address] , [place], [address], 03/29/2023 12:40:36 03/29/20 23 03/29/2023 CBC AUTO W DIFF neutrophil% 61.4 % 43-65 Not Available [facility] ([facility]) [address], [place], [address], 03/29/2023 12:40:36 03/29/20 23 03/29/2023 CBC AUTO W DIFF lymphocyte% 25.0 % 20.5-4 5.5 Not Available [facility] ([facility]) [address], [place], [address], 03/29/2023 12:40:36 03/29/20 23 03/29/2023 CBC AUTO W DIFF monocyte% 8.5 % 5.5-11 .7 Not Available [facility] ([facility]) [address], [place], [address], 03/29/2023 12:40:36 03/29/20 23 03/29/2023 CBC AUTO W DIFF eosinophil% 4.6 % 0.9-2. 9 high Not Available [facility] ([facility]) [address] [place], [address], 03/29/2023 12:40:36 03/29/20 23 03/29/2023 CBC AUTO W DIFF basophil% 0.4 % 0.2-1. 0 Not Available [facility] [address] [place], [address], 03/29/2023 12:40:36 03/29/20 23 03/29/2023 CBC AUTO W DIFF immature granulocytes % 0.1 % 0.0-0. 8 Not Available [facility] ([facility]) [address], [place], [address], 03/29/2023 12:40:36 03/29/20 23 03/29/2023 CBC AUTO W DIFF nucleated red blood cells % 0.0 % Not Available [facility] ([facility]) [address] [facility], [place], [address], 03/29/2023 12:40:36 03/29/20 23 03/29/2023 CBC AUTO W DIFF neutrophil# 4.4 K/uL 2.2-4. 8 Not Available [facility] ([facility]) [address] [facility], [place], [address], 03/29/2023 12:40:36 03/29/20 23 03/29/2023 CBC AUTO W DIFF lymphocyte# 1.8 cell/ mcL 1.3-2. 9 Not Available [facility] ([facility]) [address] [facility], [place], [address], 03/29/2023 12:40:36 03/29/20 23 03/29/2023 CBC AUTO W DIFF monocyte# 0.6 cell/ mcL 0.3-0. 8 Not Available [facility] ([facility]) [address] [facility], [place], [address], 03/29/2023 12:40:36 03/29/20 23 03/29/2023 CBC AUTO W DIFF eosinophil# 0.3 cell/ mcL 0-0.2 high Not Available [facility] ([facility]) [address], [place], [address], 03/29/2023 12:40:36 03/29/20 23 03/29/2023 CBC AUTO W DIFF basophil# 0.0 cell/ mcL 0.0-1. 0 Not Available [facility] ([facility]) [address], [place], [address], 03/29/2023 12:40:36 03/29/20 23 03/29/2023 CBC AUTO W DIFF immature gramulocytes # 0.01 K/uL Not Available [facility] ([facility]) [address], [place], [address], 03/29/2023 12:40:36 03/29/20 23 03/29/2023 CBC AUTO W DIFF nucleated red blood cells # 0.00 K/uL Not Available [facility] ([facility]) [address] , [place], [address], 03/29/2023 12:40:36 03/29/20 23 03/29/2023 CBC AUTO W DIFF manual differential NO Not Available [facility] ([facility]) [address] , [place], [address], 03/29/2023 12:40:36 03/29/20 23 03/29/2023 COMP METAB OLIC PANEL sodium 140 mmol/ L 136-14 5 Not Available [facility] ([facility]) [address], [place], [address], 03/29/2023 13:15:09 03/29/20 23 03/29/2023 COMP METAB OLIC PANEL potassium 4.0 mmol/ L 3.6-5. 0 Not Available [facility] ([facility]) [address] , [place], [address], 03/29/2023 13:15:09 03/29/20 23 03/29/2023 COMP METAB OLIC PANEL chloride 107 mmol/ L 98-107 Not Available [facility] ([facility]) [address] , [place], [address], 03/29/2023 13:15:09 03/29/20 23 03/29/2023 COMP METAB OLIC PANEL carbon dioxide 26.2 mmol/ L 21.0-3 2.0 Not Available [facility] ([facility]) [address] , [place], [address], 03/29/2023 13:15:09 03/29/20 23 03/29/2023 COMP METAB OLIC PANEL anion gap 10.8 Not Available [facility] ([facility]) [address], [place], [address], 03/29/2023 13:15:03/29/20 23 03/29/2023 COMP METAB OLIC PANEL glucose 82 mg/dL 70-120 Not Available [facility] ([facility]) [address] , [place], [address], 03/29/2023 13:15:09 03/29/20 23 03/29/2023 COMP METAB OLIC PANEL BUN 11 mg/dL 7-18 Not Available [facility] ([facility]) [address] , [place], [address], 03/29/2023 13:15:09 03/29/20 23 03/29/2023 COMP METAB OLIC PANEL creatinine 0.9 mg/dL 0.6-1. 3 Not Available [facility] ([facility]) [address] , [place], [address], 03/29/2023 13:15:09 03/29/20 23 03/29/2023 COMP METAB OLIC PANEL glomerular filtration rate >60 mlper min 60- Not Available [facility] ([facility]) [address] , [place], [address], 03/29/2023 13:15:09 03/29/20 23 03/29/2023 COMP METAB OLIC PANEL total protein 6.9 g/dL 6.4-8. 2 Not Available [facility] ([facility]) [address] , [place], [address], 03/29/2023 13:15:09 03/29/20 23 03/29/2023 COMP METAB OLIC PANEL albumin 3.6 g/dL 3.4-5. 0 Not Available [facility] ([facility]) [address], [place], [address], 03/29/2023 13:15:09 03/29/20 23 03/29/2023 COMP METAB OLIC PANEL globulin 3.3 Not Available [facility] ([facility]) [address] , [place], [address], 03/29/2023 13:15:09 03/29/20 23 03/29/2023 COMP METAB OLIC PANEL alb/glob ratio 1.1 0.7-2 Not Available [facility] ([facility]) [address], [place], [address], 03/29/2023 13:15:09 03/29/20 23 03/29/2023 COMP METAB OLIC PANEL calcium 8.6 mg/dL 8.5-10 .5 Not Available [facility] ([facility]) [address] , [place], [address], 03/29/2023 13:15:09 03/29/20 23 03/29/2023 COMP METAB OLIC PANEL bilirubin total 0.40 mg/dL 0.10-1 .00 Not Available [facility] ([facility]) [address] , [place], [address], 03/29/2023 13:15:09 03/29/20 23 03/29/2023 COMP METAB OLIC PANEL AST (SGOT) 11 U/L 0-37 Not Available [facility] ([facility]) [address] , [place], [address], 03/29/2023 13:15:09 03/29/20 23 03/29/2023 COMP METAB OLIC PANEL ALT (SGPT) 18 U/L 0-65 Not Available [facility] ([facility]) [address], [place], [address], 03/29/2023 13:15:09 03/29/20 23 03/29/2023 COMP METAB OLIC PANEL alk phosphatase 73 U/L 46-116 Not Available [facility] ([facility]) [address], [place], [address], 03/29/2023 13:15:09 03/29/20 23 03/29/2023 VITAM IN D, 25-HY DROXY vitamin D, 25-hydroxy 58.8 NG/mL 30.0-1 00.0 Not Available [facility] ([facility]) [address], [place], [address], 03/29/2023 22:22:07 09/20/19 24 09/20/2023 CBC AUTO W DIFF WBC 9.0 K/uL 4.0-10 .5 Not Available [facility] ([facility]) [address] [place], [address], 09/20/2023 16:21:34 09/20/19 24 09/20/2023 CBC AUTO W DIFF RBC 4.4 M/mm3 4.2-6. 4 Not Available [facility] ([facility]) [address] , [place], [address], 09/20/2023 16:21:34 09/20/19 24 09/20/2023 CBC AUTO W DIFF HGB 13.6 gm/dL 12.5-1 6.0 Not Available [facility] ([facility]) [address] , [place], [address], 09/20/2023 16:21:34 09/20/19 24 09/20/2023 CBC AUTO W DIFF HCT 40.7 % 37.0-4 7.0 Not Available [facility] ([facility]) [address] , [place], [address], 09/20/2023 16:21:34 09/20/19 24 09/20/2023 CBC AUTO W DIFF MCV 92.9 fL 78-100 Not Available [facility] ([facility]) [address] , [place], [address], 09/20/2023 16:21:34 09/20/19 24 09/20/2023 CBC AUTO W DIFF MCH 31.1 pg 27-31 high Not Available [facility] ([facility]) [address] , [place], [address], 09/20/2023 16:21:34 09/20/19 24 09/20/2023 CBC AUTO W DIFF MCHC 33.4 g/dL 32-36 Not Available [facility] ([facility]) [address], [place], [address], 09/20/2023 16:21:34 09/20/19 24 09/20/2023 CBC AUTO W DIFF RDW 12.6 % 11.5-1 4.0 Not Available [facility] ([facility]) [address] [place], [address], 09/20/2023 16:21:34 09/20/19 24 09/20/2023 CBC AUTO W DIFF platelet count 246 K/uL 150-45 0 Not Available [facility] ([facility]) [address] , [place], [address], 09/20/2023 16:21:34 09/20/19 24 09/20/2023 CBC AUTO W DIFF MPV 9.8 fL 6-9.5 high Not Available [facility] ([facility]) [address], [place], [address], 09/20/2023 16:21:34 09/20/19 24 09/20/2023 CBC AUTO W DIFF neutrophil% 65.2 % 43-65 high Not Available [facility] ([facility]) [address], [place], [address], 09/20/2023 16:21:34 09/20/19 24 09/20/2023 CBC AUTO W DIFF lymphocyte% 25.0 % 20.5-4 5.5 Not Available [facility] ([facility]) [address], [place], [address], 09/20/2023 16:21:34 09/20/19 24 09/20/2023 CBC AUTO W DIFF monocyte% 6.8 % 5.5-11 .7 Not Available [facility] ([facility]) [address] [facility], [place], [address], 09/20/2023 16:21:34 09/20/19 24 09/20/2023 CBC AUTO W DIFF eosinophil% 2.3 % 0.9-2. 9 Not Available [facility] ([facility]) [address], [place], [address], 09/20/2023 16:21:34 09/20/19 24 09/20/2023 CBC AUTO W DIFF basophil% 0.4 % 0.2-1. 0 Not Available [facility] ([facility]) [address], [place], [address], 09/20/2023 16:21:34 09/20/19 24 09/20/2023 CBC AUTO W DIFF immature granulocytes % 0.3 % 0.0-0. 8 Not Available [facility] ([facility]) [address], [place], [address], 09/20/2023 16:21:34 09/20/19 24 09/20/2023 CBC AUTO W DIFF nucleated red blood cells % 0.0 % Not Available [facility] ([facility]) [address], [place], [address], 09/20/2023 16:21:34 09/20/19 24 09/20/2023 CBC AUTO W DIFF neutrophil# 5.8 K/uL 2.2-4. 8 high Not Available [facility] ([facility]) [address], [place], [address], 09/20/2023 16:21:34 09/20/19 24 09/20/2023 CBC AUTO W DIFF lymphocyte# 2.2 cell/ mcL 1.3-2. 9 Not Available [facility] ([facility]) [address], [place], [address], 09/20/2023 16:21:34 09/20/19 24 09/20/2023 CBC AUTO W DIFF monocyte# 0.6 cell/ mcL 0.3-0. 8 Not Available [facility] ([facility]) [address], [place], [address], 09/20/2023 16:21:34 09/20/19 24 09/20/2023 CBC AUTO W DIFF eosinophil# 0.2 cell/ mcL 0-0.2 Not Available [facility] ([facility]) [address] [facility], [place], [address], 09/20/2023 16:21:34 09/20/19 24 09/20/2023 CBC AUTO W DIFF basophil# 0.0 cell/ mcL 0.0-1. 0 Not Available [facility] ([facility]) [address] [facility], [place], [address], 09/20/2023 16:21:34 09/20/19 24 09/20/2023 CBC AUTO W DIFF immature gramulocytes # 0.03 K/uL Not Available [facility] ([facility]) [address] [place], [address], 09/20/2023 16:21:34 09/20/19 24 09/20/2023 CBC AUTO W DIFF nucleated red blood cells # 0.00 K/uL Not Available [facility] ([facility]) [address] [place], [address], 09/20/2023 16:21:34 09/20/19 24 09/20/2023 CBC AUTO W DIFF manual differential NO Not Available [facility] ([facility]) [address], [place], [address], 09/20/2023 16:21:34 09/20/19 24 09/20/2023 COMP METAB OLIC PANEL sodium 136 mmol/ L 136-14 5 Not Available [facility] ([facility]) [address] [place], [address], 09/20/2023 18:10:59 09/20/19 24 09/20/2023 COMP METAB OLIC PANEL potassium 3.5 mmol/ L 3.6-5. 0 low Not Available [facility] ([facility]) [address] [place], [address], 09/20/2023 18:10:59 09/20/19 24 09/20/2023 COMP METAB OLIC PANEL chloride 103 mmol/ L 98-107 Not Available [facility] ([facility]) [address] [place], [address], 09/20/2023 18:10:59 09/20/19 24 09/20/2023 COMP METAB OLIC PANEL carbon dioxide 21.4 mmol/ L 21.0-3 2.0 Not Available [facility] ([facility]) [address] [place], [address], 09/20/2023 18:10:59 09/20/19 24 09/20/2023 COMP METAB OLIC PANEL anion gap 15.1 Not Available [facility] ([facility]) [address] [place], [address], 09/20/2023 18:10:59 09/20/19 24 09/20/2023 COMP METAB OLIC PANEL glucose 100 mg/dL 70-120 Not Available [facility] ([facility]) [address], [place], [address], 09/20/2023 18:10:59 09/20/19 24 09/20/2023 COMP METAB OLIC PANEL BUN 13 mg/dL 7-18 Not Available [facility] ([facility]) [address], [place], [address], 09/20/2023 18:10:59 09/20/19 24 09/20/2023 COMP METAB OLIC PANEL creatinine 1.0 mg/dL 0.6-1. 3 Not Available [facility] ([facility]) [address], [place], [address], 09/20/2023 18:10:59 09/20/19 24 09/20/2023 COMP METAB OLIC PANEL glomerular filtration rate >60 mlper min 60- Not Available [facility] ([facility]) [address], [place], [address], 09/20/2023 18:10:59 09/20/19 24 09/20/2023 COMP METAB OLIC PANEL total protein 6.3 g/dL 6.4-8. 2 low Not Available [facility] ([facility]) [address], [place], [address], 09/20/2023 18:10:59 09/20/19 24 09/20/2023 COMP METAB OLIC PANEL albumin 3.3 g/dL 3.4-5. 0 low Not Available [facility] ([facility]) [address], [place], [address], 09/20/2023 18:10:59 09/20/19 24 09/20/2023 COMP METAB OLIC PANEL globulin 3.0 Not Available [facility] ([facility]) [address], [place], [address], 09/20/2023 18:10:59 09/20/19 24 09/20/2023 COMP METAB OLIC PANEL alb/glob ratio 1.1 0.7-2 Not Available [facility] ([facility]) [address] [place], [address], 09/20/2023 18:10:59 09/20/19 24 09/20/2023 COMP METAB OLIC PANEL calcium 8.5 mg/dL 8.5-10 .5 Not Available [facility] ([facility]) [address], [place], [address], 09/20/2023 18:10:59 09/20/19 24 09/20/2023 COMP METAB OLIC PANEL bilirubin total 0.60 mg/dL 0.10-1 .00 Not Available [facility] ([facility]) [address], [place], [address], 09/20/2023 18:10:59 09/20/19 24 09/20/2023 COMP METAB OLIC PANEL AST (SGOT) 17 U/L 0-37 Not Available [facility] ([facility]) [address], [place], [address], 09/20/2023 18:10:59 09/20/19 24 09/20/2023 COMP METAB OLIC PANEL ALT (SGPT) 14 U/L 0-65 Not Available [facility] ([facility]) [address], [place], [address], 09/20/2023 18:10:59 09/20/19 24 09/20/2023 COMP METAB OLIC PANEL alk phosphatase 72 U/L 46-116 Not Available [facility] ([facility]) [address], [place], [address], 09/20/2023 18:10:59 09/20/19 24 09/20/2023 VITAM IN D, 25-HY DROXY vitamin D, 25-hydroxy 55.5 NG/mL 30.0-1 00.0 Not Available [facility] ([facility]) [address], [place], [address], 09/20/2023 19:34:29 03/12/20 25 03/12/2025 XR, ankle No observ ation record ed. [facility] [address], [place], [address], 03/15/2025 15:54:46 03/12/20 25 03/12/2025 XR, ankle No observ ation record ed. [facility] [address], [place], [address], 03/15/2025 16:00:34 Result Notes None recorded. Problems Name Problem SNOMED Code Status Onset Date Resolution Date Notes Provider Name and Address Organization Details Recorded Time Thoracic back pain 855698465 Active 2016 Not Available [facility] 2 18:11:39 Dyspnea on exertion 67426570 Active 2016 Not Available [facility] 2 18:11:40 Morbid obesity 720832644 Active 2016 Not Available [facility] 2 18:11:40 Heartburn 30290058 Active 2016 Not Available [facility] 2 18:11:41 Weight loss 41355447 Active 2017 Weight loss Not Available [facility] 2 18:11:39 History of bariatric surgical procedure 890560791 Active 2017 History of bariatric surgical procedure Not Available [facility] 2 18:11:39 Iron deficienc y 25771542 Active 2017 Iron deficiency Not Available [facility] 2 18:11:40 Vitamin D deficienc y 58994299 Active 2017 Vitamin D deficiency Not Available [facility] 2 18:11:40 History of polyp of colon 684641416 Active 2017 History of polyp of colon Not Available [facility] 2 18:11:39 History of ulcerativ e colitis 733706726 Active 2017 History of ulcerative colitis Not Available [facility] 2 18:11:40 Constipat ion 62690787 Active 2017 Constipati on Not Available [facility] 2 18:11:41 Ulcerativ e colitis 77601305 Active 2017 Ulcerative colitis Not Available [facility] 2 18:11:41 Diarrhea 59812514 Active 2018 Diarrhea Not Available [facility] 2 18:11:40 Hematoche walter 626598041 Active 2018 Hematochez ia Not Available [facility] 2 18:11:40 Abdominal pain 09832278 Active 2018 Abdominal pain Not Available [facility] 2 18:11:40 Irritable bowel syndrome 67143452 Active 2018 Irritable bowel syndrome Not Available [facility] 2 18:11:41 Incontine nce of feces 62036371 Active 2018 Bowel incontinen ce Not Available [facility] 2 18:11:40 Urgent desire for stool 35366733 Active 2018 Fecal urgency Not Available [facility] 2 18:11:40 Rectal hemorrhag e 50143283 Active 2018 Blood per rectum Not Available [facility] 2 18:11:41 Iron deficienc y anemia 86954192 Active 2021 Iron deficiency anemia Not Available [facility] 2 18:11:40 Problem Notes None recorded. Procedures Surgical History Date Name Laterality Status Provider Name and Address Organization Details Recorded Time 10/31/19 Colonoscopy completed [facility] - [place] 11/20/2024 13:37:46 procedure on Bartholin's gland completed [facility] - [facility] - [facility] 09/11/2024 13:37:36 Imaging Results None recorded. Procedure [...] Available Entyvio 300 mg intravenous solution RECONSTIT DAUNE WITH 4.8 ML STERILE WATER. ADD 5 [...] Updated DateTime 5 158.75 cm 38.3 kg/m2 63429.1 7 g 97.2 [degF] 99 % 99 % 80 /min 128/94 mm[Hg] [facility] - [facility] 5 13:39:07 Date Recorded Body height Body mass index (BMI) Body weight Body temperature Heart rate Oxygen saturation Oxygen saturation in Arterial blood by Pulse oximetry Heart rate Systolic And Diastolic Provider Name and Address Organization Details Last Updated DateTime 4 158.75 cm 40 kg/m2 984429. 51 g 98 [degF] 88 /min 98 % 98 % 76 /min 121/83 mm[Hg] Helen CAVANAUGH - NT [facility] & [place] 4 09:34:26 Date Recorded Body height Body mass index (BMI) Body weight Body temperature Heart rate Oxygen saturation Oxygen saturation in Arterial blood by Pulse oximetry Systolic And Diastolic Provider Name and Address Organization Details Last Updated DateTime 5 158.75 cm 37.9 kg/m2 25436.1 9 g 97 [degF] 85 /min 96 % 96 % 116/87 mm[Hg] Lokesh CAVANAUGH - LPNT [facility] & [place] 5 13:39:51 Date Recorded Body weight Body mass index (BMI) Body height Body temperature Heart rate Systolic And Diastolic Provider Name and Address Organization Details Last Updated DateTime 3 736728. 69 g 40.3 kg/m2 158.75 cm 97.9 [degF] 76 /min 125/87 mm[Hg] Taryn Suero [facility] & [place] 3 14:28:20 Date Recorded Body height Body mass index (BMI) Body weight Body temperature Oxygen saturation Oxygen saturation in Arterial blood by Pulse oximetry Heart rate Heart rate Systolic And Diastolic Provider Name and Address Organization Details Last Updated DateTime 4 158.75 cm 40.4 kg/m2 301884. 13 g 98.6 [degF] 99 % 99 % 85 /min 88 /min 109/81 mm[Hg] Gerald Vieira [facility] & [place] 4 10:13:38 Social History None recorded. Functional Status None recorded. Mental Status None recorded. Family History Nothing Reported. Medical History No medical history recorded. Gynecological HistoryNo gynecological history recorded. Obstetrics History GPAL:G 0 P 0 0 0 0 Past Encounters Encounter ID Performer Location Encounter Start Date Encounter Closed Date Diagnosis/Indication Diagnosis SNOMED-CT Code Diagnosis ICD10 Code Diagnosis IMO Codes Diagnosis Note [id number] Heriberto Tidwell PA-C [facility] [address] [address] 01/25/2023 13:41:41 01/25/2023 14:46:57 Ulcerative colitis 29261017 K51.90 Irritable bowel syndrome 59198236 K58.9 Rectal hemorrhage 435771 02 K62.5 Constipation 43396478 K5 9.00 Heartburn 11336148 R12 [id number] Abdifatah Malik MD [facility] [address] [address] 09/13/2023 09:28:52 09/13/2023 10:04:25 Irritable bowel syndrome 90038836 K58.9 Rectal hemorrhage 063223 02 K62.5 Constipation 70820223 K5 9.00 Heartburn 42148719 R12 Ulcerative colitis 39863 004 K51.90 [id number] PHILIPPE SANCHEZ NP [facility] [address] [address] 03/20/2024 10:02:07 03/20/2024 10:43:11 Irritable bowel syndrome 42066602 K58.9 Constipation 87497227 K5 9.00 Heartburn 27862163 R12 Ulcerative colitis 67110 004 K51.90 [id number] PHILIPPE SANCHEZ FACTORY WORKER [facility] [place] 3555524-[address] 2 09/11/2024 13:28:26 09/11/2024 14:03:36 Irritable bowel syndrome 60034401 K58.9 Constipation 81043815 K5 9.00 Heartburn 32814471 R12 Ulcerative colitis 29981 004 K51.90 - schedule dx colon [id number] PHILIPPE SANCHEZ NP [facility] [address] [address] 11/20/2024 13:30:44 11/20/2024 14:08:57 Constipation 31229528 K59.00 - Intermitte nt issues. Dietary changes.- Recommende d using Mirlax as needed Heartburn 53970099 R12 - Prescribe Nexium 40 mg daily-Take [...] Avoidance of tobacco and alcohol Ulcerative colitis 26910 004 K51.90 -Reviewed colonoscop y which showed [...] ID Guarantor Name 04/27/2019 1 [employer] (MEDICAID REPLACEMENT - HMO) [id number] Jessica Freeman [id number] Jessica Freeman 11/17/2024 1 [employer] [facility] (MEDICAID HMO) Jessica Freeman [id number] Jessica Freeman Notes Date Note Type Note [...] infusion was this morning. Heriberto Tidwell PA-C [address], [place], [address], [facility] - [place] & [place] 01/25/2023 16:54:29 09/13/2023 text/html PREVIOUS: She underwent [...] hematemesis, hematochezia or melena. IAN MCKEON MSN, INTAKE RN, PRINTER MACHINE-C [address] , [place], [address], [facility] - [place] - [place] & [place] 09/13/2023 10:43:44 03/20/2024 text/html PREVIOUS: She underwent [...] antibiotics. Plan for colonoscopy today. PHILIPPE SANCHEZ, FACTORY WORKER [address], [place], [address], [facility] - [place] & [place] 03/20/2024 10:54:42 09/11/2024 text/html PREVIOUS: She underwent [...] ago. No issues getting her infusions through [facility]. She reports no diarrhea, no pain with bowel movements, no bloody stools. She continues to take Vitamin D and calcium supplement. Up to date on her pap smear. She just had labs draw by PCP at [facility]. She is off work for 2 weeks for a Bartholin's cyst removed. Otherwise no complaints. PHILIPPE SANCHEZ, FACTORY WORKER [address] [facility], [place], [address], [facility] - [place] [facility] & [place] 09/11/2024 14:00:37 11/20/2024 text/html Ms. Freeman is [...] She denies any new symptoms. PHILIPPE SANCHEZ, FACTORY WORKER [address], [place], [address], [facility] - [place] & [place] 11/20/2024 18:20:05 OBGyn Episode No OBEpisode recorded.
--- NOTE | 2025-05-17 09:59 | XR_ITS ---
FINAL REPORT CLINICAL HISTORY: right ankle fx F/U COMPARISON: 04/26/2025 FINDINGS: RIGHT ANKLE Three views were obtained. There is an incompletely healed distal fibular fracture status post ORIF with lateral screw plate fixation. There is lateral soft tissue swelling. IMPRESSION: Incompletely healed distal fibular fracture. Reviewed, Interpreted and Dictated by Toro Jennings MD Transcribed by Nona Chavez Authenticated and [facility]
== END 2025-05-17 23:59 | disposition home or self-care (01) ==
LOC: RAD 09:51
PROVIDERS: PCP Internal Medicine; Visit Provider Orthopaedic Surgery
DX: S82.61XD Displaced fracture of lateral malleolus of right fibula, subsequent encounter for closed fracture with routine healing (principal); X58.XXXD Exposure to other specified factors, subsequent encounter
CPT/HCPCS: 73610

== ENCOUNTER 2025-06-14 09:51 | Outpatient (CLI) | payer OTHER, SELFPAY ==
--- NOTE | 2025-06-14 09:58 | XR_ITS ---
FINAL REPORT CLINICAL HISTORY: right ankle pain COMPARISON: 05/17/2025 FINDINGS: RIGHT ANKLE 3 views of the right ankle were obtained. The moderate soft tissue swelling noted on the prior exam of 05/17/2025 has improved. The orthopedic sideplate and screws bridge the previously noted lateral distal fibular fracture. Osteopenia is present. There is no acute fracture or dislocation. A moderate plantar calcaneal spur is noted. The mortise is intact. Visualized joint spaces are normally aligned. Soft tissues are unremarkable. IMPRESSION: Decreased soft tissue swelling in the right ankle, with no change in the orthopedic hardware bridging the right distal fibular fracture. Reviewed, Interpreted and Dictated by Ermias Hung MD Transcribed by Bella Tidwell Authenticated and [facility]
--- OUTSIDE RECORDS SUMMARY | 2025-06-14 10:12 | XMS_ITS | Clinical Summary ---
Author Organization [facility] Address [address] [place] [address] Phone Care Team Providers Care Program Manager Transportation Name Role Phone Unavailable Primary Care Provider [...] this topic Medical Devices Implanted Type Area Milled Rubber Tender Device Identifier Shelf Expiration Date Model / Serial / Lot Breast Implants Insurance [facility] [id number] [facility] [id number]
== END 2025-06-14 23:59 | disposition home or self-care (01) ==
LOC: RAD 09:53
PROVIDERS: PCP Internal Medicine; Visit Provider Orthopaedic Surgery
DX: S82.61XD Displaced fracture of lateral malleolus of right fibula, subsequent encounter for closed fracture with routine healing (principal); Z98.890 Other specified postprocedural states
CPT/HCPCS: 73610